=== PATIENT | female | born 1950 | race Caucasian/White ===

== ENCOUNTER → 2016-10-13 | Outpatient (CLI) | payer MEDICARE ==
--- NOTE | 2016-10-14 10:05 | PE ---
EXAMINATION TYPE: PET CT fusion skull to thigh DATE OF EXAM: 10/13/2016 11:39 AM COMPARISON: Previous study dated 05/26/2016. HISTORY: Left-sided breast cancer. TECHNIQUE: Following the intravenous administration of 13.62 mCi of F-18 FDG, whole body images are performed from the skull base to the midthigh. Images are reviewed on the computer in the coronal, a xial, and sagittal planes. Reconstructed rotating images are created on independent workstation and reviewed on the computer. A localization and attenuation correction CT is performed in conjunction with the PET scan. Blood glucose: 196 mg/dL Average liver SUV: 2.99 Average mediastinal SUV: 2.88 Total DLP: 580.02 mGy-cm SCAN: Lobulated mass in the axillary tail of the left breast previously measured 4.6 x 1.6 cm. Again measures 4.4 x 2 cm. Maximal SUV value is 3.13. Previously this had an SUV value of 3.03 No other hypermetabolic activity is seen. FINDINGS: SKULL BASE AND NECK: Major salivary glands are normal. The parapharyngeal, oropharyngeal and laryngeal soft tissues are normal. There is no significant cerv ical adenopathy. CHEST, MEDIASTINUM, AND HILAR REGION: There is diffuse groundglass opacity throughout both lungs. There are several nodular opacities which are stable in comparison with previous examination and do not demonstrate hypermetabolic activity. There is no significant internal mammary, mediastinal or hilar adenopathy. The heart is enlarged. The re is no pleural or pericardial fluid. ABDOMEN AND PELVIS: Within the abdomen, there is a gallstone within the gallbladder. The liver and sp freda appear normal. Both adrenal glands appear normal. The remaining abdominal viscera appear unremarkable. The bladder is not distended. The uterus is unremarkable. The left ovary is visualized but the right is not. Visualized bowel loops appear normal. OSSEOUS STRUCTURES: Once again, innumerable sclerotic and lytic lesions are present throughout the sp ine. None of these are hypermetabolic. There are healed rib fractures in the left lower chest. There is also a healed fracture in the right fourth rib posteriorly. This hypertrophic spondylosis within t he spine. OTHER CT: None. IMPRESSION: 1. DIFFUSE OSSEOUS METASTASES WHICH ARE NOT HYPERMETABOLIC. 2. STABLE TREATED NEOPLASM IN THE LEFT AXILLA WITHOUT SIGNIFICANT SUV. 3. MULTIPLE PULMONARY NODULES, UNCHANGED FROM PREVIOUS WITHOUT HYPERMETABOLIC ACTIVITY. 4. CHOLELITHIASIS. 5. DIFFUSE GROUNDGLASS OPACITY WITHIN THE LUNGS MAY REPRESENT ONGOING ALVEOLITIS.
== END | disposition home or self-care (01) ==
LOC: RADPETMAIN 08:08
PROVIDERS: ATTEND Internal Medicine Hematology & Oncology
DX: C50.411 Malignant neoplasm of upper-outer quadrant of right female breast (principal); C79.51 Secondary malignant neoplasm of bone
CPT/HCPCS: 78815; A9552

== ENCOUNTER → 2017-06-01 | Outpatient (CLI) | payer MEDICARE ==
--- NOTE | 2017-06-03 13:30 | PE ---
Nuclear medicine PET/CT HISTORY: Metastatic breast carcinoma, subsequent, C 50.411 Patient received 14.4 mCi F-18 FDG intravenously in delayed scanning was performed from the skull bas e to the mid thighs. Localization and attenuation correction CT scan was also performed. SUV measurements may be affected by patient body habitus. Neck and chest: The left breast mass seen on previous exam is again noted and measures approximately 3.8 cm in greatest transverse dimension, SUV approximately 4.1 as compared to prior exam when it zulma ured approximately 3.3 cm with an SUV of approximately 3. At the medial aspect of the left breast the re is a soft tissue density which is increased in size now measuring approximately 17 mm in greatest anterior to posterior dimension whereas on previous measuring approximately 8 mm, now shows an SUV of 3.7, increased from previous exam when it did not show associated hypermetabolic uptake. Some small pleural-based nodularity is present in the right upper lobe posterior laterally which was not seen on previous exam, some mild associated hypermetabolic uptake is associated. Lung nodules are again seen without uptake. These are similar in appearance. No pleural or pericardial effusion. Port-A-Cath in place as on prior exam. Right lobe of thyroid again shows a focus of hypermetabolic uptake. Abdomen pelvis: Some small focal areas of hypermetabolic uptake are suspected within the liver are no t well seen on CT. No retroperitoneal adenopathy. Dependent high density within the gallbladder conrado tible with gallstone. Osseous structures: Diffuse osseous metastatic disease is again seen. Too numerous to count lesions a re present as on prior. IMPRESSION: Progression of abnormal soft tissue suspected within the left breast. There may be underl dario metastatic disease involving the liver, liver MRI may be of benefit. Metastatic disease to the l ungs and bones suspected. Findings are suspicious for new pleural metastatic disease. Additional find ings above.
== END | disposition home or self-care (01) ==
LOC: RADPETMAIN 10:19
PROVIDERS: ATTEND Internal Medicine Hematology & Oncology
DX: C50.411 Malignant neoplasm of upper-outer quadrant of right female breast (principal)
CPT/HCPCS: 78815; A9552

== ENCOUNTER → 2017-06-13 | Outpatient (CLI) | payer MEDICARE ==
--- NOTE | 2017-06-14 10:11 | ECHOF ---
Referral Reason:Breast Cancer C50.411, z01.818 Pre Hercetin MEASUREMENTS -------- HEIGHT: 152.4 cm WEIGHT: 133.4 kg BP: RVIDd: 2.2 cm (< 3.3) IVSd: 1.3 cm (0.6 - 1.1) LVIDd: 4.1 cm (3.9 - 5.3) LVPWd: 1.1 cm (0.6 - 1.1) EDV(Teich): 73 ml IVSs: 1.5 cm LVIDs: 3.3 cm LVPWs: 1.3 cm %IVS Thck: 20 % ESV(Teich): 44 ml EF(Teich): 40 % %FS: 19 % SV(Teich): 29 ml LA Diam: 3.5 cm (2.7 - 3.8) Ao Diam: 4.5 cm (2.0 - 3.7) AV Cusp: 2.3 cm (1.5 - 2.6) LA Diam: 4.4 cm (2.7 - 3.8) MV EXCURSION: 15.235 mm (> 18.000) MV EF SLOPE: 88 mm/s (70 - 150) EPSS: 0.3 cm MV E Sukhdev: 0.85 m/s MV DecT: 181 ms MV Dec Lem[place]: 4.7 m/s MV A Sukhdev: 0.76 m/s MV E/A Ratio: 1.11 MV PHT: 52 ms E/E': 9.14 E': 0.09 m/s AV Vmax: 2.02 m/s AV maxP.33 mmHg TR Vmax: 2.73 m/s TR maxP.73 mmHg RAP: 5.00 mmHg RVSP: 34.73 mmHg FINDINGS -------- Sinus rhythm. This was a technically adequate study. Morbid Obesity The left ventricular size is normal. There is mild concentric left ventricular hypertrophy. Overa ll left ventricular systolic function is low-normal with, an EF between 50 - 55 %. The right ventricle is normal in size. The left atrial size is normal. The right atrial size is normal. The aortic valve was not well visualized. Mild mitral regurgitation is present. Mild tricuspid regurgitation present. There is mild pulmonary hypertension. The right ventricular systolic pressure, as measured by Doppler, is 34.73mmHg. The pulmonic valve was not well visualized. The aortic root size is normal. There is no pericardial effusion. CONCLUSIONS -------- 1. Morbid Obesity 2. The left ventricular size is normal. 3. There is mild concentric left ventricular hypertrophy. 4. Overall left ventricular systolic function is low-normal with, an EF between 50 - 55 %. 5. The aortic valve was not well visualized. 6. Mild mitral regurgitation is present. 7. Mild tricuspid regurgitation present. 8. There is mild pulmonary hypertension. 9. The right ventricular systolic pressure, as measured by Doppler, is 34.73mmHg. 10. The pulmonic valve was not well visualized. 11. The aortic root size is normal. 12. There is no pericardial effusion. ULTRASONIC SOLDERER: Sammi Ireland RDCS
== END | disposition home or self-care (01) ==
LOC: RADECHMAIN 12:32
PROVIDERS: ATTEND Internal Medicine Hematology & Oncology
DX: I08.1 Rheumatic disorders of both mitral and tricuspid valves (principal); E66.01 Morbid (severe) obesity due to excess calories
CPT/HCPCS: 93306

== ENCOUNTER → 2017-09-28 | Outpatient (CLI) | payer MEDICARE ==
--- NOTE | 2017-10-01 11:57 | PE ---
Nuclear medicine PET/CT HISTORY: Breast carcinoma left, subsequent Patient received 12.9 mCi F-18 FDG intravenously in delayed scanning was performed from the skull bas e to the mid thighs. An attenuation correction and localization CT scan was performed. Correlation to prior exam 06/01/2017 nuclear medicine PET/CT FINDINGS: Neck and chest: No evident cervical or mediastinal adenopathy. Right pectoral Port-A-Cath present via IJ approach extends into the superior vena cava. Left breast shows soft tissue which is lobular in a ppearance and associated calcification similar to prior exam, lesion shows hypermetabolic uptake late rally, SUV is 4.1. Similar lobular soft tissue noted medially in the left breast and is also stable in size, SUV 3.9. Multiple lung nodules are stable, commissary representative nodule in the left upper lobe late rally shows an SUV of 2.4. No axillary adenopathy. There are coronary artery calcifications present. Thyroid gland shows some increased activity diffusely somewhat, greater on the right than on the left , SUV approximately 4. Abdomen pelvis: Gallstones present within the gallbladder. No evident adrenal or liver mass. No retro peritoneal adenopathy or ascites. Bowel uptake is thought likely to be physiologic. Osseous structures: Diffuse to numerous to count scattered foci of increased density are present thro ughout the skeleton as on prior exam. Sternal metastatic focus measures approximately SUV 3. Proximal right humerus lesion shows an SUV 2.7, right rib lesion 3.0 at the second rib laterally. IMPRESSION: Findings appear stable compared to prior exam.
== END | disposition home or self-care (01) ==
LOC: RADPETMAIN 11:19
PROVIDERS: ATTEND Internal Medicine Hematology & Oncology
DX: C50.411 Malignant neoplasm of upper-outer quadrant of right female breast (principal)
CPT/HCPCS: 78815; A9552

== ENCOUNTER → 2017-10-22 | Outpatient (CLI) | payer MEDICARE ==
--- NOTE | 2017-10-22 10:35 | ECHOF ---
Referral Reason:C50.411 breast ca MEASUREMENTS -------- HEIGHT: 154.9 cm WEIGHT: 124.3 kg BP: 154/65 RVIDd: 3.3 cm (< 3.3) IVSd: 1.1 cm (0.6 - 1.1) LVIDd: 5.4 cm (3.9 - 5.3) LVPWd: 1.0 cm (0.6 - 1.1) IVSs: 1.3 cm LVIDs: 3.5 cm LVPWs: 1.7 cm LA Diam: 3.6 cm (2.7 - 3.8) LAESV Index (A-L): 33.76 ml/m Ao Diam: 3.0 cm (2.0 - 3.7) AV Cusp: 1.8 cm (1.5 - 2.6) MV EXCURSION: 13.275 mm (> 18.000) MV EF SLOPE: 78 mm/s (70 - 150) EPSS: 0.2 cm MV E Sukhdev: 1.01 m/s MV DecT: 216 ms MV A Sukhdev: 0.70 m/s MV E/A Ratio: 1.44 RAP: 5.00 mmHg RVSP: 30.88 mmHg FINDINGS -------- Sinus rhythm. This was a technically adequate study. This was a technically difficult study with suboptimal views . The left ventricle is mildly dilated. There is borderline concentric left ventricular hypertrophy. Overall left ventricular systolic function is low-normal with, an EF between 50 - 55 %. The right ventricle is mildly enlarged. Normal LA size by volume 22+/-6 ml/m2. The right atrium is normal in size. The aortic valve was not well visualized. Mild mitral annular calcification present. Mild tricuspid regurgitation present. Right ventricular systolic pressure is normal at < 35 mmHg. The pulmonic valve was not well visualized. The aortic root size is normal. Normal inferior vena cava with normal inspiratory collapse consistent with estimated right atrial pre ssure of 5 mmHg. There is no pericardial effusion. CONCLUSIONS -------- 1. Sinus rhythm. 2. This was a technically adequate study. 3. This was a technically difficult study with suboptimal views. 4. The left ventricle is mildly dilated. 5. There is borderline concentric left ventricular hypertrophy. 6. Overall left ventricular systolic function is low-normal with, an EF between 50 - 55 %. 7. The right ventricle is mildly enlarged. 8. Normal LA size by volume 22+/-6 ml/m2. 9. The right atrium is normal in size. 10. The aortic valve was not well visualized. 11. Mild mitral annular calcification present. 12. Mild tricuspid regurgitation present. 13. Right ventricular systolic pressure is normal at < 35 mmHg. 14. The pulmonic valve was not well visualized. 15. The aortic root size is normal. 16. Normal inferior vena cava with normal inspiratory collapse consistent with estimated right atrial pressure of 5 mmHg. 17. There is no pericardial effusion. SUBSORTER: Cara Roberts RDCS
== END | disposition home or self-care (01) ==
LOC: RADECHMAIN 08:11
PROVIDERS: ATTEND Internal Medicine Hematology & Oncology
DX: Z01.818 Encounter for other preprocedural examination (principal); C50.411 Malignant neoplasm of upper-outer quadrant of right female breast; I07.1 Rheumatic tricuspid insufficiency; I70.8 Atherosclerosis of other arteries
CPT/HCPCS: 93306

== ENCOUNTER → 2018-02-24 | Outpatient (CLI) | payer MEDICARE ==
--- NOTE | 2018-02-24 09:57 | ECHOF ---
Referral Reason:z01.818 / cHEMO / bREAST cANCER MEASUREMENTS -------- HEIGHT: 154.9 cm WEIGHT: 116.1 kg BP: 178/100 RVIDd: 3.0 cm (< 3.3) IVSd: 1.3 cm (0.6 - 1.1) LVIDd: 3.9 cm (3.9 - 5.3) LVPWd: 1.3 cm (0.6 - 1.1) IVSs: 1.5 cm LVIDs: 3.1 cm LVPWs: 1.7 cm LA Diam: 3.6 cm (2.7 - 3.8) LAESV Index (A-L): 23.90 ml/m Ao Diam: 3.0 cm (2.0 - 3.7) AV Cusp: 1.8 cm (1.5 - 2.6) MV EXCURSION: 11.453 mm (> 18.000) MV EF SLOPE: 64 mm/s (70 - 150) EPSS: 0.9 cm MV E Sukhdev: 0.90 m/s MV DecT: 216 ms MV A Sukhdev: 0.81 m/s MV E/A Ratio: 1.11 AV maxP.72 mmHg AV meanP.05 mmHg AR PHT: 548 ms RAP: 5.00 mmHg RVSP: 25.16 mmHg FINDINGS -------- Sinus rhythm. This was a technically adequate study. The left ventricular size is normal. There is mild concentric left ventricular hypertrophy. Overa ll left ventricular systolic function is normal with, an EF between 55 - 60 %. The right ventricle is normal in size. The left atrial size is normal. The right atrium is normal in size. There is mild aortic valve sclerosis. There is mild aortic regurgitation. There is mild aortic st enosis present. The mitral valve leaflets are mildly thickened. Mild mitral annular calcification present. Mild tricuspid regurgitation present. Right ventricular systolic pressure is normal at < 35 mmHg. Trace/mild (physiologic) pulmonic regurgitation. The aortic root size is normal. Normal inferior vena cava with normal inspiratory collapse consistent with estimated right atrial pre ssure of 5 mmHg. There is no pericardial effusion. CONCLUSIONS -------- 1. Sinus rhythm. 2. This was a technically adequate study. 3. The left ventricular size is normal. 4. There is mild concentric left ventricular hypertrophy. 5. Overall left ventricular systolic function is normal with, an EF between 55 - 60 %. 6. The right ventricle is normal in size. 7. The left atrial size is normal. 8. The right atrium is normal in size. 9. There is mild aortic valve sclerosis. 10. There is mild aortic regurgitation. 11. There is mild aortic stenosis present. 12. The mitral valve leaflets are mildly thickened. 13. Mild mitral annular calcification present. 14. Mild tricuspid regurgitation present. 15. Right ventricular systolic pressure is normal at < 35 mmHg. 16. Trace/mild (physiologic) pulmonic regurgitation. 17. The aortic root size is normal. 18. Normal inferior vena cava with normal inspiratory collapse consistent with estimated right atrial pressure of 5 mmHg. 19. There is no pericardial effusion. KICK PRESS SETTER: Cara Roberts RDCS
== END | disposition home or self-care (01) ==
LOC: RADECHMAIN 08:02
PROVIDERS: ATTEND Internal Medicine Hematology & Oncology
DX: Z01.818 Encounter for other preprocedural examination (principal); C50.411 Malignant neoplasm of upper-outer quadrant of right female breast; I08.2 Rheumatic disorders of both aortic and tricuspid valves
CPT/HCPCS: 93306

== ENCOUNTER → 2018-06-02 | Outpatient (CLI) | payer MEDICARE ==
--- NOTE | 2018-06-03 18:22 | ECHOF ---
Referral Reason:Z01.818 Chemo / C50.411 Breast cancer MEASUREMENTS -------- HEIGHT: 0.0 cm WEIGHT: 0.0 kg BP: RVIDd: 2.6 cm (< 3.3) IVSd: 1.3 cm (0.6 - 1.1) LVIDd: 3.7 cm (3.9 - 5.3) LVPWd: 1.3 cm (0.6 - 1.1) IVSs: 1.5 cm LVIDs: 2.6 cm LVPWs: 1.7 cm LA Diam: 4.0 cm (2.7 - 3.8) LAESV Index (A-L): 23.37 ml/m Ao Diam: 2.7 cm (2.0 - 3.7) LA Diam: 4.1 cm (2.7 - 3.8) MV EXCURSION: 17.354 mm (> 18.000) MV EF SLOPE: 78 mm/s (70 - 150) EPSS: 0.4 cm MV E Sukhdev: 0.61 m/s MV DecT: 305 ms MV A Sukhdev: 0.74 m/s MV E/A Ratio: 0.82 AV maxP.84 mmHg AV meanP.91 mmHg RAP: 5.00 mmHg RVSP: 12.32 mmHg FINDINGS -------- Sinus rhythm. This was a technically adequate study. The left ventricular size is normal. There is mild concentric left ventricular hypertrophy. Overa ll left ventricular systolic function is low-normal with, an EF between 50 - 55 %. The right ventricle is normal in size. The left atrial size is normal. Normal LA size by volume 22+/-6 ml/m2. The right atrial size is normal. There is mild aortic valve sclerosis. There is mild aortic stenosis present. Peak/mean gradient a cross the Aortic Valve is 17.84mmHg / 9.91mmHg. Mild mitral annular calcification present. Mild mitral regurgitation is present. Mild tricuspid regurgitation present. There is no evidence of pulmonary hypertension. The right v entricular systolic pressure, as measured by Doppler, is 12.32mmHg. The pulmonic valve was not well visualized. The aortic root size is normal. There is no pericardial effusion. CONCLUSIONS -------- 1. The left ventricular size is normal. 2. There is mild concentric left ventricular hypertrophy. 3. Overall left ventricular systolic function is low-normal with, an EF between 50 - 55 %. 4. The right ventricle is normal in size. 5. The left atrial size is normal. 6. Normal LA size by volume 22+/-6 ml/m2. 7. The right atrial size is normal. 8. There is mild aortic valve sclerosis. 9. There is mild aortic stenosis present. 10. Peak/mean gradient across the Aortic Valve is 17.84mmHg / 9.91mmHg. 11. Mild mitral annular calcification present. 12. Mild mitral regurgitation is present. 13. Mild tricuspid regurgitation present. 14. There is no evidence of pulmonary hypertension. 15. The right ventricular systolic pressure, as measured by Doppler, is 12.32mmHg. 16. The pulmonic valve was not well visualized. 17. The aortic root size is normal. 18. There is no pericardial effusion. CHILDREN'S ENTERTAINER: Sammi Ireland RDCS
== END | disposition home or self-care (01) ==
LOC: RADECHMAIN 14:25
PROVIDERS: ATTEND Internal Medicine Hematology & Oncology
DX: Z01.818 Encounter for other preprocedural examination (principal); I08.3 Combined rheumatic disorders of mitral, aortic and tricuspid valves; C50.411 Malignant neoplasm of upper-outer quadrant of right female breast
CPT/HCPCS: 93306

== ENCOUNTER → 2018-06-07 | Outpatient (CLI) | payer MEDICARE ==
--- NOTE | 2018-06-07 15:50 | PE ---
EXAMINATION TYPE: PET CT fusion skull to thigh DATE OF EXAM: 06/07/2018 COMPARISON: Most recent PET CT September 28, 2017 and older PET CTs. HISTORY: History of left sided breast cancer diagnosed 2015 completed chemotherapy June 04, 2018. TECHNIQUE: Following the intravenous administration of 14.25 mCi of F-18 FDG, whole body images are performed from the skull base to the midthigh. Images are reviewed on the computer in the coronal, a xial, and sagittal planes. Reconstructed rotating images are created on independent workstation and reviewed on the computer. A noncontrast CT is performed in conjunction with the PET scan. SCAN: Subsequent Scan FINDINGS: SKULL BASE AND NECK: No new areas of suspicious hypermetabolic uptake are present in the neck. There is hypermetabolic right thyroid nodule with max SUV 3.08 axial image 59 redemonstrated. CHEST, MEDIASTINUM, AND HILAR REGION: There are 2 adjacent medial soft tissue nodules in the left maya ast redemonstrated appear slightly more prominent in size versus most recent PET/CT, lateral one zulma ures 1.4 x 1.9 cm transversely axial image 80. More medial one measures 1.8 x 1.6 cm transversely axi al image 78 and shows persistent increased hypermetabolic uptake with max SUV of 4.1 on current study . Upper-outer quadrant laterally abutting the skin surface with calcification there is hypermetabolic n odule posteriorly axial image 69 with max SUV 3.45. This lesion or 2 adjacent lesions measures 3.8 x 2.0 cm axial image 67 with similar measurements to most recent prior PET/CT. Mild skin thickening and hypermetabolic uptake anteriorly in the left breast remains present without significant interval change. Scattered ametabolic pulmonary nodules remain present, 2 adjacent nodules anterior left upper to midl juani axial image 80 are not significantly changed in size or appearance from most recent CT for refere nce. Larger nodule laterally left lung base on axial image 94 is not significantly changed and remain s ametabolic. ABDOMEN AND PELVIS: Diffuse uptake throughout the liver and bowel is redemonstrated, no suspicious ne w hypermetabolic focal uptake is clearly seen. OSSEOUS STRUCTURES: No new suspicious hypermetabolic uptake is clearly identified. OTHER CT: There is stable right internal jugular Mediport catheter terminating in SVC. There is redemonstration of coronary artery cavitation which is noted marker for coronary artery dise ase. There are enlarged right and main pulmonary arteries, CT findings consistent with underlying pul monary artery hypertension. Dependent gallstone in gallbladder is redemonstrated. Some cortical thinning in both kidneys is again seen. There is moderate to severe calcified plaque of aorta extending into branch vessels. Diffuse osseous sclerotic metastatic disease throughout the spine and pelvis including bilateral ribs and sternum in visualized portion of shoulders and hips is redemonstrated. IMPRESSION: No significant interval change as detailed above. Treated osseous metastatic disease. No new hypermetabolic lesions identified. EORTC response criteria: Stable Metabolic Disease. Change in MaxSUV < 25% Primary tumor response WHO category: NC - No change
== END ==
LOC: RADPETMAIN 09:24
PROVIDERS: ATTEND Internal Medicine Hematology & Oncology
DX: C50.411 Malignant neoplasm of upper-outer quadrant of right female breast (principal); C79.51 Secondary malignant neoplasm of bone; E88.9 Metabolic disorder, unspecified
CPT/HCPCS: 78815; A9552

== ENCOUNTER → 2018-08-22 | Outpatient (CLI) | payer MEDICARE ==
--- NOTE | 2018-08-22 11:39 | CT ---
EXAMINATION TYPE: CT lumbar spine wo con DATE OF EXAM: 08/22/2018 8:29 AM COMPARISON: PET/CT June 07, 2018 HISTORY: Breast CA with mets to bone. prior radiation to spine. Low back pain CT DLP: 2367.2 mGycm Automated exposure control for dose reduction was used. 5 lumbar-type vertebra are redemonstrated. There is redemonstration of dextroconvex scoliotic curvatu re centered in the lower lumbar spine. There are innumerable sclerotic metastatic lesions throughout the visualized thoracolumbar spine and pelvis. There is grade 1 anterolisthesis of L5 on S1 with adva nced disc space narrowing. No acute fracture or dislocation is seen. There is advanced disc space ernie rowing with vacuum disc phenomenon L2-L3 and L3-L4 levels. There is moderate disc space narrowing wit h vacuum disc phenomenon L4-L5 level. Multilevel moderate to severe anterior lateral spurring is pres ent. There is calcification effacing anterior thecal sac presumed calcified spur disc complex T12-L1 level on sagittal image 35 which correlates with axial image 26. Review of axial images shows additional moderate broad disc bulge and mild facet degenerative changes L3-L4 level with some effacement of anterior thecal sac axial image 54. There is moderate to severe broad disc bulge with moderate facet degenerative changes bilaterally cau sing effacement anterior posterior lateral thecal sac at L4-L5 level axial image 64. Bilateral pars defect L5 level are present. Sagittal images do not extend through bilateral neural foramina making evaluation suboptimal. There i s suspected multilevel bilateral neural foraminal narrowing most prominent in the mid to lower lumbar spine. There is partial visualization of suspicious nodules left lower lobe axial image 9 which correlates w ith PET/CT. There is moderate calcified plaque of the infrarenal abdominal aorta extending into iliac branch vessels with focal ectasia redemonstrated. IMPRESSION: Diffuse osseous metastatic disease redemonstrated. Multilevel fairly advanced degenerati ve changes noted as detailed above..
== END | disposition home or self-care (01) ==
LOC: RADCTMAIN 08:04
PROVIDERS: ATTEND Internal Medicine Hematology & Oncology
DX: C79.51 Secondary malignant neoplasm of bone (principal); M54.5 Low back pain; C50.419 Malignant neoplasm of upper-outer quadrant of unspecified female breast
CPT/HCPCS: 72131

== ENCOUNTER → 2018-09-23 | Outpatient (CLI) | payer MEDICARE ==
--- NOTE | 2018-09-23 11:48 | ECHOF ---
Referral Reason:C50.411 Breast Ca Z01.818 Chemo MEASUREMENTS -------- HEIGHT: 152.4 cm WEIGHT: 113.4 kg BP: RVIDd: 3.2 cm (< 3.3) IVSd: 1.3 cm (0.6 - 1.1) LVIDd: 4.2 cm (3.9 - 5.3) LVPWd: 1.5 cm (0.6 - 1.1) IVSs: 1.7 cm LVIDs: 3.4 cm LVPWs: 1.3 cm LA Diam: 3.7 cm (2.7 - 3.8) LAESV Index (A-L): 27.44 ml/m MV EXCURSION: 17.180 mm (> 18.000) MV EF SLOPE: 86 mm/s (70 - 150) EPSS: 0.5 cm MV E Sukhdev: 0.59 m/s MV DecT: 263 ms MV A Sukhdev: 0.72 m/s MV E/A Ratio: 0.83 AV maxP.82 mmHg AV meanP.60 mmHg AR PHT: 282 ms RAP: 5.00 mmHg RVSP: 40.48 mmHg FINDINGS -------- Sinus rhythm. This was a technically adequate study. The left ventricular size is normal. There is mild concentric left ventricular hypertrophy. Overa ll left ventricular systolic function is normal with, an EF between 55 - 60 %. The right ventricle is normal in size. Normal LA size by volume 22+/-6 ml/m2. The right atrial size is normal. There is mild aortic valve sclerosis. There is mild aortic regurgitation. There is mild aortic st enosis present. Peak/mean gradient across the Aortic Valve is 18.82mmHg / 7.60mmHg. Mild mitral annular calcification present. Mild mitral regurgitation is present. Mild tricuspid regurgitation present. There is mild pulmonary hypertension. The right ventricular systolic pressure, as measured by Doppler, is 40.48mmHg. Trace/mild (physiologic) pulmonic regurgitation. The aortic root size is normal. There is no pericardial effusion. CONCLUSIONS -------- 1. Sinus rhythm. 2. This was a technically adequate study. 3. The left ventricular size is normal. 4. There is mild concentric left ventricular hypertrophy. 5. Overall left ventricular systolic function is normal with, an EF between 55 - 60 %. 6. Normal LA size by volume 22+/-6 ml/m2. 7. There is mild aortic valve sclerosis. 8. There is mild aortic regurgitation. 9. There is mild aortic stenosis present. 10. Peak/mean gradient across the Aortic Valve is 18.82mmHg / 7.60mmHg. 11. Mild mitral annular calcification present. 12. Mild mitral regurgitation is present. 13. Mild tricuspid regurgitation present. 14. There is mild pulmonary hypertension. 15. Trace/mild (physiologic) pulmonic regurgitation. 16. The aortic root size is normal. 17. There is no pericardial effusion. PRECINCT COMMANDING OFFICER: Sammi Ireland RDCS
== END | disposition home or self-care (01) ==
LOC: RADECHMAIN 08:27
PROVIDERS: ATTEND Internal Medicine Hematology & Oncology
DX: Z01.818 Encounter for other preprocedural examination (principal); I08.3 Combined rheumatic disorders of mitral, aortic and tricuspid valves; I27.20 Pulmonary hypertension, unspecified; C50.411 Malignant neoplasm of upper-outer quadrant of right female breast
CPT/HCPCS: 93306

== ENCOUNTER → 2018-09-27 | Outpatient (CLI) | payer MEDICARE ==
--- NOTE | 2018-09-30 09:56 | PE ---
Nuclear medicine PET/CT HISTORY: Breast cancer, subsequent Patient received 12.5 mCi F-18 FDG intravenously in delayed scanning was performed from the skull bas e to the mid thighs. Localization and attenuation correction CT scan was performed. Correlation to prior nuclear medicine PET/CT 06/07/2018 Neck and chest: There is no supraclavicular or cervical adenopathy. Right-sided Port-A-Cath is presen t in the soft tissues, right jugular approach, catheter courses to the level of the cavoatrial juncti on. There is a left-sided breast mass measuring approximately 3.8 x 2.5 cm medially with SUV 4.5, sim ilar configuration to prior exam. In the lateral aspect of the left breast the soft tissue mass previ ously identified is not as well included in the [id number] as on prior but shows a similar appeara nce, SUV 4.4. The thyroid gland shows some increased hypermetabolic uptake in the right lobe measurin g 3.4 SUV. Pulmonary artery is mildly prominent. There are prevascular nodes present. Pleural nodularity again noted. Left lower lobe lung nodules show similar appearance as do the right upper lobe nodules. ABDOMEN: Bowel uptake is likely physiologic. No evident retroperitoneal adenopathy. No ascites. There is heterogeneity of uptake within the liver. Osseous structures show diffuse sclerotic metastasis similar to prior exam. The right second rib show s hypermetabolic uptake, SUV is 3, humeral head uptake 3.5 on the left, 2.7 on the right, manubrial u ptake SUV 3.1, T11 vertebral body SUV 3.9, anterior left ilium SUV 4.0 as examples. IMPRESSION: Metastatic disease as described is similar to prior exam.
== END | disposition home or self-care (01) ==
LOC: RADPETMAIN 08:25
PROVIDERS: ATTEND Internal Medicine Hematology & Oncology
DX: C79.51 Secondary malignant neoplasm of bone (principal); N63.20 Unspecified lump in the left breast, unspecified quadrant; R91.8 Other nonspecific abnormal finding of lung field; C50.411 Malignant neoplasm of upper-outer quadrant of right female breast
CPT/HCPCS: 78815; A9552

== ENCOUNTER → 2019-02-23 | Outpatient (CLI) | payer MEDICARE ==
--- NOTE | 2019-02-23 18:47 | ECHOF ---
Referral Reason:C50.411 Breast ca Z01.818 Chemo Exposure MEASUREMENTS -------- HEIGHT: 154.9 cm WEIGHT: 108.9 kg BP: LAESV Index (A-L): 24.08 ml/m Ao Diam: 2.8 cm (2.0 - 3.7) LA Diam: 2.6 cm (2.7 - 3.8) AV Cusp: 1.4 cm (1.5 - 2.6) EPSS: 0.6 cm MV E Sukhdev: 0.91 m/s MV DecT: 195 ms MV A Sukhdev: 0.80 m/s MV E/A Ratio: 1.13 AV maxP.84 mmHg AV meanP.85 mmHg RAP: 5.00 mmHg RVSP: 16.42 mmHg %FS: 41.91 % EDV(Teich): 103.39 ml EF(Teich): 72.86 % ESV(Teich): 28.06 ml IVSd: 1.01 cm (0.6 - 1.1) IVSs: 1.35 cm LVIDd: 4.72 cm (3.9 - 5.3) LVIDs: 2.74 cm LVPWd: 1.01 cm (0.6 - 1.1) LVPWs: 1.60 cm MV EF SLOPE: 42.63 mm/s (70 - 150) MV EXCURSION: 14.58 mm (> 18.000) SV(Teich): 75.33 ml FINDINGS -------- Sinus rhythm. This was a technically adequate study. The left ventricular size is normal. Left ventricular wall thickness is normal. Overall left vent ricular systolic function is normal with, an EF between 55 - 60 %. The right ventricle is normal in size. The left atrial size is normal. The right atrial size is normal. Aortic valve is trileaflet and is mildly thickened. There is mild aortic stenosis present. Peak/m anthony gradient across the Aortic Valve is 21.84mmHg / 13.85mmHg. The mitral valve is normal. There is trace mitral regurgitation. Mild tricuspid regurgitation present. Right ventricular systolic pressure is normal at < 35 mmHg. There is no pulmonic regurgitation present. The aortic root size is normal. Normal inferior vena cava with normal inspiratory collapse consistent with estimated right atrial pre ssure of 5 mmHg. The pulmonary veins were not recorded. There is no pericardial effusion. CONCLUSIONS -------- 1. Sinus rhythm. 2. This was a technically adequate study. 3. The left ventricular size is normal. 4. Left ventricular wall thickness is normal. 5. Overall left ventricular systolic function is normal with, an EF between 55 - 60 %. 6. The right ventricle is normal in size. 7. The left atrial size is normal. 8. The right atrial size is normal. 9. Aortic valve is trileaflet and is mildly thickened. 10. There is mild aortic stenosis present. 11. Peak/mean gradient across the Aortic Valve is 21.84mmHg / 13.85mmHg. 12. The mitral valve is normal. 13. There is trace mitral regurgitation. 14. Mild tricuspid regurgitation present. 15. Right ventricular systolic pressure is normal at < 35 mmHg. 16. There is no pulmonic regurgitation present. 17. The aortic root size is normal. 18. Normal inferior vena cava with normal inspiratory collapse consistent with estimated right atrial pressure of 5 mmHg. 19. The pulmonary veins were not recorded. 20. There is no pericardial effusion. HOSE TURNER: Rosemarie Hutchinson, RYNECS
== END | disposition home or self-care (01) ==
LOC: RADECHMAIN 11:02
PROVIDERS: ATTEND Internal Medicine Hematology & Oncology
DX: Z01.818 Encounter for other preprocedural examination (principal); I35.0 Nonrheumatic aortic (valve) stenosis; I07.1 Rheumatic tricuspid insufficiency; I35.8 Other nonrheumatic aortic valve disorders; C50.411 Malignant neoplasm of upper-outer quadrant of right female breast
CPT/HCPCS: 93306

== ENCOUNTER 2019-08-27 10:35 | Inpatient (IN) | payer MEDICARE ==
--- NOTE | 2019-08-27 10:56 | ED ---
General Adult HPI - General Chief complaint: Shortness of Breath Stated complaint: VANDANA Time Seen by Provider: 08/27/19 10:45 Source: patient, RN notes reviewed Mode of arrival: wheelchair Limitations: no limitations - History of Present Illness Initial comments: Patient 69-year-old female significant past medical history for breast cancer, metastasis to the bone, presented to the emergency room today with chief complaint of increased shortness breath over the last 2 weeks. She does not that she went to her oncologist office today for injections. She states that her pulse ox was low and she was advised come here to the emergency room. She has noticed that she's had increased shortness of breath last 2 weeks. Patient does not that she's had some increased swelling to the lower legs. Patient does not that the symptoms increase with exertion. Patient denies any other points her symptoms. Patient denies any recent fever, chills, chest pain, back pain, abdominal pain, nausea or vomiting, numbness or tingling, headaches or visual changes, or any other complaints. - Related Data Home Medications Medication Instructions Recorded Confirmed Atenolol [Tenormin] 25 mg PO DAILY 09/16/14 08/27/19 Enalapril Maleate 10 mg PO DAILY 09/16/14 08/27/19 Insulin Lispro [humaLOG Kwikpen] See Protocol SQ AC-TID 09/16/14 08/27/19 Levothyroxine Sodium [Synthroid] 125 mcg PO DAILY 09/16/14 08/27/19 metFORMIN HCL 1,000 mg PO AC-BID 09/16/14 08/27/19 Omeprazole [PriLOSEC] 20 mg PO DAILY PRN 06/19/17 08/27/19 traMADol HCL [Ultram] 100 mg PO Q6H PRN 06/19/17 08/27/19 Gabapentin [Neurontin] 400 mg PO QID 08/27/19 08/27/19 Mometasone Furoate [Elocon 1 applic TOPICAL DAILY 08/27/19 08/27/19 Ointment] Mupirocin Calcium 2% Cream 1 applic TOPICAL TID 08/27/19 08/27/19 [Bactroban 2% Cream] Nystatin 100,000Unit/gm Cream 1 applic TOPICAL DAILY 08/27/19 08/27/19 [Mycostatin Cream] glipiZIDE [Glucotrol] 10 mg PO AC-BID 08/27/19 08/27/19 Allergies Allergy/AdvReac Type Severity Reaction Status Date / Time anastrozole Allergy Unknown Verified 08/27/19 11:25 ciprofloxacin [From Cipro] Allergy Unknown Verified 08/27/19 11:25 ibuprofen Allergy Swelling Verified 08/27/19 11:25 Iodinated Contrast Media Allergy Rash/Hives Verified 08/27/19 11:25 [Iodinated Contrast Media - IV Dye] Review of Systems ROS Statement: Those systems with pertinent positive or pertinent negative responses have been documented in the HPI. ROS Other: All systems not noted in ROS Statement are negative. Past Medical History Past Medical History: Cancer, Diabetes Mellitus, GERD/Reflux, Hypertension, Thyroid Disorder Additional Past Medical History / Comment(s): recent breast cancer diagnosis. Bone metastasis mar 2019 states dx shingles, and has vision left eye issues History of Any Multi-Drug Resistant Organisms: None Reported Past Surgical History: No Surgical Hx Reported Additional Past Surgical History / Comment(s): PORT INSERTION. Past Anesthesia/Blood Transfusion Reactions: No Reported Reaction Additional Past Anesthesia/Blood Transfusion Reaction / Comment(s): no previous anesthesia Past Psychological History: No Psychological Hx Reported Smoking Status: Former smoker Past Alcohol Use History: None Reported Past Drug Use History: None Reported - Past Family History Mother Family Medical History: Blood Disorder Additional Family Medical History / Comment(s): blood clots Sister(s) Family Medical History: Blood Disorder Additional Family Medical History / Comment(s): blood clots Daughter(s) Family Medical History: Blood Disorder Additional Family Medical History / Comment(s): blood clots General Exam - General Exam Comments Initial Comments: General: The patient is awake and alert, in no distress, and does not appear acutely ill. Eye: Pupils are equal, round and reactive to light, extra-ocular movements are intact. No nystagmus. There is normal conjunctiva bilaterally. No signs of icterus. Ears, nose, mouth and throat: There are moist mucous membranes and no oral lesions. Neck: The neck is supple Cardiovascular: There is a regular rate and rhythm. Respiratory: Lungs are clear to auscultation, respirations are non-labored, breath sounds are equal. No wheezes, stridor, rales, or rhonchi. decreased lung sounds. Gastrointestinal: Nontender. Musculoskeletal: Normal ROM, no tenderness. Strength 5/5. Sensation intact. Pulses equal bilaterally 2+. Neurological: A&O x 3. CN II-XII intact, There are no obvious motor or sensory deficits. Coordination appears grossly intact. Speech is normal. Skin: Skin is warm and dry and no rashes or lesions are noted. Psychiatric: Cooperative, appropriate mood & affect, normal judgment. Limitations: no limitations Course Vital Signs 08/27/19 08/27/19 08/27/19 10:39 12:04 12:30 Temperature 98.1 F Pulse Rate 92 87 Respiratory 18 22 18 Rate Blood Pressure 168/84 177/79 O2 Sat by Pulse 90 L 95 Oximetry Medical Decision Making - Medical Decision Making Patient reexamined at this time she is resting comfortably. She doesn't feeling short of breath. Her chest x-ray does show fluid overload. Will be started on IV Lasix here in emergency room and admitted to the hospital. Case was discussed with physician Dr. Duong. - Lab Data Result diagrams: 08/27/19 11:45 08/27/19 11:45 Lab Results 08/27/19 08/27/19 08/27/19 Range/Units 11:45 11:45 11:45 WBC 7.6 (3.8-10.6) k/uL RBC 4.32 (3.80-5.40) m/uL Hgb 11.3 L (11.4-16.0) gm/dL Hct 36.7 (34.0-46.0) % MCV 84.8 (80.0-100.0) fL MCH 26.2 (25.0-35.0) pg MCHC 30.9 L (31.0-37.0) g/dL RDW 18.3 H (11.5-15.5) % Plt Count 417 (150-450) k/uL Neutrophils % 78 % Lymphocytes % 11 % Monocytes % 5 % Eosinophils % 4 % Basophils % 1 % Neutrophils # 5.9 (1.3-7.7) k/uL Lymphocytes # 0.8 L (1.0-4.8) k/uL Monocytes # 0.4 (0-1.0) k/uL Eosinophils # 0.3 (0-0.7) k/uL Basophils # 0.1 (0-0.2) k/uL Hypochromasia Marked Anisocytosis Slight PT (9.0-12.0) sec INR (<1.2) APTT (22.0-30.0) sec Sodium 139 (137-145) mmol/L Potassium 4.4 (3.5-5.1) mmol/L Chloride 101 (98-107) mmol/L Carbon Dioxide 28 (22-30) mmol/L Anion Gap 10 mmol/L BUN 18 H (7-17) mg/dL Creatinine 0.89 (0.52-1.04) mg/dL Est GFR (CKD-EPI)AfAm 77 (>60 ml/min/1.73 sqM) Est GFR (CKD-EPI)NonAf 66 (>60 ml/min/1.73 sqM) Glucose 246 H (74-99) mg/dL Plasma Lactic Acid Jaswant 1.5 (0.7-2.0) mmol/L Calcium 9.5 (8.4-10.2) mg/dL Total Bilirubin 0.5 (0.2-1.3) mg/dL AST 31 (14-36) U/L ALT 11 (4-34) U/L Alkaline Phosphatase 137 H (38-126) U/L Troponin I (0.000-0.034) ng/mL Total Protein 7.4 (6.3-8.2) g/dL Albumin 3.8 (3.5-5.0) g/dL 08/27/19 08/27/19 Range/Units 11:45 11:45 WBC (3.8-10.6) k/uL RBC (3.80-5.40) m/uL Hgb (11.4-16.0) gm/dL Hct (34.0-46.0) % MCV (80.0-100.0) fL MCH (25.0-35.0) pg MCHC (31.0-37.0) g/dL RDW (11.5-15.5) % Plt Count (150-450) k/uL Neutrophils % % Lymphocytes % % Monocytes % % Eosinophils % % Basophils % % Neutrophils # (1.3-7.7) k/uL Lymphocytes # (1.0-4.8) k/uL Monocytes # (0-1.0) k/uL Eosinophils # (0-0.7) k/uL Basophils # (0-0.2) k/uL Hypochromasia Anisocytosis PT 10.3 (9.0-12.0) sec INR 1.0 (<1.2) APTT 24.1 (22.0-30.0) sec Sodium (137-145) mmol/L Potassium (3.5-5.1) mmol/L Chloride (98-107) mmol/L Carbon Dioxide (22-30) mmol/L Anion Gap mmol/L BUN (7-17) mg/dL Creatinine (0.52-1.04) mg/dL Est GFR (CKD-EPI)AfAm (>60 ml/min/1.73 sqM) Est GFR (CKD-EPI)NonAf (>60 ml/min/1.73 sqM) Glucose (74-99) mg/dL Plasma Lactic Acid Jaswant (0.7-2.0) mmol/L Calcium (8.4-10.2) mg/dL Total Bilirubin (0.2-1.3) mg/dL AST (14-36) U/L ALT (4-34) U/L Alkaline Phosphatase (38-126) U/L Troponin I <0.012 (0.000-0.034) ng/mL Total Protein (6.3-8.2) g/dL Albumin (3.5-5.0) g/dL Disposition Clinical Impression: CHF exacerbation, Hypoxia Disposition: ADMITTED IP TO THIS HOSP Condition: Stable Referrals: Keagan Alfaro DO [Primary Care Provider] - 1-2 days Time of Disposition: 13:00
[2019-08-27 12:13] LABS: Partial Thromboplastin Time 24.1 sec (22.0-30.0); Prothrombin Time 10.3 sec (9.0-12.0)
[2019-08-27 12:14] LABS: Albumin 3.8 g/dL (3.5-5.0); Calcium 9.5 mg/dL (8.4-10.2); Potassium 4.4 mmol/L (3.5-5.1); Total Bilirubin 0.5 mg/dL (0.2-1.3); Total Protein 7.4 g/dL (6.3-8.2)
[2019-08-27 12:25] LABS: Anisocytosis Slight; Basophils # (A) 0.1 k/uL (0-0.2); Basophils % (A) 1 %; Eosinophils # (A) 0.3 k/uL (0-0.7); Eosinophils % (A) 4 %; HCT 36.7 % (34.0-46.0); HGB 11.3 gm/dL (11.4-16.0); Hypochromasia Marked; Lymphocytes # (A) 0.8 k/uL (1.0-4.8); Lymphocytes % (A) 11 %; MCH 26.2 pg (25.0-35.0); MCHC 30.9 g/dL (31.0-37.0); MCV 84.8 fL (80.0-100.0); Monocytes # (A) 0.4 k/uL (0-1.0); Monocytes % (A) 5 %; Neutrophils # (A) 5.9 k/uL (1.3-7.7); Neutrophils % (A) 78 %; Platelet Count 417 k/uL (150-450); RBC 4.32 m/uL (3.80-5.40); RDW 18.3 % (11.5-15.5); WBC 7.6 k/uL (3.8-10.6)
--- NOTE | 2019-08-27 12:40 | XR ---
EXAMINATION TYPE: XR chest 2V DATE OF EXAM: 08/27/2019 COMPARISON: 10/01/2014 HISTORY: Shortness of breath TECHNIQUE: Frontal and lateral views of the chest are obtained. FINDINGS: Diffuse osseous metastatic disease is seen. Right-sided Mediport is noted. New fluid overl oad cardiomediastinal silhouette enlargement, moderate interstitial pulmonary edema and trace bilater al pleural effusions. Bibasilar associated airspace disease. IMPRESSION: New fluid overload with moderate interstitial pulmonary edema and trace bilateral pleura l effusions. Bibasilar airspace disease likely represents atelectasis. Diffuse osteoblastic metastasi s.
[2019-08-27] MEDS ORDERED: FUROSEMIDE 10 MG/ML 4 ML VIAL IV STA (12:59)
[2019-08-27 13:09] LABS: Appearance,Urine Clear (Clear); Bilirubin,Urine Negative (Negative); Blood,Urine Negative (Negative); Color,Urine Light Yellow; Glucose,Urine (UA) 2+ (Negative); Ketones,Urine Negative (Negative); Leukocyte Esterase,Urine Negative (Negative); Nitrite,Urine Negative (Negative); PH, Urine 6.5 (5.0-8.0); Protein,Urine Trace (Negative); Specific Gravity,Urine 1.012 (1.001-1.035); Urobilinogen,Urine <2.0 mg/dL (<2.0)
--- NOTE | 2019-08-27 13:09 | ED ---
Medical Decision Making - Medical Decision Making EKG performed at 1058: EKG shows normal sinus rhythm at 93 bpm. MA interval 172. QRS 86 QT/QTC 358/445. No acute ST change. - Lab Data Result diagrams: 08/27/19 11:45 08/27/19 11:45 Lab Results 08/27/19 08/27/19 08/27/19 Range/Units 11:45 11:45 11:45 WBC 7.6 (3.8-10.6) k/uL RBC 4.32 (3.80-5.40) m/uL Hgb 11.3 L (11.4-16.0) gm/dL Hct 36.7 (34.0-46.0) % MCV 84.8 (80.0-100.0) fL MCH 26.2 (25.0-35.0) pg MCHC 30.9 L (31.0-37.0) g/dL RDW 18.3 H (11.5-15.5) % Plt Count 417 (150-450) k/uL Neutrophils % 78 % Lymphocytes % 11 % Monocytes % 5 % Eosinophils % 4 % Basophils % 1 % Neutrophils # 5.9 (1.3-7.7) k/uL Lymphocytes # 0.8 L (1.0-4.8) k/uL Monocytes # 0.4 (0-1.0) k/uL Eosinophils # 0.3 (0-0.7) k/uL Basophils # 0.1 (0-0.2) k/uL Hypochromasia Marked Anisocytosis Slight PT (9.0-12.0) sec INR (<1.2) APTT (22.0-30.0) sec Sodium 139 (137-145) mmol/L Potassium 4.4 (3.5-5.1) mmol/L Chloride 101 (98-107) mmol/L Carbon Dioxide 28 (22-30) mmol/L Anion Gap 10 mmol/L BUN 18 H (7-17) mg/dL Creatinine 0.89 (0.52-1.04) mg/dL Est GFR (CKD-EPI)AfAm 77 (>60 ml/min/1.73 sqM) Est GFR (CKD-EPI)NonAf 66 (>60 ml/min/1.73 sqM) Glucose 246 H (74-99) mg/dL Plasma Lactic Acid Jaswant 1.5 (0.7-2.0) mmol/L Calcium 9.5 (8.4-10.2) mg/dL Total Bilirubin 0.5 (0.2-1.3) mg/dL AST 31 (14-36) U/L ALT 11 (4-34) U/L Alkaline Phosphatase 137 H (38-126) U/L Troponin I (0.000-0.034) ng/mL NT-Pro-B Natriuret Pep pg/mL Total Protein 7.4 (6.3-8.2) g/dL Albumin 3.8 (3.5-5.0) g/dL 08/27/19 08/27/19 08/27/19 Range/Units 11:45 11:45 11:45 WBC (3.8-10.6) k/uL RBC (3.80-5.40) m/uL Hgb (11.4-16.0) gm/dL Hct (34.0-46.0) % MCV (80.0-100.0) fL MCH (25.0-35.0) pg MCHC (31.0-37.0) g/dL RDW (11.5-15.5) % Plt Count (150-450) k/uL Neutrophils % % Lymphocytes % % Monocytes % % Eosinophils % % Basophils % % Neutrophils # (1.3-7.7) k/uL Lymphocytes # (1.0-4.8) k/uL Monocytes # (0-1.0) k/uL Eosinophils # (0-0.7) k/uL Basophils # (0-0.2) k/uL Hypochromasia Anisocytosis PT 10.3 (9.0-12.0) sec INR 1.0 (<1.2) APTT 24.1 (22.0-30.0) sec Sodium (137-145) mmol/L Potassium (3.5-5.1) mmol/L Chloride (98-107) mmol/L Carbon Dioxide (22-30) mmol/L Anion Gap mmol/L BUN (7-17) mg/dL Creatinine (0.52-1.04) mg/dL Est GFR (CKD-EPI)AfAm (>60 ml/min/1.73 sqM) Est GFR (CKD-EPI)NonAf (>60 ml/min/1.73 sqM) Glucose (74-99) mg/dL Plasma Lactic Acid Jaswant (0.7-2.0) mmol/L Calcium (8.4-10.2) mg/dL Total Bilirubin (0.2-1.3) mg/dL AST (14-36) U/L ALT (4-34) U/L Alkaline Phosphatase (38-126) U/L Troponin I <0.012 (0.000-0.034) ng/mL NT-Pro-B Natriuret Pep 1090 pg/mL Total Protein (6.3-8.2) g/dL Albumin (3.5-5.0) g/dL Disposition Clinical Impression: CHF exacerbation, Hypoxia Disposition: ADMITTED IP TO THIS HOSP Condition: Stable Is patient prescribed a controlled substance at d/c from ED?: No Referrals: Keagan Alfaro DO [Primary Care Provider] - 1-2 days
[2019-08-27 16:52] LABS: Glucose,Whole Blood 167 mg/dL (75-99)
[2019-08-27] MEDS: INSULIN ASPART (NovoLOG) 100 UNIT/ML VIAL SQ SCH ×2 (17:36→20:20)
[2019-08-27] MEDS ORDERED: PANTOPRAZOLE 40 MG TABLET PO PRN (17:50)
[2019-08-27] MEDS ORDERED: metFORMIN 500 MG TAB PO SCH (18:00)
[2019-08-27] MEDS: traMADol 50 MG TAB PO PRN ×2 (18:33→23:50)
[2019-08-27] MEDS: GABAPENTIN 400 MG CAP PO SCH ×2 (18:33→21:12)
[2019-08-27 20:21] LABS: Glucose,Whole Blood 166 mg/dL (75-99)
[2019-08-27] MEDS ORDERED: FUROSEMIDE 10 MG/ML 4 ML VIAL IV SCH (21:00)
[2019-08-27] MEDS: MUPIROCIN 2% OINT 22 GM TUBE TOPICAL SCH (21:12)
--- NOTE | 2019-08-27 22:29 | P.HPIM ---
History of Present Illness H&P Date: 08/27/19 Chief Complaint: Shortness of breath Patient is a 69-year-old female with a known history of recently diagnosed breast cancer with bone metastasis currently on hormonal therapy presents to ER with the complaints of leg swelling and increased short of breath for the past 2 weeks. Patient was seen at her oncologist office today for injections and was found to have low oxygenation. Patient was advised to go to ER. Denied any history of prior coronary artery disease or congestive heart failure. Patient does have worsening exertional short of breath. Denied any chest pain. No fever no chills. No cough or sputum production. No nausea vomiting abdominal pain or diarrhea. No headache or dizziness or lightheadedness. EKG performed at 1058: EKG shows normal sinus rhythm at 93 bpm. [place] interval 172. QRS 86 QT/QTC 358/445. No acute ST change. BNP 1090 Chest x-ray showed new fluid overload with to moderate interstitial pulmonary edema and trace bilateral pleural effusions. Bibasilar airspace disease likely represent atelectasis WBC 7.6, hemoglobin 13.2 Troponin 2 negative Blood sugar 246 Review of Systems Constitutional: Patient denies any fever or chills . No generalized weakness or weight loss. Abdomen: Patient denied nausea vomiting and diarrhea and abdominal pain. Cardiovascular: Patient denies any chest pain or short of breath no palpitations. Respiratory: patient denied any cough is from production. No shortness of breath Neurologic: Patient denied any numbness or tingling headache. Musculoskeletal: Patient denies any complaints of joint swelling or deformity. Skin: Negative Psychiatric: Negative Endocrine: No heat or cold intolerance. No recent weight gain. Genitourinary: No dysuria or hematuria. All other 14 point ROS negative except the above Past Medical History Past Medical History: Cancer, Diabetes Mellitus, GERD/Reflux, Hypertension, Thyroid Disorder Additional Past Medical History / Comment(s): recent breast cancer diagnosis. Bone metastasis mar 2019 states dx shingles, and has vision left eye issues History of Any Multi-Drug Resistant Organisms: None Reported Past Surgical History: No Surgical Hx Reported Additional Past Surgical History / Comment(s): PORT INSERTION. Past Anesthesia/Blood Transfusion Reactions: No Reported Reaction Additional Past Anesthesia/Blood Transfusion Reaction / Comment(s): no previous anesthesia Past Psychological History: No Psychological Hx Reported Smoking Status: Former smoker Past Alcohol Use History: None Reported Past Drug Use History: None Reported - Past Family History Mother Family Medical History: Blood Disorder Additional Family Medical History / Comment(s): blood clots Sister(s) Family Medical History: Blood Disorder Additional Family Medical History / Comment(s): blood clots Daughter(s) Family Medical History: Blood Disorder Additional Family Medical History / Comment(s): blood clots Medications and Allergies Home Medications Medication Instructions Recorded Confirmed Type Atenolol [Tenormin] 25 mg PO DAILY 09/16/14 08/27/19 History Enalapril Maleate 10 mg PO DAILY 09/16/14 08/27/19 History Insulin Lispro [humaLOG Kwikpen] See Protocol SQ AC-TID 09/16/14 08/27/19 History Levothyroxine Sodium [Synthroid] 125 mcg PO DAILY 09/16/14 08/27/19 History metFORMIN HCL 1,000 mg PO AC-BID 09/16/14 08/27/19 History Omeprazole [PriLOSEC] 20 mg PO DAILY PRN 06/19/17 08/27/19 History traMADol HCL [Ultram] 100 mg PO Q6H PRN 06/19/17 08/27/19 History Gabapentin [Neurontin] 400 mg PO QID 08/27/19 08/27/19 History Mometasone Furoate [Elocon 1 applic TOPICAL DAILY 08/27/19 08/27/19 History Ointment] Mupirocin Calcium 2% Cream 1 applic TOPICAL TID 08/27/19 08/27/19 History [Bactroban 2% Cream] Nystatin 100,000Unit/gm Cream 1 applic TOPICAL DAILY 08/27/19 08/27/19 History [Mycostatin Cream] glipiZIDE [Glucotrol] 10 mg PO AC-BID 08/27/19 08/27/19 History Allergies Allergy/AdvReac Type Severity Reaction Status Date / Time anastrozole Allergy Unknown Verified 08/27/19 11:25 ciprofloxacin [From Cipro] Allergy Unknown Verified 08/27/19 11:25 ibuprofen Allergy Swelling Verified 08/27/19 11:25 Iodinated Contrast Media Allergy Rash/Hives Verified 08/27/19 11:25 [Iodinated Contrast Media - IV Dye] Physical Exam Vitals: Vital Signs Temp Pulse Resp BP Pulse Ox 08/27/19 15:13 97.8 F 81 18 156/78 97 08/27/19 14:00 87 18 157/67 97 08/27/19 12:30 87 18 177/79 95 08/27/19 12:04 22 08/27/19 10:39 98.1 F 92 18 168/84 90 L Intake and Output 08/27/19 08/27/19 08/27/19 06:59 14:59 22:59 Other: # Voids 2 # Bowel Movements 0 Weight 111.13 kg PHYSICAL EXAMINATION: Patient is lying in the bed comfortably, no acute distress, awake alert and oriented. Morbid obese. HEENT: Normocephalic. Neck is supple. Pupils reactive. Nostrils clear. Oral cavity is moist. Ears reveal no drainage. Neck reveals no JVD, carotid bruits, or thyromegaly. CHEST EXAMINATION: Trachea is central. Symmetrical expansion. Bibasilar diminished air entry. Lung mojica clear to auscultation and percussion. CARDIAC: Normal S1, S2 with no gallops. No murmurs ABDOMEN: Soft. Bowel sounds normal. No organomegaly. No abdominal bruits. Extremities: Bilateral 2+ pedal edema. No clubbing or cyanosis Neurologically awake, alert, oriented x3 with well-coordinated movements. No focal deficits noted Skin: No rash or skin lesions. Psychiatric: Coperative. Nonsuicidal Musculoskeletal: No joint swelling or deformity. Normal range of motion. Results CBC & Chem 7: 08/27/19 11:45 08/27/19 11:45 Labs: Abnormal Lab Results - Last 24 Hours (Table) 08/27/19 08/27/19 08/27/19 Range/Units 11:45 11:45 12:45 Hgb 11.3 L (11.4-16.0) gm/dL MCHC 30.9 L (31.0-37.0) g/dL RDW 18.3 H (11.5-15.5) % Lymphocytes # 0.8 L (1.0-4.8) k/uL BUN 18 H (7-17) mg/dL Glucose 246 H (74-99) mg/dL POC Glucose (mg/dL) (75-99) mg/dL Alkaline Phosphatase 137 H (38-126) U/L Urine Protein Trace H (Negative) Urine Glucose (UA) 2+ H (Negative) 08/27/19 Range/Units 16:38 Hgb (11.4-16.0) gm/dL MCHC (31.0-37.0) g/dL RDW (11.5-15.5) % Lymphocytes # (1.0-4.8) k/uL BUN (7-17) mg/dL Glucose (74-99) mg/dL POC Glucose (mg/dL) 167 H (75-99) mg/dL Alkaline Phosphatase (38-126) U/L Urine Protein (Negative) Urine Glucose (UA) (Negative) Thrombosis Risk Factor Assmnt - DVT/VTE Prophylaxis DVT/VTE Prophylaxis: Pharmacologic Prophylaxis ordered Assessment and Plan Assessment: Shortness of breath secondary to acute CHF. Ejection fraction unknown. Acute hypoxic respiratory failure secondary to above Recently diagnosed breast cancer with bony metastasis. Currently on follow with oncology. Previous history of smoking Hypertension Diabetes type 2 Hypothyroidism GERD DVT prophylaxis with heparin subcu Morbid obesity with BMI 46.3 Plan: Patient will be continued on IV Lasix twice daily 40 mg, continue with aspirin. Continue with insulin sliding scale and blood sugar control. Continue with the home medications and cardiology was consulted. Further recommendations based on the clinical course. Monitor renal function. Prognosis is guarded with multiple medical problems and metastatic cancer. Time with Patient: Greater than 30
[2019-08-27] MEDS: FUROSEMIDE 10 MG/ML 4 ML VIAL IV SCH (22:47)
[2019-08-27] MEDS: HEPARIN SODIUM,PORCINE 5,000 UNIT/ML 1 ML VIAL SQ SCH (23:49)
[2019-08-28 06:24] LABS: Glucose,Whole Blood 153 mg/dL (75-99)
[2019-08-28] MEDS: LEVOTHYROXINE 125 MCG TAB PO SCH (06:38)
[2019-08-28] MEDS: glipiZIDE 10 MG TAB PO SCH ×2 (06:38→17:23)
[2019-08-28] MEDS: INSULIN ASPART (NovoLOG) 100 UNIT/ML VIAL SQ SCH ×4 (06:38→21:01)
[2019-08-28] MEDS: traMADol 50 MG TAB PO PRN ×4 (06:41→21:00)
[2019-08-28 06:47] LABS: Anisocytosis Slight; Basophils # (A) 0.1 k/uL (0-0.2); Basophils % (A) 1 %; Eosinophils # (A) 0.4 k/uL (0-0.7); Eosinophils % (A) 5 %; HCT 33.3 % (34.0-46.0); HGB 10.2 gm/dL (11.4-16.0); Hypochromasia Marked; Lymphocytes # (A) 1.1 k/uL (1.0-4.8); Lymphocytes % (A) 15 %; MCH 25.9 pg (25.0-35.0); MCHC 30.8 g/dL (31.0-37.0); MCV 84.3 fL (80.0-100.0); Monocytes # (A) 0.5 k/uL (0-1.0); Monocytes % (A) 7 %; Neutrophils # (A) 4.8 k/uL (1.3-7.7); Neutrophils % (A) 69 %; Platelet Count 385 k/uL (150-450); RBC 3.95 m/uL (3.80-5.40); RDW 18.4 % (11.5-15.5)
[2019-08-28 07:00] LABS: Potassium 4.2 mmol/L (3.5-5.1)
[2019-08-28 07:01] LABS: Calcium 9.4 mg/dL (8.4-10.2)
[2019-08-28] MEDS: ATENOLOL 25 MG TAB PO SCH (08:18)
[2019-08-28] MEDS: NYSTATIN 100,000UNIT/GM CREAM 30 GM TUBE TOPICAL SCH (08:18)
[2019-08-28] MEDS: ASPIRIN 81 MG PO SCH (08:18)
[2019-08-28] MEDS: GABAPENTIN 400 MG CAP PO SCH ×4 (08:18→20:59)
[2019-08-28] MEDS: HEPARIN SODIUM,PORCINE 5,000 UNIT/ML 1 ML VIAL SQ SCH ×3 (08:18→21:00)
[2019-08-28] MEDS: FUROSEMIDE 10 MG/ML 4 ML VIAL IV SCH ×3 (08:18→20:59)
[2019-08-28] MEDS: LISINOPRIL 20 MG TAB PO SCH (08:18)
[2019-08-28] MEDS: MUPIROCIN 2% OINT 22 GM TUBE TOPICAL SCH ×3 (08:19→20:59)
[2019-08-28] MEDS: TRIAMCINOLONE ACET 0.1% OINTMENT 15 GM TUBE TOPICAL SCH (08:19)
[2019-08-28] MEDS ORDERED: PNEUMOCOCCAL VACC-PNEUMOVAX 23 25 MCG/0.5 ML VIAL IM ONE (09:00)
--- NOTE | 2019-08-28 10:22 | P.CRDCN ---
History of Present Illness Consult date: 08/28/19 History of present illness: This is a 69-year-old female with history of hypertension, insulin-dependent diabetes mellitus and metastatic breast cancer who was seen in the outpatient clinic and was noted to be hypoxic and having some difficulty with breathing. Patient was admitted to the hospital through the emergency room for about complaints. Patient has been having shortness of breath for the last 2 weeks. She was having some orthopnea and also noticed increased swelling of the feet. Patient was recently started on a new medication for her metastatic cancer by oncologist. Apparently it was a 300 mg dose and after that patient did not feel well and the dose apparently was cut back to 150 mg. Patient doesn't have any significant past cardiac medical history. She did smoke for many years but quit several years ago. Used to smoke up to 2 packs a day. No history of any previous myocardial infarctions. Her EKGs did not reveal any acute changes and her troponin values within normal limits. Pro BNP is mildly elevated. Chest x- ray didn't show evidence of some CHF and she had some pedal edema. Patient was treated with IV Lasix with improvement of her symptoms. Her echocardiogram showed normal LV function with mild aortic stenosis. It appears that patient might have had diastolic congestive heart failure. The etiology is not entirely clear. Rule out the new medication also to be considered. At this point we'll continue our current medical therapy. Increase activity as tolerated. Given her risk factors, patient may need further evaluation to rule out underlying ischemic heart disease. Review of Systems As per the chart Past Medical History Past Medical History: Cancer, Diabetes Mellitus, GERD/Reflux, Hypertension, Thyroid Disorder Additional Past Medical History / Comment(s): recent breast cancer diagnosis. Bone metastasis mar 2019 states dx shingles, and has vision left eye issues History of Any Multi-Drug Resistant Organisms: None Reported Past Surgical History: No Surgical Hx Reported Additional Past Surgical History / Comment(s): PORT INSERTION. Past Anesthesia/Blood Transfusion Reactions: No Reported Reaction Additional Past Anesthesia/Blood Transfusion Reaction / Comment(s): no previous anesthesia Past Psychological History: No Psychological Hx Reported Smoking Status: Former smoker Past Alcohol Use History: None Reported Past Drug Use History: None Reported - Past Family History Mother Family Medical History: Blood Disorder Additional Family Medical History / Comment(s): blood clots Sister(s) Family Medical History: Blood Disorder Additional Family Medical History / Comment(s): blood clots Daughter(s) Family Medical History: Blood Disorder Additional Family Medical History / Comment(s): blood clots Medications and Allergies Home Medications Medication Instructions Recorded Confirmed Type Atenolol [Tenormin] 25 mg PO DAILY 09/16/14 08/27/19 History Enalapril Maleate 10 mg PO DAILY 09/16/14 08/27/19 History Insulin Lispro [humaLOG Kwikpen] See Protocol SQ AC-TID 09/16/14 08/27/19 History Levothyroxine Sodium [Synthroid] 125 mcg PO DAILY 09/16/14 08/27/19 History metFORMIN HCL 1,000 mg PO AC-BID 09/16/14 08/27/19 History Omeprazole [PriLOSEC] 20 mg PO DAILY PRN 06/19/17 08/27/19 History traMADol HCL [Ultram] 100 mg PO Q6H PRN 06/19/17 08/27/19 History Gabapentin [Neurontin] 400 mg PO QID 08/27/19 08/27/19 History Mometasone Furoate [Elocon 1 applic TOPICAL DAILY 08/27/19 08/27/19 History Ointment] Mupirocin Calcium 2% Cream 1 applic TOPICAL TID 08/27/19 08/27/19 History [Bactroban 2% Cream] Nystatin 100,000Unit/gm Cream 1 applic TOPICAL DAILY 08/27/19 08/27/19 History [Mycostatin Cream] glipiZIDE [Glucotrol] 10 mg PO AC-BID 08/27/19 08/27/19 History Allergies Allergy/AdvReac Type Severity Reaction Status Date / Time anastrozole Allergy Unknown Verified 08/27/19 11:25 ciprofloxacin [From Cipro] Allergy Unknown Verified 08/27/19 11:25 ibuprofen Allergy Swelling Verified 08/27/19 11:25 Iodinated Contrast Media Allergy Rash/Hives Verified 08/27/19 11:25 [Iodinated Contrast Media - IV Dye] Physical Exam Vitals: Vital Signs Temp Pulse Pulse Resp BP BP Pulse Ox 08/28/19 08:00 97.8 F 81 16 107/63 96 08/28/19 04:00 97.6 F 83 18 135/62 100 08/28/19 00:00 79 18 08/27/19 23:46 97.5 F L 79 18 139/62 98 08/27/19 19:58 86 18 08/27/19 19:54 98 F 86 18 185/79 95 08/27/19 15:30 97.4 F L 82 133/59 94 L 08/27/19 15:13 97.8 F 81 18 156/78 97 08/27/19 14:00 87 18 157/67 97 08/27/19 12:30 87 18 177/79 95 08/27/19 12:04 22 08/27/19 10:39 98.1 F 92 18 168/84 90 L Intake and Output 08/27/19 08/28/19 08/28/19 22:59 06:59 14:59 Intake Total 240 230 Output Total 300 550 Balance -60 -550 230 Intake: Oral 240 230 Output: Urine 300 550 Other: # Voids 2 1 # Bowel Movements 0 Weight 111.13 kg 107.9 kg GENERAL EXAM: Patient is alert and oriented and doesn't appear to be in any acu te distress HEENT: Normocephalic. Normal reaction of pupils, equal size, normal range of extraocular motion. No erythema or exudates in the throat. NECK: No masses, no nuchal rigidity. CHEST: No chest wall deformity. LUNGS: Equal air entry with no crackles or wheeze. HEART: S1 and S2 normal with no audible mumurs or gallops. Regular rhythm, femorals equal on both sides.. ABDOMEN: No hepatosplenomegaly, normal bowel sounds, no guarding or rigidity. SKIN: No rashes CENTRAL NERVOUS SYSTEM: No focal deficits. EXTREMITIES: Resolving edema Results 08/28/19 05:45 08/28/19 05:45 Cardiac Enzymes 08/27/19 08/27/19 Range/Units 11:45 11:45 AST 31 (14-36) U/L Troponin I <0.012 (0.000-0.034) ng/mL Coagulation 08/27/19 Range/Units 11:45 PT 10.3 (9.0-12.0) sec APTT 24.1 (22.0-30.0) sec CBC 08/27/19 08/28/19 Range/Units 11:45 05:45 WBC 7.6 7.0 (3.8-10.6) k/uL RBC 4.32 3.95 (3.80-5.40) m/uL Hgb 11.3 L 10.2 L (11.4-16.0) gm/dL Hct 36.7 33.3 L (34.0-46.0) % Plt Count 417 385 (150-450) k/uL Comprehensive Metabolic Panel 08/27/19 08/28/19 Range/Units 11:45 05:45 Sodium 139 137 (137-145) mmol/L Potassium 4.4 4.2 (3.5-5.1) mmol/L Chloride 101 98 (98-107) mmol/L Carbon Dioxide 28 28 (22-30) mmol/L BUN 18 H 20 H (7-17) mg/dL Creatinine 0.89 0.93 (0.52-1.04) mg/dL Glucose 246 H 149 H (74-99) mg/dL Calcium 9.5 9.4 (8.4-10.2) mg/dL AST 31 (14-36) U/L ALT 11 (4-34) U/L Alkaline Phosphatase 137 H (38-126) U/L Total Protein 7.4 (6.3-8.2) g/dL Albumin 3.8 (3.5-5.0) g/dL Current Medications Generic Name Dose Route Start Last Admin Trade Name Freq PRN Reason Stop Dose Admin Aspirin 81 mg 08/28/19 09:00 08/28/19 08:18 Aspirin PO 81 mg DAILY BENNY Administration Atenolol 25 mg 08/28/19 09:00 08/28/19 08:18 Tenormin PO 25 mg DAILY BENNY Administration Furosemide 40 mg 08/28/19 00:00 08/28/19 08:18 Lasix IV 40 mg Q8HR BENNY Administration Gabapentin 400 mg 08/27/19 18:00 08/28/19 08:18 Neurontin PO 400 mg QID BENNY Administration Glipizide 10 mg 08/28/19 07:30 08/28/19 06:38 Glucotrol PO 10 mg AC-BID BENNY Administration Heparin Sodium (Porcine) 5,000 unit 08/28/19 00:00 08/28/19 08:18 Heparin SQ 5,000 unit Q8HR BENNY Administration Insulin Aspart 0 unit 08/27/19 17:30 08/28/19 06:38 Novolog SQ 2 unit ACHS BENNY Administration Protocol Levothyroxine Sodium 125 mcg 08/28/19 06:30 08/28/19 06:38 Synthroid PO 125 mcg 0630 BENNY Administration Lisinopril 20 mg 08/28/19 09:00 08/28/19 08:18 Zestril PO 20 mg DAILY BENNY Administration Mupirocin 1 applic 08/27/19 22:00 08/28/19 08:19 Bactroban Oint TOPICAL 1 applic TID BENNY Administration Nystatin 1 applic 08/28/19 09:00 08/28/19 08:18 Mycostatin Cream TOPICAL 1 applic DAILY BENNY Administration Pantoprazole Sodium 40 mg 08/27/19 17:50 Protonix PO DAILY PRN acid reflux Tramadol HCl 100 mg 08/27/19 17:50 08/28/19 06:41 Ultram PO 100 mg Q6H PRN Administration Pain Triamcinolone Acetonide 1 applic 08/28/19 09:00 08/28/19 08:19 Kenalog TOPICAL 1 applic DAILY BENNY Administration Intake and Output 08/27/19 08/28/19 08/28/19 22:59 06:59 14:59 Intake Total 240 230 Output Total 300 550 Balance -60 -550 230 Intake: Oral 240 230 Output: Urine 300 550 Other: # Voids 2 1 # Bowel Movements 0 Weight 111.13 kg 107.9 kg 08/28/19 05:45 08/28/19 05:45 EKG Interpretations (text) Not available Assessment and Plan (1) Acute diastolic CHF (congestive heart failure) Current Visit: Yes Status: Acute Code(s): I50.31 - ACUTE DIASTOLIC (SHASTA ESTIVE) HEART FAILURE SNOMED Code(s): 399713989 (2) Mild aortic stenosis Current Visit: Yes Status: Acute Code(s): I35.0 - NONRHEUMATIC AORTIC (VALVE) STENOSIS SNOMED Code(s): 77698286 (3) Hypertension, essential Current Visit: Yes Status: Acute Code(s): I10 - ESSENTIAL (PRIMARY) HYPERTENSION SNOMED Code(s): 11581573 (4) Insulin dependent diabetes mellitus Current Visit: Yes Status: Acute Code(s): ASC3641 - SNOMED Code(s): 59617745 (5) History of smoking Current Visit: Yes Status: Acute Code(s): Z87.891 - PERSONAL HISTORY OF NICOTINE DEPENDENCE SNOMED Code(s): 974663612 Plan: Continue with IV diuretics. May switch to by mouth diuretics by his this evening. Continue rest of the medications. Mistake with oncologist regarding the new medication. May need further evaluation to rule out underlying ischemic heart disease which could be done as an outpatient.
--- NOTE | 2019-08-28 10:53 | XR ---
EXAMINATION TYPE: XR chest 1V portable DATE OF EXAM: 08/28/2019 COMPARISON: Prior chest x-ray 08/27/2019 HISTORY: Congestive heart failure, abnormal chest x-ray TECHNIQUE: Single frontal view of the chest is obtained. FINDINGS: Diffuse lung and osseous metastatic disease is again noted. Heart size is stable. Port-A-C ath unchanged. No evident pneumothorax. Difficult to exclude small effusions, basilar atelectasis. Weaver spect improvement in the interstitium. IMPRESSION: Metastatic disease. Suspect improvement in patient's volume status.
[2019-08-28 11:51] LABS: Glucose,Whole Blood 133 mg/dL (75-99)
--- NOTE | 2019-08-28 12:43 | P.CONS ---
History of Present Illness - Reason for Consult Consult date: 08/28/19 Ovarian Requesting physician: Hugh Renner - Chief Complaint VANDANA, activity intolerance - History of Present Illness Mrs. Cervantes is a very pleasant 69-year-old female Dr. Felipe with a history of grade II infiltrating ductal carcinoma, ER/ER positive and Srn6ovt +, with bone and lung mets diagnosed in 2014. Patient was treated for the same, has been on multiple conbinations of hormone and Her2 therapies over the years, she has had XRT. 06/02 she unfortunately had disease progression in he lungs. She was started on piqray in Jun 2019, with continuation of xgeva and faslodex. She did require adjustment of diabetic meds (hyperglycemia is known side effect of piqray), ultimately she required dose adjustment of piqray due to grade 4 hyperglycemia, grade 3 fatigue. She did better on the decreased dose. Patient had noted increasing shortness of breath and activity intolerance of the last couple of weeks. This became so severe that she came to the hospital for evaluation. Patient stopped her piqray on 08/21, her symptoms did not improve after discontinuation. Patient does have a mild rash, suspect piqray is also responsible. Since admission patient has been given diuretics, her breathing is improved, her legs are still swollen but less, she is process of Cardiology workup for CHF. Pt has no history fo the same. Patient has no other complaints on a 14 point review of systems Review of Systems 14 point review of systems is negative except as stated in HPI Past Medical History Past Medical History: Cancer, Diabetes Mellitus, GERD/Reflux, Hypertension, Thyroid Disorder Additional Past Medical History / Comment(s): recent breast cancer diagnosis. Bone metastasis mar 2019 states dx shingles, and has vision left eye issues History of Any Multi-Drug Resistant Organisms: None Reported Past Surgical History: No Surgical Hx Reported Additional Past Surgical History / Comment(s): PORT INSERTION. cardiac catheterization Past Anesthesia/Blood Transfusion Reactions: No Reported Reaction Additional Past Anesthesia/Blood Transfusion Reaction / Comm: no previous anesthesia Past Psychological History: No Psychological Hx Reported Smoking Status: Former smoker Past Alcohol Use History: None Reported Past Drug Use History: None Reported - Past Family History Mother Family Medical History: Blood Disorder Additional Family Medical History / Comment(s): blood clots Sister(s) Family Medical History: Blood Disorder Additional Family Medical History / Comment(s): blood clots Daughter(s) Family Medical History: Blood Disorder Additional Family Medical History / Comment(s): blood clots Medications and Allergies Home Medications Medication Instructions Recorded Confirmed Type Atenolol [Tenormin] 25 mg PO DAILY 09/16/14 08/27/19 History Enalapril Maleate 10 mg PO DAILY 09/16/14 08/27/19 History Insulin Lispro [humaLOG Kwikpen] See Protocol SQ AC-TID 09/16/14 08/27/19 History Levothyroxine Sodium [Synthroid] 125 mcg PO DAILY 09/16/14 08/27/19 History metFORMIN HCL 1,000 mg PO AC-BID 09/16/14 08/27/19 History Omeprazole [PriLOSEC] 20 mg PO DAILY PRN 06/19/17 08/27/19 History traMADol HCL [Ultram] 100 mg PO Q6H PRN 06/19/17 08/27/19 History Gabapentin [Neurontin] 400 mg PO QID 08/27/19 08/27/19 History Mometasone Furoate [Elocon 1 applic TOPICAL DAILY 08/27/19 08/27/19 History Ointment] Mupirocin Calcium 2% Cream 1 applic TOPICAL TID 08/27/19 08/27/19 History [Bactroban 2% Cream] Nystatin 100,000Unit/gm Cream 1 applic TOPICAL DAILY 08/27/19 08/27/19 History [Mycostatin Cream] glipiZIDE [Glucotrol] 10 mg PO AC-BID 08/27/19 08/27/19 History Allergies Allergy/AdvReac Type Severity Reaction Status Date / Time anastrozole Allergy Unknown Verified 08/27/19 11:25 ciprofloxacin [From Cipro] Allergy Unknown Verified 08/27/19 11:25 ibuprofen Allergy Swelling Verified 08/27/19 11:25 Iodinated Contrast Media Allergy Rash/Hives Verified 08/27/19 11:25 [Iodinated Contrast Media - IV Dye] Physical Exam Vitals: Vital Signs Temp Pulse Pulse Resp BP BP Pulse Ox 08/28/19 11:14 97.7 F 64 16 115/69 94 L 08/28/19 08:00 97.8 F 81 16 107/63 96 08/28/19 04:00 97.6 F 83 18 135/62 100 08/28/19 00:00 79 18 08/27/19 23:46 97.5 F L 79 18 139/62 98 08/27/19 19:58 86 18 08/27/19 19:54 98 F 86 18 185/79 95 08/27/19 15:30 97.4 F L 82 133/59 94 L 08/27/19 15:13 97.8 F 81 18 156/78 97 08/27/19 14:00 87 18 157/67 97 08/27/19 12:30 87 18 177/79 95 Intake and Output 08/27/19 08/28/19 08/28/19 22:59 06:59 14:59 Intake Total 240 230 Output Total 300 550 Balance -60 -550 230 Intake: Oral 240 230 Output: Urine 300 550 Other: # Voids 2 1 # Bowel Movements 0 Weight 111.13 kg 107.9 kg 107.9 kg - Constitutional General appearance: cooperative, morbidly obese, no acute distress - EENT Eyes: anicteric sclerae, EOMI ENT: hearing grossly normal, normal oropharynx - Neck Neck: no lymphadenopathy - Respiratory Respiratory: bilateral: CTA - Cardiovascular Heart sounds: normal: S1, S2 Abnormal Heart Sounds: systolic murmur (greatest at left sternal border, third intercostal space, grade 1) leg Peripheral Edema: bilateral: 2+ - Gastrointestinal General gastrointestinal: no absent bowel sounds, no decreased bowel sounds, no distended, no hepatomegaly, no hyperactive bowel sounds, normal bowel sounds, no organomegaly, no rigid, no scaphoid, soft, no splenomegaly, no tenderness, no umbilical hernia, no ventral hernia - Integumentary Integumentary: pale - Neurologic Neurologic: CNII-XII intact - Musculoskeletal Musculoskeletal: generalized weakness, strength equal bilaterally - Psychiatric Psychiatric: A&O x's 3, appropriate affect, intact judgment & insight Results CBC & Chem 7: 08/28/19 05:45 08/28/19 05:45 Labs: Abnormal Lab Results - Last 24 Hours (Table) 08/27/19 08/27/19 08/27/19 Range/Units 11:45 12:45 16:38 Hgb 11.3 L (11.4-16.0) gm/dL Hct (34.0-46.0) % MCHC 30.9 L (31.0-37.0) g/dL RDW 18.3 H (11.5-15.5) % Lymphocytes # 0.8 L (1.0-4.8) k/uL D-Dimer (<0.60) mg/L FEU BUN (7-17) mg/dL Glucose (74-99) mg/dL POC Glucose (mg/dL) 167 H (75-99) mg/dL Urine Protein Trace H (Negative) Urine Glucose (UA) 2+ H (Negative) 08/27/19 08/28/19 08/28/19 Range/Units 20:16 05:45 05:45 Hgb 10.2 L (11.4-16.0) gm/dL Hct 33.3 L (34.0-46.0) % MCHC 30.8 L (31.0-37.0) g/dL RDW 18.4 H (11.5-15.5) % Lymphocytes # (1.0-4.8) k/uL D-Dimer (<0.60) mg/L FEU BUN 20 H (7-17) mg/dL Glucose 149 H (74-99) mg/dL POC Glucose (mg/dL) 166 H (75-99) mg/dL Urine Protein (Negative) Urine Glucose (UA) (Negative) 08/28/19 08/28/19 08/28/19 Range/Units 06:16 11:10 11:40 Hgb (11.4-16.0) gm/dL Hct (34.0-46.0) % MCHC (31.0-37.0) g/dL RDW (11.5-15.5) % Lymphocytes # (1.0-4.8) k/uL D-Dimer 2.41 H (<0.60) mg/L FEU BUN (7-17) mg/dL Glucose (74-99) mg/dL POC Glucose (mg/dL) 153 H 133 H (75-99) mg/dL Urine Protein (Negative) Urine Glucose (UA) (Negative) Chest x-ray: report reviewed Assessment and Plan (1) CHF exacerbation Narrative/Plan: Patient being worked up and treated for the same. Patient has no history of but, her presentation and symptoms are clinically consistent with the same. Defer to Cardiology Current Visit: Yes Status: Acute Priority: High Code(s): I50.9 - HEART FAILURE, UNSPECIFIED SNOMED Code(s): 614059367 (2) Metastatic breast cancer Narrative/Plan: Patient has been on the drug for just a little over a month with dose adjustments to tolerance. Patient will resume once cardiac status has been optimized with treatment. Piqray literature reviewed, no reports of cardiotoxicity. She had no improvement in her symptoms after holding piqray last week. Less likely drug reaction. Her symptoms are improving with treatment. Patient will hold until she has completed her cardiology workup and been treated for congestive heart failure. follow-up with Dr. Felipe already scheduled Current Visit: No Status: Chronic Priority: Medium Code(s): C50.919 - MALIGNANT NEOPLASM OF UNSP SITE OF UNSPECIFIED FEMALE BREAST SNOMED Code(s): 149678535
[2019-08-28 15:39] LABS: Hemoglobin A1C 10.6 % (4.0-6.0)
[2019-08-28 17:03] LABS: Glucose,Whole Blood 147 mg/dL (75-99)
[2019-08-28 20:21] LABS: Glucose,Whole Blood 135 mg/dL (75-99)
--- NOTE | 2019-08-28 21:50 | P.PN ---
Subjective Progress Note Date: 08/28/19 Principal diagnosis: Acute CHF with diastolic dysfunction Patient is a 69-year-old female with a known history of recently diagnosed breast cancer with bone metastasis currently on hormonal therapy presents to ER with the complaints of leg swelling and increased short of breath for the past 2 weeks. Patient was seen at her oncologist office today for injections and was found to have low oxygenation. Patient was advised to go to ER. Denied any history of prior coronary artery disease or congestive heart failure. Patient does have worsening exertional short of breath. Denied any chest pain. No fever no chills. No cough or sputum production. No nausea vomiting abdominal pain or diarrhea. No headache or dizziness or lightheadedness. EKG performed at 1058: EKG shows normal sinus rhythm at 93 bpm. PA interval 172. QRS 86 QT/QTC 358/445. No acute ST change. BNP 1090 Chest x-ray showed new fluid overload with to moderate interstitial pulmonary edema and trace bilateral pleural effusions. Bibasilar airspace disease likely represent atelectasis WBC 7.6, hemoglobin 13.2 Troponin 2 negative Blood sugar 246 08/28/2019 Patient is currently sitting in the chair comfortably. Saturating well on room air. Currently being continued on IV Lasix every 8 hourly 40 mg. Chest x-ray showed improvement in volume status. Bilateral Leg swelling is improving as well. 2-D echocardiogram showed myelitis stenosis. Normal EF. Cardiology has seen the patient. Patient was also seen by oncology. Patient is found to have elevated d-dimer level which could be due to acute CHF. Patient is currently not hypoxic or tachycardic. No headache or dizziness or lightheadedness. No asymmetric leg swelling. No complains of chest pain or pleuritic chest pain. No shortness of breath. No fever no chills. No dysuria or hematuria. Current medications reviewed. Objective - Vital Signs Vital signs: Vital Signs Temp 97.6 F 08/28/19 20:00 Pulse 71 08/28/19 20:00 Resp 18 08/28/19 20:00 BP 113/61 08/28/19 20:00 Pulse Ox 98 08/28/19 20:00 Intake & Output 08/28/19 08/28/19 08/29/19 06:59 18:59 06:59 Intake Total 710 Output Total 850 2000 300 Balance -850 -1820 -300 Weight 107.9 kg 107.9 kg Intake: IV 10 0.9% NS 10 mL flush 10 Oral 700 Output: Urine 850 2000 300 Other: # Voids 1 2 - Exam PHYSICAL EXAMINATION: Patient is lying in the bed comfortably, no acute distress, awake alert and oriented. Morbid obese. HEENT: Normocephalic. Neck is supple. Pupils reactive. Nostrils clear. Oral cavity is moist. Ears reveal no drainage. Neck reveals no JVD, carotid bruits, or thyromegaly. CHEST EXAMINATION: Trachea is central. Symmetrical expansion. Bibasilar diminished air entry. Lung mojica clear to auscultation and percussion. CARDIAC: Normal S1, S2 with no gallops. No murmurs ABDOMEN: Soft. Bowel sounds normal. No organomegaly. No abdominal bruits. Extremities: Bilateral 2+ pedal edema. No clubbing or cyanosis Neurologically awake, alert, oriented x3 with well-coordinated movements. No focal deficits noted Skin: No rash or skin lesions. Psychiatric: Coperative. Nonsuicidal Musculoskeletal: No joint swelling or deformity. Normal range of motion. - Labs CBC & Chem 7: 08/28/19 05:45 08/28/19 05:45 Labs: Abnormal Lab Results - Last 24 Hours (Table) 08/28/19 08/28/19 08/28/19 Range/Units 05:45 05:45 05:45 Hgb 10.2 L (11.4-16.0) gm/dL Hct 33.3 L (34.0-46.0) % MCHC 30.8 L (31.0-37.0) g/dL RDW 18.4 H (11.5-15.5) % D-Dimer (<0.60) mg/L FEU BUN 20 H (7-17) mg/dL Glucose 149 H (74-99) mg/dL POC Glucose (mg/dL) (75-99) mg/dL Hemoglobin A1c 10.6 H (4.0-6.0) % 08/28/19 08/28/19 08/28/19 Range/Units 06:16 11:10 11:40 Hgb (11.4-16.0) gm/dL Hct (34.0-46.0) % MCHC (31.0-37.0) g/dL RDW (11.5-15.5) % D-Dimer 2.41 H (<0.60) mg/L FEU BUN (7-17) mg/dL Glucose (74-99) mg/dL POC Glucose (mg/dL) 153 H 133 H (75-99) mg/dL Hemoglobin A1c (4.0-6.0) % 08/28/19 08/28/19 Range/Units 16:49 20:16 Hgb (11.4-16.0) gm/dL Hct (34.0-46.0) % MCHC (31.0-37.0) g/dL RDW (11.5-15.5) % D-Dimer (<0.60) mg/L FEU BUN (7-17) mg/dL Glucose (74-99) mg/dL POC Glucose (mg/dL) 147 H 135 H (75-99) mg/dL Hemoglobin A1c (4.0-6.0) % Assessment and Plan Assessment: Shortness of breath secondary to acute CHF with diastolic dysfunction.. Ejection fraction normal.. Acute hypoxic respiratory failure secondary to above. Improved Recently diagnosed breast cancer with bony metastasis. Currently on followup with oncology. Previous history of smoking Hypertension Hyperglycemia with uncontrolled Diabetes type 2. A1c 10.5 Hypothyroidism GERD DVT prophylaxis with heparin subcu Morbid obesity with BMI 46.3 Plan: Patient will be continued on IV Lasix twice daily 40 mg, changed to by mouth. continue with aspirin. Continue with insulin sliding scale and blood sugar cont rol. Continue with the home medications and cardiology was consulted. Further recommendations based on the clinical course. Monitor renal function. Prognosis is guarded with multiple medical problems and metastatic cancer. Time with Patient: Greater than 30
[2019-08-29] MEDS: traMADol 50 MG TAB PO PRN ×2 (03:30→19:55)
[2019-08-29 06:13] LABS: Glucose,Whole Blood 104 mg/dL (75-99)
[2019-08-29] MEDS: INSULIN ASPART (NovoLOG) 100 UNIT/ML VIAL SQ SCH ×4 (06:41→22:26)
[2019-08-29] MEDS: LEVOTHYROXINE 125 MCG TAB PO SCH (06:44)
--- NOTE | 2019-08-29 08:11 | ECHOF ---
Referral Reason:CHF MEASUREMENTS -------- HEIGHT: 154.9 cm WEIGHT: 107.5 kg BP: 135/62 RVIDd: 2.7 cm (< 3.3) IVSd: 1.3 cm (0.6 - 1.1) LVIDd: 4.4 cm (3.9 - 5.3) LVPWd: 1.3 cm (0.6 - 1.1) IVSs: 1.8 cm LVIDs: 2.5 cm LVPWs: 2.3 cm Ao Diam: 3.0 cm (2.0 - 3.7) AV Cusp: 2.2 cm (1.5 - 2.6) LA Diam: 3.9 cm (2.7 - 3.8) MV EXCURSION: 19.089 mm (> 18.000) MV EF SLOPE: 99 mm/s (70 - 150) EPSS: 0.7 cm MV E Sukhdev: 0.79 m/s MV DecT: 220 ms MV A Sukhdev: 0.69 m/s MV E/A Ratio: 1.15 AV maxP.22 mmHg AV meanP.32 mmHg RAP: 5.00 mmHg RVSP: 14.10 mmHg FINDINGS -------- Sinus rhythm. This was a technically difficult study with suboptimal views. The left ventricular size is normal. There is mild concentric left ventricular hypertrophy. Overa ll left ventricular systolic function is normal with, an EF between 55 - 60 %. The right ventricle is normal in size. The left atrial size is normal. The right atrial size is normal. Lumason used Aortic valve is trileaflet and is mildly thickened. There is mild aortic valve sclerosis. Peak/me an gradient across the Aortic Valve is 14.22mmHg / 9.32mmHg. The mitral valve is normal. There is trace mitral regurgitation. The tricuspid valve appears structurally normal. Trace tricuspid regurgitation present. Right harini tricular systolic pressure is normal at < 35 mmHg. There is no pulmonic regurgitation present. The aortic root size is normal. IVC Not well visulized. There is no pericardial effusion. CONCLUSIONS -------- 1. Sinus rhythm. 2. This was a technically difficult study with suboptimal views. 3. The left ventricular size is normal. 4. There is mild concentric left ventricular hypertrophy. 5. Overall left ventricular systolic function is normal with, an EF between 55 - 60 %. 6. The right ventricle is normal in size. 7. The left atrial size is normal. 8. The right atrial size is normal. 9. Lumason used 10. Aortic valve is trileaflet and is mildly thickened. 11. There is mild aortic valve sclerosis. 12. Peak/mean gradient across the Aortic Valve is 14.22mmHg / 9.32mmHg. 13. The mitral valve is normal. 14. There is trace mitral regurgitation. 15. The tricuspid valve appears structurally normal. 16. Trace tricuspid regurgitation present. 17. Right ventricular systolic pressure is normal at < 35 mmHg. 18. There is no pulmonic regurgitation present. 19. The aortic root size is normal. 20. IVC Not well visulized. 21. There is no pericardial effusion. CARPORT ERECTOR: Rosemarie Hutchinson RDCS
[2019-08-29] MEDS: GABAPENTIN 400 MG CAP PO SCH ×4 (08:27→22:28)
[2019-08-29] MEDS: ASPIRIN 81 MG PO SCH (08:28)
[2019-08-29] MEDS: glipiZIDE 10 MG TAB PO SCH ×2 (08:29→17:15)
[2019-08-29] MEDS: HEPARIN SODIUM,PORCINE 5,000 UNIT/ML 1 ML VIAL SQ SCH ×3 (08:29→22:28)
[2019-08-29] MEDS ORDERED: FUROSEMIDE 40 MG TAB PO SCH (09:00)
[2019-08-29 11:52] LABS: Glucose,Whole Blood 154 mg/dL (75-99)
[2019-08-29] MEDS: MUPIROCIN 2% OINT 22 GM TUBE TOPICAL SCH ×3 (11:53→22:27)
[2019-08-29] MEDS: NYSTATIN 100,000UNIT/GM CREAM 30 GM TUBE TOPICAL SCH (11:53)
[2019-08-29] MEDS: TRIAMCINOLONE ACET 0.1% OINTMENT 15 GM TUBE TOPICAL SCH (11:53)
[2019-08-29 12:02] LABS: Potassium 4.4 mmol/L (3.5-5.1)
[2019-08-29 12:03] LABS: Calcium 8.6 mg/dL (8.4-10.2)
[2019-08-29 12:17] LABS: Anisocytosis Slight; HCT 32.9 % (34.0-46.0); HGB 9.9 gm/dL (11.4-16.0); Hypochromasia Marked; MCH 25.4 pg (25.0-35.0); MCHC 30.1 g/dL (31.0-37.0); MCV 84.3 fL (80.0-100.0); Mean Platelet Volume 7.4; Platelet Count 379 k/uL (150-450); RDW 18.1 % (11.5-15.5); WBC 5.5 k/uL (3.8-10.6)
[2019-08-29 12:36] LABS: Basophils # (M) 0.06 k/uL (0-0.2); Eosinophils # (M) 0.44 k/uL (0-0.7); Monocytes # (M) 0.72 k/uL (0-1.0); Neutrophils # (M) 3.19 k/uL (1.3-7.7); Neutrophils % (M) 58 %; Nucleated Red Blood Cells 0 /100 WBC (0-0); Polychromasia Present; Total Cells Counted 100
[2019-08-29] MEDS: SODIUM CHLORIDE 0.9% 1,000 ML IV SCH (13:00)
--- NOTE | 2019-08-29 14:03 | P.PN ---
Subjective Progress Note Date: 08/29/19 Principal diagnosis: Diastolic CHF/lower extremity edema PROGRESS NOTE 08/29/19 69-year-old female with history of smoking 2 PPD, hypertension, DM 2 and metastatic breast cancer with mets to bone/lung who presented to ER with hypoxia and increasing shortness of breath over the last 2 weeks. Patient was recently started on oral chemotherapy by oncology and began to develop increasing shortness of breath with lower extremity edema. Patient currently sitting in the chair with no acute distress. Patient has no current complaints of chest pain, chest pressure or palpitations. Pt does continue with shortness of breath and lower extremity edema. Patient does continue on 2 L of supplemental oxygen via NC. Patient continues sinus rhythm, controlled rate at 66. Pt does have D- Dimer elevation and low BP. BP meds were held this day. Negative troponins. Most recent EF 55-60%. PHYSICAL EXAMINATION: HEENT: Head is atraumatic, normocephalic. Pupils are equal, round. Sclerae anicteric. Conjunctivae are clear. Mucous membranes of the mouth are moist. Neck is supple. There is no jugular venous distention. No carotid bruit is heard. No thyromegaly. LUNGS: Diminished to auscultation no wheezes, rales or rhonchi. No chest wall tenderness is noted on palpation or with deep breathing. HEART: Regular rate and rhythm without murmurs, rubs or gallops. S1 and S2 heard. ABDOMEN: Abdominal exam revealed normal bowel sounds. The abdomen was soft, non- tender, and without masses, organomegaly, or appreciable enlargement of the abdominal aorta. EXTREMITIES: Examination of the extremities revealed easily palpable radial, f emoral and pedal pulses. Severe 3-4+ edema bilaterally. No calf tenderness noted. VASCULAR: Radial and dorsalis pedis pulses palpated, no evidence of clubbing. NEUROLOGIC: Patient is awake, alert and oriented x3. There were no obvious focal neurologic abnormalities. LAB DATA: BUN 37, CR 2.07 FINAL IMPRESSION: 1. acute diastolic heart failure 2. mild 3. hypertension 4. metastatic breast cancer with oral chemotherapy treatment 5. volume overload PLAN: Discontinue Lasix. Start 0.9 normal saline at 75 ML's per hour. Continue same all other medical/medication regime Heart healthy low-salt diet. Repeat CBC/BMP in a.m. Will order V/Q scan for D-dimer elevation. Objective - Vital Signs Vital signs: Vital Signs Temp 97.9 F 08/29/19 12:00 Pulse 69 08/29/19 12:00 Resp 20 08/29/19 12:00 BP 90/63 08/29/19 12:00 Pulse Ox 94 L 08/29/19 12:00 Intake & Output 08/28/19 08/29/19 08/29/19 18:59 06:59 18:59 Intake Total 710 250 Output Total 2000 550 Balance -1290 -550 250 Weight 107.9 kg 107.4 kg 107.4 kg Intake: IV 10 10 0.9% NS 10 mL flush 10 10 Oral 700 240 Output: Urine 1999 550 Other: Voiding Method Toilet # Voids 2 - Labs CBC & Chem 7: 08/29/19 11:32 08/29/19 11:32 Labs: Abnormal Lab Results - Last 24 Hours (Table) 08/28/19 08/28/19 08/28/19 Range/Units 05:45 16:49 20:16 Hgb (11.4-16.0) gm/dL Hct (34.0-46.0) % MCHC (31.0-37.0) g/dL RDW (11.5-15.5) % Sodium (137-145) mmol/L Chloride (98-107) mmol/L Carbon Dioxide (22-30) mmol/L BUN (7-17) mg/dL Creatinine (0.52-1.04) mg/dL Glucose (74-99) mg/dL POC Glucose (mg/dL) 147 H 135 H (75-99) mg/dL Hemoglobin A1c 10.6 H (4.0-6.0) % 08/29/19 08/29/19 08/29/19 Range/Units 06:11 11:32 11:32 Hgb 9.9 L (11.4-16.0) gm/dL Hct 32.9 L (34.0-46.0) % MCHC 30.1 L (31.0-37.0) g/dL RDW 18.1 H (11.5-15.5) % Sodium 136 L (137-145) mmol/L Chloride 95 L (98-107) mmol/L Carbon Dioxide 31 H (22-30) mmol/L BUN 37 H (7-17) mg/dL Creatinine 2.07 H (0.52-1.04) mg/dL Glucose 162 H (74-99) mg/dL POC Glucose (mg/dL) 104 H (75-99) mg/dL Hemoglobin A1c (4.0-6.0) % 08/29/19 Range/Units 11:50 Hgb (11.4-16.0) gm/dL Hct (34.0-46.0) % MCHC (31.0-37.0) g/dL RDW (11.5-15.5) % Sodium (137-145) mmol/L Chloride (98-107) mmol/L Carbon Dioxide (22-30) mmol/L BUN (7-17) mg/dL Creatinine (0.52-1.04) mg/dL Glucose (74-99) mg/dL POC Glucose (mg/dL) 154 H (75-99) mg/dL Hemoglobin A1c (4.0-6.0) %
--- NOTE | 2019-08-29 15:33 | NM ---
EXAMINATION TYPE: NM pul perfusion DATE OF EXAM: 08/29/2019 COMPARISON: NONE HISTORY: Elevated d-dimer Following administration of 5.21 mCi Tc 99m MAA. Images obtained post injection. FINDINGS: There is bilateral defects at the lung bases related to pleural effusions evident on the chest x-ray yesterday. There is no segmental type defect. IMPRESSION: Pleural fluid related defects at the lung bases. There is a low probability of pulmonary embolism.
[2019-08-29 16:35] LABS: Glucose,Whole Blood 106 mg/dL (75-99)
[2019-08-29] MEDS ORDERED: SODIUM CHLORIDE 0.9% 500 ML 250 ML IV ONE (16:59)
[2019-08-29] MEDS: LISINOPRIL 20 MG TAB PO SCH (17:14)
[2019-08-29] MEDS: ATENOLOL 25 MG TAB PO SCH (17:14)
[2019-08-29 20:37] LABS: Glucose,Whole Blood 155 mg/dL (75-99)
--- NOTE | 2019-08-29 23:04 | P.PN ---
Subjective Progress Note Date: 08/29/19 Principal diagnosis: Acute CHF with diastolic dysfunction Patient is a 69-year-old female with a known history of recently diagnosed breast cancer with bone metastasis currently on hormonal therapy presents to ER with the complaints of leg swelling and increased short of breath for the past 2 weeks. Patient was seen at her oncologist office today for injections and was found to have low oxygenation. Patient was advised to go to ER. Denied any history of prior coronary artery disease or congestive heart failure. Patient does have worsening exertional short of breath. Denied any chest pain. No fever no chills. No cough or sputum production. No nausea vomiting abdominal pain or diarrhea. No headache or dizziness or lightheadedness. EKG performed at 1058: EKG shows normal sinus rhythm at 93 bpm. ME interval 172. QRS 86 QT/QTC 358/445. No acute ST change. BNP 1090 Chest x-ray showed new fluid overload with to moderate interstitial pulmonary edema and trace bilateral pleural effusions. Bibasilar airspace disease likely represent atelectasis WBC 7.6, hemoglobin 13.2 Troponin 2 negative Blood sugar 246 08/28/2019 Patient is currently sitting in the chair comfortably. Saturating well on room air. Currently being continued on IV Lasix every 8 hourly 40 mg. Chest x-ray showed improvement in volume status. Bilateral Leg swelling is improving as well. 2-D echocardiogram showed myelitis stenosis. Normal EF. Cardiology has seen the patient. Patient was also seen by oncology. Patient is found to have elevated d-dimer level which could be due to acute CHF. Patient is currently not hypoxic or tachycardic. No headache or dizziness or lightheadedness. No asymmetric leg swelling. No complains of chest pain or pleuritic chest pain. No shortness of breath. No fever no chills. No dysuria or hematuria. 08/28/2019 Patient is currently awake and stable to sit in the chair comfortably. Currently requiring oxygen via nasal cannula. Patient was found to have elevated d-dimer. Creatinine level increased to 2 today likely due to hypotension and diaphoresis. Blood pressure is in the 90s this morning. Due to elevated creatinine level, VQ scan was ordered to rule out pulmonary embolism. Showed low probability for PE. Lasix has been discontinued and patient was started on gentle hydration. Monitor renal function closely. Cardiology and oncology is on board. Patient denied any complaints of chest pain or shortness of breath. Leg swelling is still present. Current medications reviewed. Objective - Vital Signs Vital signs: Vital Signs Temp 98.0 F 08/29/19 19:49 Pulse 79 08/29/19 19:49 Resp 20 08/29/19 19:49 BP 103/54 08/29/19 19:49 Pulse Ox 97 08/29/19 19:49 Intake & Output 08/29/19 08/29/19 08/30/19 06:59 18:59 06:59 Intake Total 250 Output Total 550 Balance -550 250 Weight 107.4 kg 107.4 kg Intake: IV 10 0.9% NS 10 mL flush 10 Oral 240 Output: Urine 550 Other: Voiding Method Toilet Toilet # Voids 2 1 - Exam PHYSICAL EXAMINATION: Patient is lying in the bed comfortably, no acute distress, awake alert and oriented. Morbid obese. HEENT: Normocephalic. Neck is supple. Pupils reactive. Nostrils clear. Oral cavity is moist. Ears reveal no drainage. Neck reveals no JVD, carotid bruits, or thyromegaly. CHEST EXAMINATION: Trachea is central. Symmetrical expansion. Bibasilar diminished air entry. Lung mojica clear to auscultation and percussion. CARDIAC: Normal S1, S2 with no gallops. No murmurs ABDOMEN: Soft. Bowel sounds normal. No organomegaly. No abdominal bruits. Extremities: Bilateral 2+ pedal edema. No clubbing or cyanosis Neurologically awake, alert, oriented x3 with well-coordinated movements. No focal deficits noted Skin: No rash or skin lesions. Psychiatric: Coperative. Nonsuicidal Musculoskeletal: No joint swelling or deformity. Normal range of motion. - Labs CBC & Chem 7: 08/29/19 11:32 08/29/19 11:32 Labs: Abnormal Lab Results - Last 24 Hours (Table) 08/29/19 08/29/19 08/29/19 Range/Units 06:11 11:32 11:32 Hgb 9.9 L (11.4-16.0) gm/dL Hct 32.9 L (34.0-46.0) % MCHC 30.1 L (31.0-37.0) g/dL RDW 18.1 H (11.5-15.5) % Sodium 136 L (137-145) mmol/L Chloride 95 L (98-107) mmol/L Carbon Dioxide 31 H (22-30) mmol/L BUN 37 H (7-17) mg/dL Creatinine 2.07 H (0.52-1.04) mg/dL Glucose 162 H (74-99) mg/dL POC Glucose (mg/dL) 104 H (75-99) mg/dL 08/29/19 08/29/19 08/29/19 Range/Units 11:50 16:33 20:36 Hgb (11.4-16.0) gm/dL Hct (34.0-46.0) % MCHC (31.0-37.0) g/dL RDW (11.5-15.5) % Sodium (137-145) mmol/L Chloride (98-107) mmol/L Carbon Dioxide (22-30) mmol/L BUN (7-17) mg/dL Creatinine (0.52-1.04) mg/dL Glucose (74-99) mg/dL POC Glucose (mg/dL) 154 H 106 H 155 H (75-99) mg/dL Assessment and Plan Assessment: Shortness of breath secondary to acute CHF with diastolic dysfunction.. Ejection fraction normal.. Acute hypoxic respiratory failure secondary to above. Improved Acute kidney injury due to hypotension and decreased renal perfusion. Possible ATN. Recently diagnosed breast cancer with bony metastasis. Currently on followup with oncology. Previous history of smoking Hypertension Hyperglycemia with uncontrolled Diabetes type 2. A1c 10.5 Hypothyroidism GERD DVT prophylaxis with heparin subcu Morbid obesity with BMI 46.3 Plan: Lasix has been discontinued. Patient was started on gentle hydration due to elevated BUN and creatinine level... continue with aspirin. Continue with insulin sliding scale and blood sugar control. Continue with the home medications and cardiology was consulted. Further recommendations based on the clinical course. Monitor renal function. Prognosis is guarded with multiple medical problems and metastatic cancer. Time with Patient: Greater than 30
[2019-08-30] MEDS: traMADol 50 MG TAB PO PRN ×2 (05:05→21:15)
[2019-08-30] MEDS: SODIUM CHLORIDE 0.9% 1,000 ML IV SCH ×2 (05:06→17:04)
[2019-08-30] MEDS: LEVOTHYROXINE 125 MCG TAB PO SCH (05:06)
[2019-08-30 06:07] LABS: Glucose,Whole Blood 152 mg/dL (75-99)
[2019-08-30] MEDS: INSULIN ASPART (NovoLOG) 100 UNIT/ML VIAL SQ SCH ×4 (06:41→21:16)
[2019-08-30] MEDS: glipiZIDE 10 MG TAB PO SCH ×2 (06:41→17:05)
[2019-08-30 06:51] LABS: Anisocytosis Slight; Basophils # (A) 0.1 k/uL (0-0.2); Basophils % (A) 1 %; Eosinophils # (A) 0.4 k/uL (0-0.7); Eosinophils % (A) 6 %; HCT 32.4 % (34.0-46.0); HGB 9.7 gm/dL (11.4-16.0); Hypochromasia Moderate; Lymphocytes # (A) 0.8 k/uL (1.0-4.8); Lymphocytes % (A) 14 %; MCH 25.3 pg (25.0-35.0); MCHC 30.1 g/dL (31.0-37.0); MCV 84.2 fL (80.0-100.0); Mean Platelet Volume 7.4; Monocytes # (A) 0.4 k/uL (0-1.0); Monocytes % (A) 7 %; Neutrophils % (A) 67 %; Platelet Count 344 k/uL (150-450); RBC 3.85 m/uL (3.80-5.40); RDW 18.6 % (11.5-15.5)
[2019-08-30 07:02] LABS: Calcium 8.2 mg/dL (8.4-10.2); Potassium 4.5 mmol/L (3.5-5.1)
[2019-08-30] MEDS: ASPIRIN 81 MG PO SCH (08:28)
[2019-08-30] MEDS: HEPARIN SODIUM,PORCINE 5,000 UNIT/ML 1 ML VIAL SQ SCH ×3 (08:28→22:38)
[2019-08-30] MEDS: GABAPENTIN 400 MG CAP PO SCH ×5 (08:28→21:15)
[2019-08-30] MEDS: TRIAMCINOLONE ACET 0.1% OINTMENT 15 GM TUBE TOPICAL SCH (08:30)
[2019-08-30] MEDS: NYSTATIN 100,000UNIT/GM CREAM 30 GM TUBE TOPICAL SCH (08:30)
[2019-08-30] MEDS: MUPIROCIN 2% OINT 22 GM TUBE TOPICAL SCH ×3 (08:30→21:17)
[2019-08-30] MEDS: LISINOPRIL 2.5 MG TAB PO SCH (08:55)
[2019-08-30] MEDS: ATENOLOL 25 MG TAB PO SCH (08:55)
[2019-08-30] MEDS ORDERED: FUROSEMIDE 20 MG TAB PO SCH (09:30)
--- NOTE | 2019-08-30 10:23 | XR ---
EXAMINATION TYPE: XR chest 2V DATE OF EXAM: 08/30/2019 HISTORY: Pleural effusions bilaterally. REFERENCE: Previous study dated 08/28/2019. FINDINGS: A MediPort is in place on the right. Heart size is mildly prominent. There are both pulmonary and bony metastases. There are small, bilate ral effusions. There is vascular congestion and mild edema. There is some confluent airspace disease at the right lung base IMPRESSION: 1. DIFFUSE METASTATIC DISEASE. 2. SUBTLE CHANGES OF CONGESTIVE HEART FAILURE. 3. RIGHT BASILAR AIRSPACE DISEASE MAY REPRESENT CONFLUENT EDEMA OR PNEUMONIA. 4. SMALL, BILATERAL EFFUSIONS.
--- NOTE | 2019-08-30 11:13 | P.PN ---
Subjective Progress Note Date: 08/30/19 Principal diagnosis: Diastolic CHF/lower extremity edema PROGRESS NOTE 08/29/19 69-year-old female with history of smoking 2 PPD, hypertension, DM 2 and metastatic breast cancer with mets to bone/lung who presented to ER with hypoxia and increasing shortness of breath over the last 2 weeks. Patient was recently started on oral chemotherapy by oncology and began to develop increasing shortness of breath with lower extremity edema. Patient currently sitting in the chair with no acute distress. Patient has no current complaints of chest pain, chest pressure or palpitations. Pt does continue with shortness of breath and lower extremity edema. Patient does continue on 2 L of supplemental oxygen via NC. Patient continues sinus rhythm, controlled rate at 66. Pt does have D- Dimer elevation and low BP. BP meds were held this day. Negative troponins. Most recent EF 55-60%. PROGRESS NOTE 08/30/19 Patient seen this day sitting up in chair in no acute distress. Patient has no current complaints of chest pain, chest pressure or palpitations. Patient lower extremity edema has mildly improved. Patient continue sinus rhythm, heart rate 77. BP remains low at 100/59. Patient saturation is 98% but patient continues with 2 L of supplemental O2. Patient also continues with cough and fine crackl es to lower bilateral lung bases. Patient is able to get up and ambulate to the bathroom. Patient did have episode of confusion last evening and this a.m. Nursing staff is concerned about possible metastases to head. remains at bedside. Patient states she feels mildly improved but hacking cough remains. V/Q scan negative for PE. PHYSICAL EXAMINATION: HEENT: Head is atraumatic, normocephalic. Pupils are equal, round. Sclerae anicteric. Conjunctivae are clear. Mucous membranes of the mouth are moist. Neck is supple. There is no jugular venous distention. No carotid bruit is heard. No thyromegaly. LUNGS: Improved, CTI to upper lung mojica, fine crackles to lung bases on auscultation. No wheezes, rales or rhonchi. No chest wall tenderness is noted on palpation or with deep breathing. HEART: Regular rate and rhythm without murmurs, rubs or gallops. S1 and S2 heard. ABDOMEN: Abdominal exam revealed normal bowel sounds. The abdomen was soft, non-tender, and without masses, organomegaly, or appreciable enlargement of the abdominal aorta. EXTREMITIES: Examination of the extremities revealed easily palpable radial, femoral and pedal pulses. Severe 2-3+ edema bilaterally. No calf tenderness noted. VASCULAR: Radial and dorsalis pedis pulses palpated, no evidence of clubbing. NEUROLOGIC: Patient is awake, alert and oriented x3. There were no obvious focal neurologic abnormalities. LAB DATA: BUN 45, CR 1.86 FINAL IMPRESSION: 1. acute diastolic heart failure, improved 2. mild 3. hypertension 4. metastatic breast cancer with oral chemotherapy treatment 5. volume overload, improving PLAN: RESTART Lasix 40 mg once daily by oral route. Continue same all other medical/medication regime Heart healthy low-salt diet. Repeat CBC/BMP/Mag/BNP level in a.m. Cautious fluid and BP monitoring advised. Objective - Vital Signs Vital signs: Vital Signs Temp 98.3 F 08/30/19 07:47 Pulse 82 08/30/19 08:00 Resp 20 08/30/19 08:00 BP 100/56 08/30/19 07:47 Pulse Ox 94 L 08/30/19 07:47 Intake & Output 08/29/19 08/30/19 08/30/19 18:59 06:59 18:59 Intake Total 250 Output Total 620 Balance 250 -620 Weight 107.4 kg 106.5 kg Intake: IV 10 0.9% NS 10 mL flush 10 Oral 240 Output: Urine 620 Other: Voiding Method Toilet Toilet Toilet # Voids 2 - Labs CBC & Chem 7: 08/30/19 06:21 08/30/19 06:21 Labs: Abnormal Lab Results - Last 24 Hours (Table) 08/29/19 08/29/19 08/29/19 Range/Units 11:32 11:32 11:50 Hgb 9.9 L (11.4-16.0) gm/dL Hct 32.9 L (34.0-46.0) % MCHC 30.1 L (31.0-37.0) g/dL RDW 18.1 H (11.5-15.5) % Lymphocytes # (1.0-4.8) k/uL Sodium 136 L (137-145) mmol/L Chloride 95 L (98-107) mmol/L Carbon Dioxide 31 H (22-30) mmol/L BUN 37 H (7-17) mg/dL Creatinine 2.07 H (0.52-1.04) mg/dL Glucose 162 H (74-99) mg/dL POC Glucose (mg/dL) 154 H (75-99) mg/dL Calcium (8.4-10.2) mg/dL 08/29/19 08/29/19 08/30/19 Range/Units 16:33 20:36 06:05 Hgb (11.4-16.0) gm/dL Hct (34.0-46.0) % MCHC (31.0-37.0) g/dL RDW (11.5-15.5) % Lymphocytes # (1.0-4.8) k/uL Sodium (137-145) mmol/L Chloride (98-107) mmol/L Carbon Dioxide (22-30) mmol/L BUN (7-17) mg/dL Creatinine (0.52-1.04) mg/dL Glucose (74-99) mg/dL POC Glucose (mg/dL) 106 H 155 H 152 H (75-99) mg/dL Calcium (8.4-10.2) mg/dL 08/30/19 08/30/19 Range/Units 06:21 06:21 Hgb 9.7 L (11.4-16.0) gm/dL Hct 32.4 L (34.0-46.0) % MCHC 30.1 L (31.0-37.0) g/dL RDW 18.6 H (11.5-15.5) % Lymphocytes # 0.8 L (1.0-4.8) k/uL Sodium (137-145) mmol/L Chloride (98-107) mmol/L Carbon Dioxide (22-30) mmol/L BUN 45 H (7-17) mg/dL Creatinine 1.86 H (0.52-1.04) mg/dL Glucose 151 H (74-99) mg/dL POC Glucose (mg/dL) (75-99) mg/dL Calcium 8.2 L (8.4-10.2) mg/dL
[2019-08-30] MEDS ORDERED: FUROSEMIDE 20 MG TAB PO ONE (15:00)
[2019-08-30 16:42] LABS: Glucose,Whole Blood 102 mg/dL (75-99)
[2019-08-30 19:56] LABS: Glucose,Whole Blood 190 mg/dL (75-99)
--- NOTE | 2019-08-31 01:09 | P.PN ---
Subjective Progress Note Date: 08/30/19 Principal diagnosis: Acute CHF with diastolic dysfunction Patient is a 69-year-old female with a known history of recently diagnosed breast cancer with bone metastasis currently on hormonal therapy presents to ER with the complaints of leg swelling and increased short of breath for the past 2 weeks. Patient was seen at her oncologist office today for injections and was found to have low oxygenation. Patient was advised to go to ER. Denied any history of prior coronary artery disease or congestive heart failure. Patient does have worsening exertional short of breath. Denied any chest pain. No fever no chills. No cough or sputum production. No nausea vomiting abdominal pain or diarrhea. No headache or dizziness or lightheadedness. EKG performed at 1058: EKG shows normal sinus rhythm at 93 bpm. IN interval 172. QRS 86 QT/QTC 358/445. No acute ST change. BNP 1090 Chest x-ray showed new fluid overload with to moderate interstitial pulmonary edema and trace bilateral pleural effusions. Bibasilar airspace disease likely represent atelectasis WBC 7.6, hemoglobin 13.2 Troponin 2 negative Blood sugar 246 08/28/2019 Patient is currently sitting in the chair comfortably. Saturating well on room air. Currently being continued on IV Lasix every 8 hourly 40 mg. Chest x-ray showed improvement in volume status. Bilateral Leg swelling is improving as well. 2-D echocardiogram showed myelitis stenosis. Normal EF. Cardiology has seen the patient. Patient was also seen by oncology. Patient is found to have elevated d-dimer level which could be due to acute CHF. Patient is currently not hypoxic or tachycardic. No headache or dizziness or lightheadedness. No asymmetric leg swelling. No complains of chest pain or pleuritic chest pain. No shortness of breath. No fever no chills. No dysuria or hematuria. 08/29/2019 Patient is currently awake and stable to sit in the chair comfortably. Currently requiring oxygen via nasal cannula. Patient was found to have elevated d-dimer. Creatinine level increased to 2 today likely due to hypotension and diaphoresis. Blood pressure is in the 90s this morning. Due to elevated creatinine level, VQ scan was ordered to rule out pulmonary embolism. Showed low probability for PE. Lasix has been discontinued and patient was started on gentle hydration. Monitor renal function closely. Cardiology and oncology is on board. Patient denied any complaints of chest pain or shortness of breath. Leg swelling is still present. 08/30/2019 Patient is currently less confused and is able to sit on the side of the bed comfortably. Denied any worsening shortness of breath. Able to ambulate to the bathroom. Currently saturating well on 2 L oxygen with another cannula. Blood pressure on the lower side. VQ scan showed low probability for PE. Creatinine level improved to 1.86 today. Lasix was changed to 40 mg daily. IV fluids have been discontinued. Hemoglobin 9.7. Patient has been afebrile. Bibasilar diminished air entry and minimal crackles present. Mild improvement in leg swelling as well. Patient may need home oxygen evaluation. Follow-up renal function tomorrow. Current medications reviewed. Objective - Vital Signs Vital signs: Vital Signs Temp 97.9 F 08/30/19 12:10 Pulse 113 H 08/30/19 12:10 Resp 14 08/30/19 12:10 BP 131/84 08/30/19 12:10 Pulse Ox 97 08/30/19 12:10 Intake & Output 08/29/19 08/30/19 08/30/19 18:59 06:59 18:59 Intake Total 250 740 Output Total 620 250 Balance 250 -620 490 Weight 107.4 kg 106.5 kg Intake: IV 10 0.9% NS 10 mL flush 10 Intake, IV Titration 160 Amount Sodium Chloride 0.9% 1, 160 000 ml @ 75 mls/hr IV . [id number] [facility] Rx#:[id number] Oral 240 580 Output: Urine 620 250 Other: Voiding Method Toilet Toilet Toilet # Voids 2 1 # Bowel Movements 0 - Exam PHYSICAL EXAMINATION: Patient is lying in the bed comfortably, no acute distress, awake alert and oriented. Morbid obese. HEENT: Normocephalic. Neck is supple. Pupils reactive. Nostrils clear. Oral cavity is moist. Ears reveal no drainage. Neck reveals no JVD, carotid bruits, or thyromegaly. CHEST EXAMINATION: Trachea is central. Symmetrical expansion. Bibasilar diminished air entry. Lung mojica clear to auscultation and percussion. CARDIAC: Normal S1, S2 with no gallops. No murmurs ABDOMEN: Soft. Bowel sounds normal. No organomegaly. No abdominal bruits. Extremities: Bilateral 2+ pedal edema. No clubbing or cyanosis Neurologically awake, alert, oriented x3 with well-coordinated movements. No focal deficits noted Skin: No rash or skin lesions. Psychiatric: Coperative. Nonsuicidal Musculoskeletal: No joint swelling or deformity. Normal range of motion. - Labs CBC & Chem 7: 08/30/19 06:21 08/30/19 06:21 Labs: Abnormal Lab Results - Last 24 Hours (Table) 08/29/19 08/30/19 08/30/19 Range/Units 20:36 06:05 06:21 Hgb 9.7 L (11.4-16.0) gm/dL Hct 32.4 L (34.0-46.0) % MCHC 30.1 L (31.0-37.0) g/dL RDW 18.6 H (11.5-15.5) % Lymphocytes # 0.8 L (1.0-4.8) k/uL BUN (7-17) mg/dL Creatinine (0.52-1.04) mg/dL Glucose (74-99) mg/dL POC Glucose (mg/dL) 155 H 152 H (75-99) mg/dL Calcium (8.4-10.2) mg/dL 08/30/19 08/30/19 Range/Units 06:21 16:40 Hgb (11.4-16.0) gm/dL Hct (34.0-46.0) % MCHC (31.0-37.0) g/dL RDW (11.5-15.5) % Lymphocytes # (1.0-4.8) k/uL BUN 45 H (7-17) mg/dL Creatinine 1.86 H (0.52-1.04) mg/dL Glucose 151 H (74-99) mg/dL POC Glucose (mg/dL) 102 H (75-99) mg/dL Calcium 8.2 L (8.4-10.2) mg/dL Assessment and Plan Assessment: Shortness of breath secondary to acute CHF with diastolic dysfunction.. Ejection fraction normal.. Acute hypoxic respiratory failure secondary to above. Improved. Currently on oxygen via nasal cannula. Acute kidney injury due to hypotension and decreased renal perfusion. Possible ATN. Recently diagnosed breast cancer with bony metastasis. Currently on followup with oncology. Previous history of smoking Hypertension Hyperglycemia with uncontrolled Diabetes type 2. A1c 10.5 Hypothyroidism GERD DVT prophylaxis with heparin subcu Morbid obesity with BMI 46.3 Plan: Lasix has been discontinued. Patient was started on gentle hydration due to elevated BUN and creatinine level. Creatinine level is improving. IV fluids have been discontinued. Lasix was changed to by mouth. continue with aspirin. Continue with insulin sliding scale and blood sugar control. Continue with the home medications and cardiology is following. [facility] er recommendations based on the clinical course. Monitor renal function. Prognosis is guarded with multiple medical problems and metastatic cancer. Time with Patient: Greater than 30
[2019-08-31] MEDS: SODIUM CHLORIDE 0.9% 1,000 ML IV SCH ×2 (05:45→18:37)
[2019-08-31 06:24] LABS: Glucose,Whole Blood 163 mg/dL (75-99)
[2019-08-31] MEDS: LEVOTHYROXINE 125 MCG TAB PO SCH (06:33)
[2019-08-31] MEDS: glipiZIDE 10 MG TAB PO SCH ×2 (06:33→17:18)
[2019-08-31] MEDS: traMADol 50 MG TAB PO PRN ×2 (06:33→20:22)
[2019-08-31 07:05] LABS: Anisocytosis Slight; Basophils # (A) 0.1 k/uL (0-0.2); Basophils % (A) 1 %; Eosinophils # (A) 0.4 k/uL (0-0.7); Eosinophils % (A) 7 %; HCT 31.5 % (34.0-46.0); HGB 9.5 gm/dL (11.4-16.0); Hypochromasia Marked; Lymphocytes # (A) 1.1 k/uL (1.0-4.8); Lymphocytes % (A) 17 %; MCH 25.5 pg (25.0-35.0); MCHC 30.3 g/dL (31.0-37.0); MCV 84.2 fL (80.0-100.0); Mean Platelet Volume 7.8; Monocytes # (A) 0.5 k/uL (0-1.0); Monocytes % (A) 7 %; Neutrophils # (A) 4.2 k/uL (1.3-7.7); Neutrophils % (A) 66 %; Platelet Count 403 k/uL (150-450); RBC 3.74 m/uL (3.80-5.40); RDW 18.1 % (11.5-15.5); WBC 6.3 k/uL (3.8-10.6)
[2019-08-31 07:26] LABS: Calcium 8.4 mg/dL (8.4-10.2); Magnesium 1.8 mg/dL (1.6-2.3); Potassium 4.8 mmol/L (3.5-5.1)
[2019-08-31] MEDS: INSULIN ASPART (NovoLOG) 100 UNIT/ML VIAL SQ SCH ×4 (07:44→20:23)
[2019-08-31] MEDS: MAGNESIUM SULFATE-D5W PMX 1 GM in DEXTROSE/WATER 1 100ML.BAG IVPB SCH ×2 (08:38→11:01)
[2019-08-31] MEDS: HEPARIN SODIUM,PORCINE 5,000 UNIT/ML 1 ML VIAL SQ SCH ×3 (08:43→23:12)
[2019-08-31] MEDS: FUROSEMIDE 40 MG TAB PO SCH (08:43)
[2019-08-31] MEDS: ASPIRIN 81 MG PO SCH (08:43)
[2019-08-31] MEDS: ATENOLOL 25 MG TAB PO SCH (08:43)
[2019-08-31] MEDS: MUPIROCIN 2% OINT 22 GM TUBE TOPICAL SCH ×3 (08:43→20:22)
[2019-08-31] MEDS: GABAPENTIN 400 MG CAP PO SCH ×4 (08:43→20:22)
[2019-08-31] MEDS: LISINOPRIL 2.5 MG TAB PO SCH (08:43)
[2019-08-31] MEDS: TRIAMCINOLONE ACET 0.1% OINTMENT 15 GM TUBE TOPICAL SCH (08:43)
[2019-08-31] MEDS: NYSTATIN 100,000UNIT/GM CREAM 30 GM TUBE TOPICAL SCH (08:43)
[2019-08-31] MEDS ORDERED: FUROSEMIDE 10 MG/ML 2 ML VIAL IV STA (09:04)
--- NOTE | 2019-08-31 09:09 | P.PN ---
Subjective Patient is a 69-year-old female with a known history of recently diagnosed breast cancer with bone metastasis currently on hormonal therapy presents to ER with the complaints of leg swelling and increased short of breath for the past 2 weeks. Patient was seen at her oncologist office today for injections and was found to have low oxygenation. Patient was advised to go to ER. Denied any history of prior coronary artery disease or congestive heart failure. Patient does have worsening exertional short of breath. Denied any chest pain. No f ever no chills. No cough or sputum production. No nausea vomiting abdominal pain or diarrhea. No headache or dizziness or lightheadedness. EKG performed at 1058: EKG shows normal sinus rhythm at 93 bpm. FL interval 172. QRS 86 QT/QTC 358/445. No acute ST change. BNP 1090 Chest x-ray showed new fluid overload with to moderate interstitial pulmonary edema and trace bilateral pleural effusions. Bibasilar airspace disease likely represent atelectasis WBC 7.6, hemoglobin 13.2 Troponin 2 negative Blood sugar 246 08/28/2019 Patient is currently sitting in the chair comfortably. Saturating well on room air. Currently being continued on IV Lasix every 8 hourly 40 mg. Chest x-ray showed improvement in volume status. Bilateral Leg swelling is improving as well. 2-D echocardiogram showed myelitis stenosis. Normal EF. Cardiology has seen the patient. Patient was also seen by oncology. Patient is found to have elevated d-dimer level which could be due to acute CHF. Patient is currently not hypoxic or tachycardic. No headache or dizziness or lightheadedness. No asymmetric leg swelling. No complains of chest pain or pleuritic chest pain. No shortness of breath. No fever no chills. No dysuria or hematuria. 08/29/2019 Patient is currently awake and stable to sit in the chair comfortably. Currently requiring oxygen via nasal cannula. Patient was found to have elevated d-dimer. Creatinine level increased to 2 today likely due to hypotension and diaphoresis. Blood pressure is in the 90s this morning. Due to elevated creatinine level, VQ scan was ordered to rule out pulmonary embolism. Showed low probability for PE. Lasix has been discontinued and patient was started on gentle hydration. Monitor renal function closely. Cardiology and oncology is on board. Patient denied any complaints of chest pain or shortness of breath. Leg swelling is still present. 08/30/2019 Patient is currently less confused and is able to sit on the side of the bed comfortably. Denied any worsening shortness of breath. Able to ambulate to the bathroom. Currently saturating well on 2 L oxygen with another cannula. Blood pressure on the lower side. VQ scan showed low probability for PE. Creatinine level improved to 1.86 today. Lasix was changed to 40 mg daily. IV fluids have been discontinued. Hemoglobin 9.7. Patient has been afebrile. Bibasilar diminished air entry and minimal crackles present. Mild improvement in leg swelling as well. 08/31/2019 Patient is fully awake and oriented, at bedside. No chest pain. Her dyspnea is significantly improved since admission however patient oxygen is still dropping easily, for example last night dropped to 80s however this morning she saturating 100% oxygen via nasal cannula. Her creatinine came back close to normal at 1.08 compared to 2 upon admission, her abdomen was stopped and currently she is on oral Lasix. Her d-dimer was elevated however she had low probability for pulmonary embolism by VQ scan. Patient also has some redness, tenderness in the back of her left lower leg, could be related to cellulitis. We'll do ultrasound to rule out DVT. Also we'll start the patient on ceftriaxone and monitor the area Also patient complains from left hip pain and she agrees for x-ray Review of systems CONSTITUTIONAL: No fever, no malaise, no fatigue. HEENT: No recent visual problems or hearing problems. Denied any sore throat. CARDIOVASCULAR: No orthopnea, PND, no palpitations, no syncope. GASTROINTESTINAL: No diarrhea, no nausea, no vomiting, no abdominal pain. Normoactive bowel sounds. NEUROLOGICAL: No headaches, no weakness, no numbness. HEMATOLOGICAL: Denies any bleeding or petechiae. GENITOURINARY: Denies any burning micturition, frequency, or urgency. ENDOCRINE: Denies any polyuria or polydipsia. Active Medications Generic Name Dose Route Start Last Admin Trade Name Freq PRN Reason Stop Dose Admin Aspirin 81 mg 08/28/19 09:00 08/31/19 08:43 Aspirin PO 81 mg DAILY [facility]NY Administration Atenolol 25 mg 08/28/19 09:00 08/31/19 08:43 Tenormin PO 25 mg DAILY BENNY Administration Furosemide 40 mg 08/31/19 09:00 08/31/19 08:43 Lasix PO 40 mg DAILY BENNY Administration Gabapentin 400 mg 08/27/19 18:00 08/31/19 08:43 Neurontin PO 400 mg QID BENNY Administration Glipizide 10 mg 08/28/19 07:30 08/31/19 06:33 Glucotrol PO 10 mg AC-BID BENNY Administration Heparin Sodium (Porcine) 5,000 unit 08/28/19 00:00 08/31/19 08:43 Heparin SQ 5,000 unit Q8HR BENNY Administration Sodium Chloride 1,000 mls @ 75 mls/hr 08/29/19 12:30 08/31/19 05:45 Saline 0.9% IV Not Given .[id number] [facility]NY Magnesium Sulfate/Dextrose 1 100 mls @ 100 mls/hr 08/31/19 08:00 08/31/19 08:38 gm/ IV Solution IVPB 08/31/19 09:59 100 mls/hr Q1H [facility] Administration Cefazolin Sodium 2 gm/ Sodium 50 mls @ 100 mls/hr 08/31/19 09:15 Chloride IVPB Q12HR [facility] Insulin Aspart 0 unit 08/27/19 17:30 08/31/19 07:44 Novolog SQ Not Given ACHS [facility] Protocol Levothyroxine Sodium 125 mcg 08/28/19 06:30 08/31/19 06:33 Synthroid PO 125 mcg 0630 BENNY Administration Lisinopril 2.5 mg 08/30/19 09:00 08/31/19 08:43 Zestril PO 2.5 mg DAILY BENNY Administration Mupirocin 1 applic 08/27/19 22:00 08/31/19 08:43 Bactroban Oint TOPICAL 1 applic TID BENNY Administration Nystatin 1 applic 08/28/19 09:00 08/31/19 08:43 Mycostatin Cream TOPICAL 1 applic DAILY [facility]EN[facility] Administration Pantoprazole Sodium 40 mg 08/27/19 17:50 Protonix PO DAILY PRN acid reflux Tramadol HCl 100 mg 08/27/19 17:50 08/31/19 06:33 Ultram PO 100 mg Q6H PRN Administration Pain Triamcinolone Acetonide 1 applic 08/28/19 09:00 08/31/19 08:43 Kenalog TOPICAL 1 applic DAILY BENNY Administration Objective - Vital Signs Vital signs: Vital Signs Temp 97.8 F 08/31/19 04:00 Pulse 77 08/31/19 04:00 Resp 18 08/31/19 04:00 BP 134/60 08/31/19 04:00 Pulse Ox 100 08/31/19 04:00 Intake & Output 08/30/19 08/31/19 08/31/19 18:59 06:59 18:59 Intake Total 960 240 Output Total 500 300 Balance 460 -300 240 Weight 105.6 kg Intake: Intake, IV Titration 160 Amount Sodium Chloride 0.9% 1, 160 000 ml @ 75 mls/hr IV . [id number] [facility] Rx#:[id number] Oral 800 240 Output: Urine 500 300 Other: Voiding Method Toilet Toilet # Voids 1 1 1 # Bowel Movements 0 - Exam Patient is lying in the bed comfortably, no acute distress, awake alert and oriented. Morbid obese. HEENT: Normocephalic. Neck is supple. Pupils reactive. Nostrils clear. Oral cavity is moist. Ears reveal no drainage. Neck reveals no JVD, carotid bruits, or thyromegaly. CHEST EXAMINATION: Trachea is central. Symmetrical expansion. Bibasilar diminished air entry. Lung mojica clear to auscultation and percussion. CARDIAC: Normal S1, S2 with no gallops. No murmurs ABDOMEN: Soft. Bowel sounds normal. No organomegaly. No abdominal bruits. Extremities: Bilateral 2+ pedal edema. No clubbing or cyanosis Neurologically awake, alert, oriented x3 with well-coordinated movements. No focal deficits noted Skin: No rash or skin lesions. Psychiatric: Coperative. Nonsuicidal Musculoskeletal: No joint swelling or deformity. Normal range of motion. - Labs CBC & Chem 7: 08/31/19 05:55 08/31/19 05:55 Labs: Abnormal Lab Results - Last 24 Hours (Table) 08/30/19 08/30/19 08/31/19 Range/Units 16:40 19:55 05:55 RBC 3.74 L (3.80-5.40) m/uL Hgb 9.5 L (11.4-16.0) gm/dL Hct 31.5 L (34.0-46.0) % MCHC 30.3 L (31.0-37.0) g/dL RDW 18.1 H (11.5-15.5) % BUN (7-17) mg/dL Creatinine (0.52-1.04) mg/dL Glucose (74-99) mg/dL POC Glucose (mg/dL) 102 H 190 H (75-99) mg/dL 08/31/19 08/31/19 Range/Units 05:55 06:22 RBC (3.80-5.40) m/uL Hgb (11.4-16.0) gm/dL Hct (34.0-46.0) % MCHC (31.0-37.0) g/dL RDW (11.5-15.5) % BUN 36 H (7-17) mg/dL Creatinine 1.08 H (0.52-1.04) mg/dL Glucose 157 H (74-99) mg/dL POC Glucose (mg/dL) 163 H (75-99) mg/dL Assessment and Plan Assessment: Possible Cellulitis of the left leg Shortness of breath secondary to acute CHF with diastolic dysfunction.. Ejection fraction normal.. Acute hypoxic respiratory failure secondary to above. Also secondary to metastatic lung disease Improved. Currently on oxygen via nasal cannula. Acute kidney injury due to hypotension and decreased renal perfusion. Possible ATN. Improved and back close to normal Recently diagnosed breast cancer with bony metastasis. Currently on followup with oncology. Previous history of smoking Hypertension Hyperglycemia with uncontrolled Diabetes type 2. A1c 10.5 Hypothyroidism GERD Morbid obesity with BMI 46.3 Plan: This is a pleasant 69 years old female who presents with diastolic CHF and metastatic breast cancer disease to the lung affecting her breathing and now she has cellulitis of the left leg. Patient has IV fluids stopped, currently she is on Lasix orally, continue with Lasix and aspirin. Monitor oxygen level. Monitor kidney function. The patient and has been on bedside confirmed to me that they're aware of follow-up appointment with Dr.'s Leanne Uribe and they have been formation of appointments including the timing and dates and contact information at home that she passed follow-up. Also start the patient on ceftriaxone and monitor her left leg cellulitis. Labs and medication were reviewed.. Continue same treatment. Continue with symptomatic treatment. Resume home medication. Monitor lytes and vitals. DVT and GI prophylaxis. Further recommendations of the clinical course of the patient DVT prophylaxis: Subcutaneous heparin GI Prophylaxis: Pepcid PT/OT: Pending Prognosis is guarded
--- NOTE | 2019-08-31 10:27 | US ---
EXAMINATION TYPE: US venous doppler duplex LE DATE OF EXAM: 08/31/2019 10:01 AM COMPARISON: NONE CLINICAL HISTORY: Rule out DVT. Skin redness left posterior calf; in hospital for CHF, HT5'1", WT 232 lbs SIDE PERFORMED: Bilateral TECHNIQUE: The lower extremity deep venous system is examined utilizing real time linear array sonog zacarias with graded compression, doppler sonography and color-flow sonography. VESSELS IMAGED: Common Femoral Vein Deep Femoral Vein Greater Saphenous Vein * Femoral Vein Popliteal Vein Small Saphenous Vein * Proximal Calf Veins (* superficial vessels) Right Leg: Negative for DVT Left Leg: Negative for DVT IMPRESSION 1. No diagnostic evidence of DVT as visualized.
[2019-08-31 11:38] LABS: Glucose,Whole Blood 164 mg/dL (75-99)
--- NOTE | 2019-08-31 11:53 | P.PN ---
Subjective Progress Note Date: 08/31/19 Principal diagnosis: Heart failure with preserved LV function This is a 69-year-old female patient with diabetes, hypertension, history of smoking, was admitted to the hospital with increasing shortness of breath without any symptoms of chest pain or chest discomfort. The patient was diagnosed with heart failure. The echo revealed normal left ventricular systolic function was evidence of mild aortic stenosis, mild mitral regurgitation, and mild tricuspid regurgitation The patient was seen this morning. She is feeling better in term of shortness of breath. On examination she is euvolemic. She denies any symptoms of chest pain or chest discomfort. Currently she is on Lasix by mouth. The creatinine continues to be stable. From a cardiovascular standpoint overview, the patient possibly can be discharged home in the next 24 hours. Objective - Vital Signs Vital signs: Vital Signs Temp 97.7 F 08/31/19 11:46 Pulse 77 08/31/19 11:46 Resp 16 08/31/19 11:46 BP 129/60 08/31/19 11:46 Pulse Ox 97 08/31/19 11:46 Intake & Output 08/30/19 08/31/19 08/31/19 18:59 06:59 18:59 Intake Total 960 240 Output Total 500 300 300 Balance 460 -300 -60 Weight 105.6 kg Intake: Intake, IV Titration 160 Amount Sodium Chloride 0.9% 1, 160 000 ml @ 75 mls/hr IV . [id number] [facility] Rx#:[id number] Oral 800 240 Output: Urine 500 300 300 Other: Voiding Method Toilet Toilet Toilet # Voids 1 1 1 # Bowel Movements 0 - Constitutional General appearance: Present: no acute distress - Respiratory Respiratory: bilateral: diminished - Cardiovascular Heart sounds: normal: S1, S2 Abnormal Heart Sounds: Present: systolic murmur - Labs CBC & Chem 7: 08/31/19 05:55 08/31/19 05:55 Labs: Abnormal Lab Results - Last 24 Hours (Table) 08/30/19 08/30/19 08/31/19 Range/Units 16:40 19:55 05:55 RBC 3.74 L (3.80-5.40) m/uL Hgb 9.5 L (11.4-16.0) gm/dL Hct 31.5 L (34.0-46.0) % MCHC 30.3 L (31.0-37.0) g/dL RDW 18.1 H (11.5-15.5) % BUN (7-17) mg/dL Creatinine (0.52-1.04) mg/dL Glucose (74-99) mg/dL POC Glucose (mg/dL) 102 H 190 H (75-99) mg/dL 08/31/19 08/31/19 08/31/19 Range/Units 05:55 06:22 11:36 RBC (3.80-5.40) m/uL Hgb (11.4-16.0) gm/dL Hct (34.0-46.0) % MCHC (31.0-37.0) g/dL RDW (11.5-15.5) % BUN 36 H (7-17) mg/dL Creatinine 1.08 H (0.52-1.04) mg/dL Glucose 157 H (74-99) mg/dL POC Glucose (mg/dL) 163 H 164 H (75-99) mg/dL Assessment and Plan Assessment: Assessment Heart failure with preserved LV function, acute on chronic Mild aortic stenosis Hypertension History of breast cancer Plan The patient seems to be euvolemic Continue the current medical regimen Possible discharge home in the next 24 hours
--- NOTE | 2019-08-31 14:06 | XR ---
EXAMINATION TYPE: XR Hip Complete LT DATE OF EXAM: 08/31/2019 COMPARISON: NONE HISTORY: Pain TECHNIQUE: 2 views submitted FINDINGS: There diffuse sclerosis of all visualized osseous structures with destructive change involving the le ft inferior pubic ramus suggestive of pathologic fracture. Is no evidence of erosive change or acute fracture. IMPRESSION: 1. Widespread bony metastasis with pathologic fracture or destructive change involving the left infer ior pubic ramus.
--- NOTE | 2019-08-31 14:27 | P.PN ---
Subjective Progress Note Date: 08/31/19 Principal diagnosis: CHF In follow-up today patient is sitting up in the chair, she has lost right around 6 kg since admission with diuresis, she unfortunately, is still short of breath, with low O2 sat even at rest. No fevers, nausea, productive cough or chest pain. She does have cellulitis on the posterior aspect of her left leg. Doppler was negative for DVT Objective - Vital Signs Vital signs: Vital Signs Temp 97.7 F 08/31/19 11:46 Pulse 77 08/31/19 11:46 Resp 16 08/31/19 11:46 BP 129/60 08/31/19 11:46 Pulse Ox 97 08/31/19 11:46 Intake & Output 08/30/19 08/31/19 08/31/19 18:59 06:59 18:59 Intake Total 960 240 Output Total 500 300 300 Balance 460 -300 -60 Weight 105.6 kg Intake: Intake, IV Titration 160 Amount Sodium Chloride 0.9% 1, 160 000 ml @ 75 mls/hr IV . [id number] [facility] Rx#:[id number] Oral 800 240 Output: Urine 500 300 300 Other: Voiding Method Toilet Toilet Toilet # Voids 1 1 1 # Bowel Movements 0 - Constitutional General appearance: Present: cooperative, morbidly obese, no acute distress - EENT Eyes: Present: anicteric sclerae, EOMI ENT: Present: hearing grossly normal - Respiratory Respiratory: bilateral: CTA, diminished - Cardiovascular Rhythm: regular Heart sounds: normal: S1, S2 Abnormal Heart Sounds: Absent: systolic murmur, diastolic murmur, rub, S3 Gallop, S4 Gallop, click, other - Peripheral edema leg Peripheral Edema: bilateral: 1+ (nonpitting) - Gastrointestinal General gastrointestinal: Present: normal bowel sounds, soft - Integumentary Integumentary: Present: pale - Neurologic Neurologic: Present: CNII-XII intact - Musculoskeletal Musculoskeletal: Present: generalized weakness, strength equal bilaterally - Psychiatric Psychiatric: Present: A&O x's 3, appropriate affect, intact judgment & insight - Labs CBC & Chem 7: 08/31/19 05:55 08/31/19 05:55 Labs: Abnormal Lab Results - Last 24 Hours (Table) 02/16/20 02/16/20 02/17/20 Range/Units 16:40 19:55 05:55 RBC 3.74 L (3.80-5.40) m/uL Hgb 9.5 L (11.4-16.0) gm/dL Hct 31.5 L (34.0-46.0) % MCHC 30.3 L (31.0-37.0) g/dL RDW 18.1 H (11.5-15.5) % BUN (7-17) mg/dL Creatinine (0.52-1.04) mg/dL Glucose (74-99) mg/dL POC Glucose (mg/dL) 102 H 190 H (75-99) mg/dL 08/31/19 08/31/19 08/31/19 Range/Units 05:55 06:22 11:36 RBC (3.80-5.40) m/uL Hgb (11.4-16.0) gm/dL Hct (34.0-46.0) % MCHC (31.0-37.0) g/dL RDW (11.5-15.5) % BUN 36 H (7-17) mg/dL Creatinine 1.08 H (0.52-1.04) mg/dL Glucose 157 H (74-99) mg/dL POC Glucose (mg/dL) 163 H 164 H (75-99) mg/dL - Imaging and Cardiology Venous US: report reviewed hip x-ray report reviewed Assessment and Plan (1) CHF exacerbation Narrative/Plan: Patient treated for the same. Diuresed, still short of breath, O2 dependent. Defer to Cardiology Current Visit: Yes Status: Acute Priority: High Code(s): I50.9 - HEART FAILURE, UNSPECIFIED SNOMED Code(s): 160689141 (2) Metastatic breast cancer Narrative/Plan: Patient has been on the drug for just a little over a month with dose adjust ments to tolerance, she held on the 7th. Cont to hold until seen in office, Patient will see Dr. Felipe who will determine when she she should resume. Piqray literature reviewed, no reports of cardiotoxicity. She had no improvement in her symptoms after holding piqray last week. Less likely drug reaction. Her symptoms are improving with treatment. Patient will hold until she has completed her cardiology workup and been treated for congestive heart failure. Bone mets-known, started new treatment in the last month, has not been on treatment long enough for changes to be noted Follow-up with Dr. 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
[2019-08-31 16:47] LABS: Glucose,Whole Blood 161 mg/dL (75-99)
[2019-08-31 20:14] LABS: Glucose,Whole Blood 165 mg/dL (75-99)
[2019-09-01 06:09] LABS: Glucose,Whole Blood 133 mg/dL (75-99)
[2019-09-01] MEDS: LEVOTHYROXINE 125 MCG TAB PO SCH (06:33)
[2019-09-01] MEDS: glipiZIDE 10 MG TAB PO SCH ×2 (06:33→17:41)
[2019-09-01] MEDS: INSULIN ASPART (NovoLOG) 100 UNIT/ML VIAL SQ SCH ×4 (06:33→20:46)
[2019-09-01 06:57] LABS: Calcium 8.8 mg/dL (8.4-10.2); Potassium 4.9 mmol/L (3.5-5.1)
--- NOTE | 2019-09-01 08:25 | P.PN ---
Subjective Patient is a 69-year-old female with a known history of recently diagnosed breast cancer with bone metastasis currently on hormonal therapy presents to ER with the complaints of leg swelling and increased short of breath for the past 2 weeks. Patient was seen at her oncologist office today for injections and was found to have low oxygenation. Patient was advised to go to ER. Denied any history of prior coronary artery disease or congestive heart failure. Patient does have worsening exertional short of breath. Denied any chest pain. No f ever no chills. No cough or sputum production. No nausea vomiting abdominal pain or diarrhea. No headache or dizziness or lightheadedness. EKG performed at 1058: EKG shows normal sinus rhythm at 93 bpm. MO interval 172. QRS 86 QT/QTC 358/445. No acute ST change. BNP 1090 Chest x-ray showed new fluid overload with to moderate interstitial pulmonary edema and trace bilateral pleural effusions. Bibasilar airspace disease likely represent atelectasis WBC 7.6, hemoglobin 13.2 Troponin 2 negative Blood sugar 246 08/28/2019 Patient is currently sitting in the chair comfortably. Saturating well on room air. Currently being continued on IV Lasix every 8 hourly 40 mg. Chest x-ray showed improvement in volume status. Bilateral Leg swelling is improving as well. 2-D echocardiogram showed myelitis stenosis. Normal EF. Cardiology has seen the patient. Patient was also seen by oncology. Patient is found to have elevated d-dimer level which could be due to acute CHF. Patient is currently not hypoxic or tachycardic. No headache or dizziness or lightheadedness. No asymmetric leg swelling. No complains of chest pain or pleuritic chest pain. No shortness of breath. No fever no chills. No dysuria or hematuria. 08/29/2019 Patient is currently awake and stable to sit in the chair comfortably. Currently requiring oxygen via nasal cannula. Patient was found to have elevated d-dimer. Creatinine level increased to 2 today likely due to hypotension and diaphoresis. Blood pressure is in the 90s this morning. Due to elevated creatinine level, VQ scan was ordered to rule out pulmonary embolism. Showed low probability for PE. Lasix has been discontinued and patient was started on gentle hydration. Monitor renal function closely. Cardiology and oncology is on board. Patient denied any complaints of chest pain or shortness of breath. Leg swelling is still present. 08/30/2019 Patient is currently less confused and is able to sit on the side of the bed comfortably. Denied any worsening shortness of breath. Able to ambulate to the bathroom. Currently saturating well on 2 L oxygen with another cannula. Blood pressure on the lower side. VQ scan showed low probability for PE. Creatinine level improved to 1.86 today. Lasix was changed to 40 mg daily. IV fluids have been discontinued. Hemoglobin 9.7. Patient has been afebrile. Bibasilar diminished air entry and minimal crackles present. Mild improvement in leg swelling as well. 08/31/2019 Patient is fully awake and oriented, at bedside. No chest pain. Her dyspnea is significantly improved since admission however patient oxygen is still dropping easily, for example last night dropped to 80s however this morning she saturating 100% oxygen via nasal cannula. Her creatinine came back close to normal at 1.08 compared to 2 upon admission, her abdomen was stopped and currently she is on oral Lasix. Her d-dimer was elevated however she had low probability for pulmonary embolism by VQ scan. Patient also has some redness, tenderness in the back of her left lower leg, could be related to cellulitis. We'll do ultrasound to rule out DVT. Also we'll start the patient on ceftriaxone and monitor the area Also patient complains from left hip pain and she agrees for x-ray 09/01/2019 Patient is awake and oriented, his breathing is quiet, no respiratory distress, no coughing, no chest pain,, cardiology evaluated the patient for diastolic CHF and already cleared her for discharge, patient is also follow up with oncology for metastatic breast cancer with chest x-ray showing metastatic lesion, patient was complaining of from left hip area pain, hip/pelvic x-ray showing bone metastasis to the pelvic and left inferior pubic ramus, patient has been at bedside informed about this new finding and they verbalized understanding and they going to follow up with the oncology team, patient is still complaining from cellulitis behind left lower leg, the area is red, tender and warm, the area looks similar to yesterday with no worsening or improvement, Doppler of the lower extremities negative for DVT, legs are swollen and we will add Lasix for a few doses, we will change antibiotics from subtraction to cefazolin, patient and updated with both and they verbalized understanding Discussed with staff for is planned, we'll add 2 more doses of Lasix and patient can be transferred to the general medical floor Objective - Vital Signs Vital signs: Vital Signs Temp 97.8 F 09/01/19 05:01 Pulse 71 09/01/19 05:01 Resp 16 09/01/19 05:01 BP 123/72 09/01/19 05:01 Pulse Ox 97 09/01/19 05:01 Intake & Output 08/31/19 09/01/19 09/01/19 18:59 06:59 18:59 Intake Total 1650 Output Total 1580 880 Balance 70 -880 Weight 107.7 kg Intake: Intake, IV Titration 450 Amount Magnesium Sulfate-D5w Pmx 200 1 gm In Dextrose/Water 1 100ml.bag @ 100 mls/hr IVPB Q1H [facility] Rx#: [id number] Sodium Chloride 0.9% 1, 200 000 ml @ 75 mls/hr IV . [id number] [facility] Rx#:[id number] cefTRIAXone 1 gm In 50 Sodium Chloride 0.9% 50 ml @ 100 mls/hr IVPB Q24HR [facility] Rx#:[id number] Oral 1200 Output: Urine 1580 880 Other: Voiding Method Toilet Toilet # Voids 1 1 - Exam Patient is lying in the bed comfortably, no acute distress, awake alert and oriented. Morbid obese. HEENT: Normocephalic. Neck is supple. Pupils reactive. Nostrils clear. Oral cavity is moist. Ears reveal no drainage. Neck reveals no JVD, carotid bruits, or thyromegaly. CHEST EXAMINATION: Trachea is central. Symmetrical expansion. Bibasilar diminished air entry. Lung mojica clear to auscultation and percussion. CARDIAC: Normal S1, S2 with no gallops. No murmurs ABDOMEN: Soft. Bowel sounds normal. No organomegaly. No abdominal bruits. Extremities: Bilateral 2+ pedal edema. No clubbing or cyanosis Neurologically awake, alert, oriented x3 with well-coordinated movements. No focal deficits noted Skin: No rash or skin lesions. Psychiatric: Coperative. Nonsuicidal Musculoskeletal: No joint swelling or deformity. Normal range of motion. - Labs CBC & Chem 7: 08/31/19 05:55 09/01/19 06:04 Labs: Abnormal Lab Results - Last 24 Hours (Table) 08/31/19 08/31/19 08/31/19 Range/Units 11:36 16:45 20:12 Sodium (137-145) mmol/L BUN (7-17) mg/dL Glucose (74-99) mg/dL POC Glucose (mg/dL) 164 H 161 H 165 H (75-99) mg/dL 09/01/19 09/01/19 Range/Units 06:04 06:08 Sodium 136 L (137-145) mmol/L BUN 32 H (7-17) mg/dL Glucose 133 H (74-99) mg/dL POC Glucose (mg/dL) 133 H (75-99) mg/dL Assessment and Plan Assessment: Cellulitis of the left leg Metastasis breast cancer, metastatic to the lung and bone, hip/pelvic x-ray showing left inferior pubic ramus metastases Shortness of breath secondary to acute CHF with diastolic dysfunction.. Ejection fraction normal improved Acute hypoxic respiratory failure secondary to above. Also secondary to metastatic lung disease Improved. Currently on oxygen via nasal cannula. Acute kidney injury due to hypotension and decreased renal perfusion. Possible ATN. Improved and back close to normal Recently diagnosed breast cancer with bony metastasis. Currently on followup with oncology. Previous history of smoking Hypertension Hyperglycemia with uncontrolled Diabetes type 2. A1c 10.5 Hypothyroidism GERD Morbid obesity with BMI 46.3 Plan: This is a pleasant 69 years old female who presents with diastolic CHF and metastatic breast cancer disease to the lung affecting her breathing and now she has cellulitis of the left leg. IV fluids stopped, currently she is on Lasix orally, continue with Lasix and aspirin. Monitor oxygen level. Monitor kidney function. The patient and has been on bedside confirmed to me that they're aware of follow-up appointment with Dr. zambrano they have been formation of appointments including the timing and dates and contact information at home that she passed follow-up. Also start the patient on cefazolin and monitor her left leg cellulitis. The leg is demarcated, discussed with staff. Labs and medication were reviewed.. Continue same treatment. Continue with symptomatic treatment. Resume home medication. Monitor lytes and vitals. DVT and GI prophylaxis. Further recommendations of the clinical course of the patient DVT prophylaxis: Subcutaneous heparin GI Prophylaxis: Pepcid PT/OT: Pending Prognosis is guarded
[2019-09-01] MEDS: GABAPENTIN 400 MG CAP PO SCH ×4 (09:17→20:53)
[2019-09-01] MEDS: traMADol 50 MG TAB PO PRN ×3 (09:17→22:37)
[2019-09-01] MEDS: ASPIRIN 81 MG PO SCH (09:18)
[2019-09-01] MEDS: FUROSEMIDE 10 MG/ML 4 ML VIAL IV SCH (09:18)
[2019-09-01] MEDS: FUROSEMIDE 40 MG TAB PO SCH (09:18)
[2019-09-01] MEDS: LISINOPRIL 2.5 MG TAB PO SCH (09:18)
[2019-09-01] MEDS: ATENOLOL 25 MG TAB PO SCH (09:18)
[2019-09-01] MEDS: HEPARIN SODIUM,PORCINE 5,000 UNIT/ML 1 ML VIAL SQ SCH ×3 (09:19→22:37)
[2019-09-01 11:52] LABS: Glucose,Whole Blood 233 mg/dL (75-99)
--- NOTE | 2019-09-01 12:43 | P.PN ---
Subjective Progress Note Date: 09/01/19 Principal diagnosis: Heart failure with preserved LV function This is a 69-year-old female patient with diabetes, hypertension, history of smoking, was admitted to the hospital with increasing shortness of breath without any symptoms of chest pain or chest discomfort. The patient was diagnosed with heart failure. The echo revealed normal left ventricular systolic function was evidence of mild aortic stenosis, mild mitral regurgitation, and mild tricuspid regurgitation The patient was seen today, September [id number]. She stated that she is feeling better in term of shortness of breath.No chest pain or chest discomfort. She continues to be on oral diuretics. From a cardiac vascular standpoint of view, she might be able to be discharged in the next 24 hours. Objective - Vital Signs Vital signs: Vital Signs Temp 98.2 F 09/01/19 08:00 Pulse 78 09/01/19 08:00 Resp 16 09/01/19 12:00 BP 140/65 09/01/19 08:00 Pulse Ox 98 09/01/19 08:00 Intake & Output 08/31/19 09/01/19 09/01/19 18:59 06:59 18:59 Intake Total 1650 Output Total 1580 880 Balance 70 -880 Weight 107.7 kg Intake: Intake, IV Titration 450 Amount Magnesium Sulfate-D5w Pmx 200 1 gm In Dextrose/Water 1 100ml.bag @ 100 mls/hr IVPB Q1H [facility] Rx#: [id number] Sodium Chloride 0.9% 1, 200 000 ml @ 75 mls/hr IV . [id number] [facility] Rx#:[id number] cefTRIAXone 1 gm In 50 Sodium Chloride 0.9% 50 ml @ 100 mls/hr IVPB Q24HR [facility] Rx#:[id number] Oral 1200 Output: Urine 1580 880 Other: Voiding Method Toilet Toilet Toilet # Voids 1 1 - Constitutional General appearance: Present: no acute distress - Respiratory Respiratory: bilateral: diminished - Cardiovascular Heart sounds: normal: S1, S2 - Labs CBC & Chem 7: 08/31/19 05:55 09/01/19 06:04 Labs: Abnormal Lab Results - Last 24 Hours (Table) 08/31/19 08/31/19 09/01/19 Range/Units 16:45 20:12 06:04 Sodium 136 L (137-145) mmol/L BUN 32 H (7-17) mg/dL Glucose 133 H (74-99) mg/dL POC Glucose (mg/dL) 161 H 165 H (75-99) mg/dL 09/01/19 09/01/19 Range/Units 06:08 11:50 Sodium (137-145) mmol/L BUN (7-17) mg/dL Glucose (74-99) mg/dL POC Glucose (mg/dL) 133 H 233 H (75-99) mg/dL Assessment and Plan Assessment: Assessment Heart failure with preserved LV function, acute on chronic Mild aortic stenosis Hypertension History of breast cancer Plan The patient seems to be euvolemic Continue the current medical regimen Possible discharge home in the next 24 hours
[2019-09-01] MEDS: TRIAMCINOLONE ACET 0.1% OINTMENT 15 GM TUBE TOPICAL SCH (16:39)
[2019-09-01] MEDS: MUPIROCIN 2% OINT 22 GM TUBE TOPICAL SCH ×3 (16:39→20:53)
[2019-09-01] MEDS: NYSTATIN 100,000UNIT/GM CREAM 30 GM TUBE TOPICAL SCH (16:39)
[2019-09-01 16:57] LABS: Glucose,Whole Blood 118 mg/dL (75-99)
[2019-09-01 20:22] LABS: Glucose,Whole Blood 129 mg/dL (75-99)
[2019-09-02] MEDS: traMADol 50 MG TAB PO PRN ×4 (05:15→23:36)
[2019-09-02 06:00] LABS: Glucose,Whole Blood 144 mg/dL (75-99)
[2019-09-02] MEDS: INSULIN ASPART (NovoLOG) 100 UNIT/ML VIAL SQ SCH ×4 (06:54→21:07)
[2019-09-02] MEDS: glipiZIDE 10 MG TAB PO SCH ×2 (06:56→17:21)
[2019-09-02] MEDS: LEVOTHYROXINE 125 MCG TAB PO SCH (06:56)
[2019-09-02 06:59] LABS: Calcium 8.7 mg/dL (8.4-10.2); Potassium 4.6 mmol/L (3.5-5.1)
[2019-09-02] MEDS: FUROSEMIDE 10 MG/ML 4 ML VIAL IV SCH (08:30)
[2019-09-02] MEDS: ASPIRIN 81 MG PO SCH (08:31)
[2019-09-02] MEDS: GABAPENTIN 400 MG CAP PO SCH ×4 (08:31→21:06)
[2019-09-02] MEDS: ATENOLOL 25 MG TAB PO SCH (08:31)
[2019-09-02] MEDS: LISINOPRIL 2.5 MG TAB PO SCH (08:31)
[2019-09-02] MEDS: HEPARIN SODIUM,PORCINE 5,000 UNIT/ML 1 ML VIAL SQ SCH ×3 (08:31→23:34)
[2019-09-02] MEDS: MUPIROCIN 2% OINT 22 GM TUBE TOPICAL SCH ×3 (08:32→21:09)
[2019-09-02] MEDS: NYSTATIN 100,000UNIT/GM CREAM 30 GM TUBE TOPICAL SCH (08:32)
[2019-09-02] MEDS: TRIAMCINOLONE ACET 0.1% OINTMENT 15 GM TUBE TOPICAL SCH (08:32)
[2019-09-02] MEDS: FUROSEMIDE 40 MG TAB PO SCH (08:34)
--- NOTE | 2019-09-02 09:00 | P.PN ---
Subjective Patient is a 69-year-old female with a known history of recently diagnosed breast cancer with bone metastasis currently on hormonal therapy presents to ER with the complaints of leg swelling and increased short of breath for the past 2 weeks. Patient was seen at her oncologist office today for injections and was found to have low oxygenation. Patient was advised to go to ER. Denied any history of prior coronary artery disease or congestive heart failure. Patient does have worsening exertional short of breath. Denied any chest pain. No f ever no chills. No cough or sputum production. No nausea vomiting abdominal pain or diarrhea. No headache or dizziness or lightheadedness. EKG performed at 1058: EKG shows normal sinus rhythm at 93 bpm. MT interval 172. QRS 86 QT/QTC 358/445. No acute ST change. BNP 1090 Chest x-ray showed new fluid overload with to moderate interstitial pulmonary edema and trace bilateral pleural effusions. Bibasilar airspace disease likely represent atelectasis WBC 7.6, hemoglobin 13.2 Troponin 2 negative Blood sugar 246 08/28/2019 Patient is currently sitting in the chair comfortably. Saturating well on room air. Currently being continued on IV Lasix every 8 hourly 40 mg. Chest x-ray showed improvement in volume status. Bilateral Leg swelling is improving as well. 2-D echocardiogram showed myelitis stenosis. Normal EF. Cardiology has seen the patient. Patient was also seen by oncology. Patient is found to have elevated d-dimer level which could be due to acute CHF. Patient is currently not hypoxic or tachycardic. No headache or dizziness or lightheadedness. No asymmetric leg swelling. No complains of chest pain or pleuritic chest pain. No shortness of breath. No fever no chills. No dysuria or hematuria. 08/29/2019 Patient is currently awake and stable to sit in the chair comfortably. Currently requiring oxygen via nasal cannula. Patient was found to have elevated d-dimer. Creatinine level increased to 2 today likely due to hypotension and diaphoresis. Blood pressure is in the 90s this morning. Due to elevated creatinine level, VQ scan was ordered to rule out pulmonary embolism. Showed low probability for PE. Lasix has been discontinued and patient was started on gentle hydration. Monitor renal function closely. Cardiology and oncology is on board. Patient denied any complaints of chest pain or shortness of breath. Leg swelling is still present. 08/30/2019 Patient is currently less confused and is able to sit on the side of the bed comfortably. Denied any worsening shortness of breath. Able to ambulate to the bathroom. Currently saturating well on 2 L oxygen with another cannula. Blood pressure on the lower side. VQ scan showed low probability for PE. Creatinine level improved to 1.86 today. Lasix was changed to 40 mg daily. IV fluids have been discontinued. Hemoglobin 9.7. Patient has been afebrile. Bibasilar diminished air entry and minimal crackles present. Mild improvement in leg swelling as well. 08/31/2019 Patient is fully awake and oriented, at bedside. No chest pain. Her dyspnea is significantly improved since admission however patient oxygen is still dropping easily, for example last night dropped to 80s however this morning she saturating 100% oxygen via nasal cannula. Her creatinine came back close to normal at 1.08 compared to 2 upon admission, her abdomen was stopped and currently she is on oral Lasix. Her d-dimer was elevated however she had low probability for pulmonary embolism by VQ scan. Patient also has some redness, tenderness in the back of her left lower leg, could be related to cellulitis. We'll do ultrasound to rule out DVT. Also we'll start the patient on ceftriaxone and monitor the area Also patient complains from left hip pain and she agrees for x-ray 09/01/2019 Patient is awake and oriented, his breathing is quiet, no respiratory distress, no coughing, no chest pain,, cardiology evaluated the patient for diastolic CHF and already cleared her for discharge, patient is also follow up with oncology for metastatic breast cancer with chest x-ray showing metastatic lesion, patient was complaining of from left hip area pain, hip/pelvic x-ray showing bone metastasis to the pelvic and left inferior pubic ramus, patient has been at bedside informed about this new finding and they verbalized understanding and they going to follow up with the oncology team, patient is still complaining from cellulitis behind left lower leg, the area is red, tender and warm, the area looks similar to yesterday with no worsening or improvement, Doppler of the lower extremities negative for DVT, legs are swollen and we will add Lasix for a few doses, we will change antibiotics from subtraction to cefazolin, patient and updated with both and they verbalized understanding Discussed with staff for is planned, we'll add 2 more doses of Lasix and patient can be transferred to the general medical floor 09/02/19 Patient cellulitis in her left leg are significantly improved, by 50% approximately with less redness, swelling, tenderness and redness, Elvis wrap is in place. However patient being diabetic we will keep patient monitoring and if she keeps improvement by tomorrow we can discharge her on oral antibiotics. Patient agrees to [facility] for now. vitals are stable. Afebrile. Creatinine is stable at 1.07. Sugar controlled. Possible discharge in 24-48 hours and if keep improvement Objective - Vital Signs Vital signs: Vital Signs Temp 98.0 F 09/02/19 08:25 Pulse 72 09/02/19 08:25 Resp 16 09/02/19 05:18 BP 114/57 09/02/19 08:25 Pulse Ox 91 L 09/02/19 08:25 Intake & Output 09/01/19 09/02/19 09/02/19 18:59 06:59 18:59 Intake Total 620 Output Total 2300 300 Balance -1680 -300 Weight 107 kg Intake: Intake, IV Titration 200 Amount ceFAZolin 2 gm In Sodium 200 Chloride 0.9% 50 ml @ 100 mls/hr IVPB Q8HR [facility] Rx# :[id number] Oral 420 Output: Urine 2300 300 Other: Voiding Method Toilet # Voids 1 - Exam Patient is lying in the bed comfortably, no acute distress, awake alert and oriented. Morbid obese. HEENT: Normocephalic. Neck is supple. Pupils reactive. Nostrils clear. Oral cavity is moist. Ears reveal no drainage. Neck reveals no JVD, carotid bruits, or thyromegaly. CHEST EXAMINATION: Trachea is central. Symmetrical expansion. Bibasilar diminished air entry. Lung mojica clear to auscultation and percussion. CARDIAC: Normal S1, S2 with no gallops. No murmurs ABDOMEN: Soft. Bowel sounds normal. No organomegaly. No abdominal bruits. Extremities: Bilateral 2+ pedal edema. No clubbing or cyanosis Neurologically awake, alert, oriented x3 with well-coordinated movements. No focal deficits noted Skin: No rash or skin lesions. Psychiatric: Coperative. Nonsuicidal Musculoskeletal: No joint swelling or deformity. Normal range of motion. - Labs CBC & Chem 7: 08/31/19 05:55 09/02/19 06:11 Labs: Abnormal Lab Results - Last 24 Hours (Table) 09/01/19 09/01/19 09/01/19 Range/Units 11:50 16:56 20:20 Carbon Dioxide (22-30) mmol/L BUN (7-17) mg/dL Creatinine (0.52-1.04) mg/dL Glucose (74-99) mg/dL POC Glucose (mg/dL) 233 H 118 H 129 H (75-99) mg/dL 09/02/19 09/02/19 Range/Units 05:58 06:11 Carbon Dioxide 31 H (22-30) mmol/L BUN 27 H (7-17) mg/dL Creatinine 1.07 H (0.52-1.04) mg/dL Glucose 141 H (74-99) mg/dL POC Glucose (mg/dL) 144 H (75-99) mg/dL Assessment and Plan Assessment: Cellulitis of the left leg Metastasis breast cancer, metastatic to the lung and bone, hip/pelvic x-ray showing left inferior pubic ramus metastases Shortness of breath secondary to acute CHF with diastolic dysfunction.. Ejection fraction normal improved Acute hypoxic respiratory failure secondary to above. Also secondary to metastatic lung disease Improved. Currently on oxygen via nasal cannula. Acute kidney injury due to hypotension and decreased renal perfusion. Possible ATN. Improved and back close to normal Recently diagnosed breast cancer with bony metastasis. Currently on followup with oncology. Previous history of smoking Hypertension Hyperglycemia with uncontrolled Diabetes type 2. A1c 10.5 Hypothyroidism GERD Morbid obesity with BMI 46.3 Plan: This is a pleasant 69 years old female who presents with diastolic CHF and metastatic breast cancer disease to the lung affecting her breathing and now she has cellulitis of the left leg. IV fluids stopped, currently she is on Lasix orally, continue with Lasix and aspirin. Monitor oxygen level. Monitor kidney function. The patient and has been on bedside confirmed to me that they're aware of follow-up appointment with Dr. zambrano they have been formation of appointments including the timing and dates and contact information at home that she passed follow-up. Also start the patient on cefazolin and monitor her left leg cellulitis. The leg is demarcated, discussed with staff. Labs and medication were reviewed.. Continue same treatment. Continue with symptomatic treatment. Resume home medication. Monitor lytes and vitals. DVT and GI prophylaxis. Further recommendations of the clinical course of the patient DVT prophylaxis: Subcutaneous heparin GI Prophylaxis: Pepcid PT/OT: Pending Prognosis is guarded
[2019-09-02 11:28] LABS: Glucose,Whole Blood 149 mg/dL (75-99)
--- NOTE | 2019-09-02 12:12 | P.PN ---
Subjective Progress Note Date: 09/02/19 This is a pleasant 69-year-old female with history of diabetes, hypertension, nicotine dependence, admitted to the hospital with symptoms of shortness of breath and diagnosed with congestive heart failure, diastolic acute on chronic. She was seen and examined this morning, overall is doing signi ficantly better. She is currently on oral diuretics. Blood pressure 114/60 with a heart rate in the 70s, 98% on room air. Sodium 137, potassium 4.6, BUN 27, creatinine 1.0. Objective - Vital Signs Vital signs: Vital Signs Temp 98.0 F 09/02/19 08:25 Pulse 67 09/02/19 11:12 Resp 16 09/02/19 11:12 BP 147/60 09/02/19 11:12 Pulse Ox 98 09/02/19 11:12 Intake & Output 09/01/19 09/02/19 09/02/19 18:59 06:59 18:59 Intake Total 620 280 Output Total 2300 300 700 Balance -1680 -300 -420 Weight 107 kg Intake: Intake, IV Titration 200 100 Amount ceFAZolin 2 gm In Sodium 200 100 Chloride 0.9% 50 ml @ 100 mls/hr IVPB Q8HR [facility] Rx# :[id number] Oral 420 180 Output: Urine 2300 300 700 Other: Voiding Method Toilet # Voids 1 - Exam PHYSICAL EXAMINATION: GENERAL: 69-year-old female in no acute distress at the time of my examination HEENT: Head is atraumatic, normocephalic. Pupils equal, round. Sclera anicteric. Conjunctiva are clear. Mucous membranes of the mouth are moist. Neck is supple. There is no elevated jugular venous pressure. No carotid bruit is heard. HEART EXAMINATION: Heart S1, S2 normal. No murmur or gallop heard. CHEST EXAMINATION: His reveal diminished air entry to bilateral bases. ABDOMEN: Soft, nontender. Bowel sounds are heard. No organomegaly noted. EXTREMITIES: 2+ peripheral pulses with no evidence of peripheral edema and no calf tenderness noted. NEUROLOGIC patient is awake, alert and oriented 3 . . - Labs CBC & Chem 7: 08/31/19 05:55 09/02/19 06:11 Labs: Abnormal Lab Results - Last 24 Hours (Table) 09/01/19 09/01/19 09/02/19 Range/Units 16:56 20:20 05:58 Carbon Dioxide (22-30) mmol/L BUN (7-17) mg/dL Creatinine (0.52-1.04) mg/dL Glucose (74-99) mg/dL POC Glucose (mg/dL) 118 H 129 H 144 H (75-99) mg/dL 09/02/19 09/02/19 Range/Units 06:11 11:26 Carbon Dioxide 31 H (22-30) mmol/L BUN 27 H (7-17) mg/dL Creatinine 1.07 H (0.52-1.04) mg/dL Glucose 141 H (74-99) mg/dL POC Glucose (mg/dL) 149 H (75-99) mg/dL Assessment and Plan Plan: Assessment and plan #1 diastolic congestive heart failure acute on chronic #2 hypertension #3 history of breast cancer #4 mild aortic stenosis Plan From cardiology's perspective, patient may be able to be discharged home once cleared by primary. We will make her a follow-up appointment in the office post discharge. DNP note has been reviewed, I agree with a documented findings and plan of care. Patient was seen and examined.
[2019-09-02 17:03] LABS: Glucose,Whole Blood 138 mg/dL (75-99)
[2019-09-02 20:34] LABS: Glucose,Whole Blood 186 mg/dL (75-99)
[2019-09-03 06:01] LABS: Glucose,Whole Blood 138 mg/dL (75-99)
[2019-09-03] MEDS: INSULIN ASPART (NovoLOG) 100 UNIT/ML VIAL SQ SCH ×4 (06:03→20:51)
[2019-09-03] MEDS: glipiZIDE 10 MG TAB PO SCH ×2 (06:03→18:15)
[2019-09-03] MEDS: LEVOTHYROXINE 125 MCG TAB PO SCH (06:03)
[2019-09-03] MEDS: GABAPENTIN 400 MG CAP PO SCH ×4 (08:19→20:52)
[2019-09-03] MEDS: traMADol 50 MG TAB PO PRN ×2 (08:19→20:50)
[2019-09-03] MEDS: FUROSEMIDE 40 MG TAB PO SCH (08:21)
[2019-09-03] MEDS: ASPIRIN 81 MG PO SCH (08:21)
[2019-09-03] MEDS: TRIAMCINOLONE ACET 0.1% OINTMENT 15 GM TUBE TOPICAL SCH ×2 (08:21→08:22)
[2019-09-03] MEDS: ATENOLOL 25 MG TAB PO SCH (08:21)
[2019-09-03] MEDS: LISINOPRIL 2.5 MG TAB PO SCH (08:21)
[2019-09-03] MEDS: HEPARIN SODIUM,PORCINE 5,000 UNIT/ML 1 ML VIAL SQ SCH ×3 (08:21→23:34)
[2019-09-03] MEDS: MUPIROCIN 2% OINT 22 GM TUBE TOPICAL SCH ×3 (08:22→20:52)
[2019-09-03] MEDS: NYSTATIN 100,000UNIT/GM CREAM 30 GM TUBE TOPICAL SCH (08:28)
[2019-09-03] MEDS ORDERED: diphenhydrAMINE 50 MG CAP PO PRN (08:31)
--- NOTE | 2019-09-03 08:55 | P.PN ---
Subjective Patient is a 69-year-old female with a known history of recently diagnosed breast cancer with bone metastasis currently on hormonal therapy presents to ER with the complaints of leg swelling and increased short of breath for the past 2 weeks. Patient was seen at her oncologist office today for injections and was found to have low oxygenation. Patient was advised to go to ER. Denied any history of prior coronary artery disease or congestive heart failure. Patient does have worsening exertional short of breath. Denied any chest pain. No f ever no chills. No cough or sputum production. No nausea vomiting abdominal pain or diarrhea. No headache or dizziness or lightheadedness. EKG performed at 1058: EKG shows normal sinus rhythm at 93 bpm. FL interval 172. QRS 86 QT/QTC 358/445. No acute ST change. BNP 1090 Chest x-ray showed new fluid overload with to moderate interstitial pulmonary edema and trace bilateral pleural effusions. Bibasilar airspace disease likely represent atelectasis WBC 7.6, hemoglobin 13.2 Troponin 2 negative Blood sugar 246 08/28/2019 Patient is currently sitting in the chair comfortably. Saturating well on room air. Currently being continued on IV Lasix every 8 hourly 40 mg. Chest x-ray showed improvement in volume status. Bilateral Leg swelling is improving as well. 2-D echocardiogram showed myelitis stenosis. Normal EF. Cardiology has seen the patient. Patient was also seen by oncology. Patient is found to have elevated d-dimer level which could be due to acute CHF. Patient is currently not hypoxic or tachycardic. No headache or dizziness or lightheadedness. No asymmetric leg swelling. No complains of chest pain or pleuritic chest pain. No shortness of breath. No fever no chills. No dysuria or hematuria. 08/29/2019 Patient is currently awake and stable to sit in the chair comfortably. Currently requiring oxygen via nasal cannula. Patient was found to have elevated d-dimer. Creatinine level increased to 2 today likely due to hypotension and diaphoresis. Blood pressure is in the 90s this morning. Due to elevated creatinine level, VQ scan was ordered to rule out pulmonary embolism. Showed low probability for PE. Lasix has been discontinued and patient was started on gentle hydration. Monitor renal function closely. Cardiology and oncology is on board. Patient denied any complaints of chest pain or shortness of breath. Leg swelling is still present. 08/30/2019 Patient is currently less confused and is able to sit on the side of the bed comfortably. Denied any worsening shortness of breath. Able to ambulate to the bathroom. Currently saturating well on 2 L oxygen with another cannula. Blood pressure on the lower side. VQ scan showed low probability for PE. Creatinine level improved to 1.86 today. Lasix was changed to 40 mg daily. IV fluids have been discontinued. Hemoglobin 9.7. Patient has been afebrile. Bibasilar diminished air entry and minimal crackles present. Mild improvement in leg swelling as well. 08/31/2019 Patient is fully awake and oriented, at bedside. No chest pain. Her dyspnea is significantly improved since admission however patient oxygen is still dropping easily, for example last night dropped to 80s however this morning she saturating 100% oxygen via nasal cannula. Her creatinine came back close to normal at 1.08 compared to 2 upon admission, her abdomen was stopped and currently she is on oral Lasix. Her d-dimer was elevated however she had low probability for pulmonary embolism by VQ scan. Patient also has some redness, tenderness in the back of her left lower leg, could be related to cellulitis. We'll do ultrasound to rule out DVT. Also we'll start the patient on ceftriaxone and monitor the area Also patient complains from left hip pain and she agrees for x-ray 09/01/2019 Patient is awake and oriented, his breathing is quiet, no respiratory distress, no coughing, no chest pain,, cardiology evaluated the patient for diastolic CHF and already cleared her for discharge, patient is also follow up with oncology for metastatic breast cancer with chest x-ray showing metastatic lesion, patient was complaining of from left hip area pain, hip/pelvic x-ray showing bone metastasis to the pelvic and left inferior pubic ramus, patient has been at bedside informed about this new finding and they verbalized understanding and they going to follow up with the oncology team, patient is still complaining from cellulitis behind left lower leg, the area is red, tender and warm, the area looks similar to yesterday with no worsening or improvement, Doppler of the lower extremities negative for DVT, legs are swollen and we will add Lasix for a few doses, we will change antibiotics from subtraction to cefazolin, patient and updated with both and they verbalized understanding Discussed with staff for is planned, we'll add 2 more doses of Lasix and patient can be transferred to the general medical floor 09/02/19 Patient cellulitis in her left leg are significantly improved, by 50% approximately with less redness, swelling, tenderness and redness, Elvis wrap is in place. However patient being diabetic we will keep patient monitoring and if she keeps improvement by tomorrow we can discharge her on oral antibiotics. Patient agrees to [facility] for now. vitals are stable. Afebrile. Creatinine is stable at 1.07. Sugar controlled. Possible discharge in 24-48 hours and if keep improvement 09/03/2019 Patient left leg cellulitis is improving on cefazolin, she has less redness, less swelling and less tenderness however she still not completely resolved, it is mildly warm. She remains on cefazolin. Consult infectious disease for further evaluation Other than that she is doing well, no chest pain or dyspnea, she has mild pain in her hip area from metastatic bone lesion. Patient looks euvolemic and no need for IV fluids. She was tolerating diet well. at bedside and I discussed the updates with the patient and and they agree with the plan so far Objective - Vital Signs Vital signs: Vital Signs Temp 96.9 F L 09/03/19 08:00 Pulse 73 09/03/19 08:00 Resp 16 09/03/19 08:00 BP 108/55 09/03/19 08:00 Pulse Ox 98 09/02/19 23:00 Intake & Output 09/02/19 09/03/19 09/03/19 18:59 06:59 18:59 Intake Total 982 240 Output Total 1100 Balance -118 240 Weight 105.9 kg Intake: Intake, IV Titration 100 Amount ceFAZolin 2 gm In Sodium 100 Chloride 0.9% 50 ml @ 100 mls/hr IVPB Q8HR [facility] Rx# :[id number] Oral 882 240 Output: Urine 1100 Other: # Voids 1 - Exam Patient is lying in the bed comfortably, no acute distress, awake alert and oriented. Morbid obese. HEENT: Normocephalic. Neck is supple. Pupils reactive. Nostrils clear. Oral cavity is moist. Ears reveal no drainage. Neck reveals no JVD, carotid bruits, or thyromegaly. CHEST EXAMINATION: Trachea is central. Symmetrical expansion. Bibasilar diminished air entry. Lung mojica clear to auscultation and percussion. CARDIAC: Normal S1, S2 with no gallops. No murmurs ABDOMEN: Soft. Bowel sounds normal. No organomegaly. No abdominal bruits. Extremities: Bilateral 2+ pedal edema. No clubbing or cyanosis Neurologically awake, alert, oriented x3 with well-coordinated movements. No focal deficits noted Skin: No rash or skin lesions. Psychiatric: Coperative. Nonsuicidal Musculoskeletal: No joint swelling or deformity. Normal range of motion. - Labs CBC & Chem 7: 08/31/19 05:55 09/02/19 06:11 Labs: Abnormal Lab Results - Last 24 Hours (Table) 09/02/19 09/02/19 09/02/19 Range/Units 11:26 16:57 20:32 POC Glucose (mg/dL) 149 H 138 H 186 H (75-99) mg/dL 09/03/19 Range/Units 05:59 POC Glucose (mg/dL) 138 H (75-99) mg/dL Assessment and Plan Assessment: Cellulitis of the left leg Metastasis breast cancer, metastatic to the lung and bone, hip/pelvic x-ray showing left inferior pubic ramus metastases Shortness of breath secondary to acute CHF with diastolic dysfunction.. Ejection fraction normal improved Acute hypoxic respiratory failure secondary to above. Also secondary to metastatic lung disease Improved. Currently on oxygen via nasal cannula. Acute kidney injury due to hypotension and decreased renal perfusion. Possible ATN. Improved and back close to normal Recently diagnosed breast cancer with bony metastasis. Currently on followup with oncology. Previous history of smoking Hypertension Hyperglycemia with uncontrolled Diabetes type 2. A1c 10.5 Hypothyroidism GERD Morbid obesity with BMI 46.3 Plan: This is a pleasant 69 years old female who presents with diastolic CHF and metastatic breast cancer disease to the lung affecting her breathing and now she has cellulitis of the left leg. Consult infectious disease on follow-up recommendation IV fluids stopped, currently she is on Lasix orally, continue with Lasix and aspirin. Monitor oxygen level. Monitor kidney function. The patient and has been on bedside confirmed to me that they're aware of follow-up appointment with Dr. zambrano they have been formation of appointments including the timing and dates and contact information at home that she passed follow-up. Also start the patient on cefazolin and monitor her left leg cellulitis. The leg is demarcated, discussed with staff. Labs and medication were reviewed.. Continue same treatment. Continue with symptomatic treatment. Resume home medication. Monitor lytes and vitals. DVT and GI prophylaxis. Further recommendations of the clinical course of the patient DVT prophylaxis: Subcutaneous heparin GI Prophylaxis: Pepcid PT/OT: Pending Prognosis is guarded
--- NOTE | 2019-09-03 09:59 | P.PN ---
Subjective Progress Note Date: 09/03/19 Principal diagnosis: Heart failure with preserved LV function This is a 69-year-old female patient with diabetes, hypertension, history of smoking, was admitted to the hospital with increasing shortness of breath without any symptoms of chest pain or chest discomfort. The patient was diagnosed with heart failure. The echo revealed normal left ventricular systolic function was evidence of mild aortic stenosis, mild mitral regurgitation, and mild tricuspid regurgitation The patient was seen today, 09/03/2019. She stated that the shortness of breath has improved. No symptoms of chest pain or chest discomfort. She is on oral diuretics. From a cardiovascular standpoint of view, the patient can be discharged home Objective - Vital Signs Vital signs: Vital Signs Temp 96.9 F L 09/03/19 08:00 Pulse 73 09/03/19 08:00 Resp 16 09/03/19 08:00 BP 108/55 09/03/19 08:00 Pulse Ox 98 09/02/19 23:00 Intake & Output 09/02/19 09/03/19 09/03/19 18:59 06:59 18:59 Intake Total 982 240 Output Total 1100 Balance -118 240 Weight 105.9 kg Intake: Intake, IV Titration 100 Amount ceFAZolin 2 gm In Sodium 100 Chloride 0.9% 50 ml @ 100 mls/hr IVPB Q8HR [facility] Rx# :[id number] Oral 882 240 Output: Urine 1100 Other: # Voids 1 - Constitutional General appearance: Present: no acute distress - Respiratory Respiratory: bilateral: diminished - Cardiovascular Heart sounds: normal: S1, S2 - Labs CBC & Chem 7: 08/31/19 05:55 09/02/19 06:11 Labs: Abnormal Lab Results - Last 24 Hours (Table) 09/02/19 09/02/19 09/02/19 Range/Units 11:26 16:57 20:32 POC Glucose (mg/dL) 149 H 138 H 186 H (75-99) mg/dL 09/03/19 Range/Units 05:59 POC Glucose (mg/dL) 138 H (75-99) mg/dL Assessment and Plan Assessment: Assessment Heart failure with preserved LV function, acute on chronic Mild aortic stenosis Hypertension History of breast cancer Plan The patient seems to be euvolemic Continue the current medical regimen Possible discharge home today
[2019-09-03 11:56] LABS: Glucose,Whole Blood 171 mg/dL (75-99)
[2019-09-03 14:02] VITALS: BMI 44.1
[2019-09-03 16:45] LABS: Glucose,Whole Blood 109 mg/dL (75-99)
[2019-09-03] MEDS: TRIAMCINOLONE 0.1% CREAM 80 GM TUBE TOPICAL SCH (18:07)
[2019-09-03 20:40] LABS: Glucose,Whole Blood 185 mg/dL (75-99)
--- NOTE | 2019-09-04 00:12 | P.CONS ---
History of Present Illness - Reason for Consult Consult date: 09/03/19 Left lower extremity cellulitis Requesting physician: Santo E Sheet - Chief Complaint Erythema and swelling to the left posterior leg x few days - History of Present Illness Patient is a 69 year female presenting to the ER on 08/27/2019 chief complaints of any severe shortness of breath that has been getting worse over few days before the patient was in hospital in addition to lower extremity swelling patient denies any chest pain or cough she did not have any fever or elevated white count patient has been diagnosed with congestive heart failure and has been treated with diuretics patient also noticed to have a erythematous rash to the left posterior leg over the last few days for the patient has been diagnosed with cellulitisand has been treated with cefazolin 2 g every 8 hours however the patient did not have significant improvement has infectious disease was consulted for further recommendation, patient denies any trauma to the left posterior leg area, patient may symptom remains to be discomfort and itching to the left posterior leg as well as to the right hand dorsum for the same duration patient currently with no skin breakdown or any drainage denies previously similar history and no rash or redness to the right leg, the patient denies having any fever or any chills and no diarrhea with antibiotic therapy Review of Systems Positive point has been mentioned in the HPI rest of the systems are negative Past Medical History Past Medical History: Cancer, Diabetes Mellitus, GERD/Reflux, Hypertension, Thyroid Disorder Additional Past Medical History / Comment(s): recent breast cancer diagnosis. Bone metastasis mar 2019 states dx shingles, and has vision left eye issues History of Any Multi-Drug Resistant Organisms: None Reported Past Surgical History: No Surgical Hx Reported Additional Past Surgical History / Comment(s): PORT INSERTION. cardiac cathet erization Past Anesthesia/Blood Transfusion Reactions: No Reported Reaction Additional Past Anesthesia/Blood Transfusion Reaction / Comm: no previous anesthesia Past Psychological History: No Psychological Hx Reported Smoking Status: Former smoker Past Alcohol Use History: None Reported Past Drug Use History: None Reported - Past Family History Mother Family Medical History: Blood Disorder Additional Family Medical History / Comment(s): blood clots Sister(s) Family Medical History: Blood Disorder Additional Family Medical History / Comment(s): blood clots Daughter(s) Family Medical History: Blood Disorder Additional Family Medical History / Comment(s): blood clots Medications and Allergies Home Medications Medication Instructions Recorded Confirmed Type Atenolol [Tenormin] 25 mg PO DAILY 09/16/14 08/27/19 History Enalapril Maleate 10 mg PO DAILY 09/16/14 08/27/19 History Insulin Lispro [humaLOG Kwikpen] See Protocol SQ AC-TID 09/16/14 08/27/19 History Levothyroxine Sodium [Synthroid] 125 mcg PO DAILY 09/16/14 08/27/19 History metFORMIN HCL 1,000 mg PO AC-BID 09/16/14 08/27/19 History Omeprazole [PriLOSEC] 20 mg PO DAILY PRN 06/19/17 08/27/19 History traMADol HCL [Ultram] 100 mg PO Q6H PRN 06/19/17 08/27/19 History Gabapentin [Neurontin] 400 mg PO QID 08/27/19 08/27/19 History Mometasone Furoate [Elocon 1 applic TOPICAL DAILY 08/27/19 08/27/19 History Ointment] Mupirocin Calcium 2% Cream 1 applic TOPICAL TID 08/27/19 08/27/19 History [Bactroban 2% Cream] Nystatin 100,000Unit/gm Cream 1 applic TOPICAL DAILY 08/27/19 08/27/19 History [Mycostatin Cream] glipiZIDE [Glucotrol] 10 mg PO AC-BID 08/27/19 08/27/19 History Allergies Allergy/AdvReac Type Severity Reaction Status Date / Time anastrozole Allergy Unknown Verified 08/27/19 11:25 ciprofloxacin [From Cipro] Allergy Unknown Verified 08/27/19 11:25 ibuprofen Allergy Swelling Verified 08/27/19 11:25 Iodinated Contrast Media Allergy Rash/Hives Verified 08/27/19 11:25 [Iodinated Contrast Media - IV Dye] Physical Exam Vitals: Vital Signs Temp Pulse Resp BP BP Pulse Ox 09/03/19 23:55 81 18 09/03/19 23:20 97.4 F L 81 18 124/66 95 09/03/19 21:03 98.0 F 71 16 138/62 97 09/03/19 16:00 16 09/03/19 08:00 96.9 F L 73 16 108/55 Intake and Output 09/03/19 09/03/19 09/04/19 14:59 22:59 06:59 Intake Total 531 120 Output Total 250 150 Balance 531 -130 -150 Intake: Intake, IV Titration 51 Amount ceFAZolin 2 gm In Sodium 51 Chloride 0.9% 50 ml @ 100 mls/hr IVPB Q8HR [facility] Rx# :[id number] Oral 480 120 Output: Urine 250 150 Other: Voiding Method Toilet Toilet Toilet # Voids 0 1 1 # Bowel Movements 0 0 Weight 105.9 kg GENERAL DESCRIPTION: Elderly female lying in bed, no distress. No tachypnea or accessory muscle of respiration use. HEENT: Shows Pallor , no scleral icterus. Oral mucous membrane is dry. No pharyngeal erythema or thrush NECK: Trachea central, no thyromegaly. LUNGS: Unlabored breathing. Decreased breath sound the bases. No wheeze or crackle. HEART: S1, S2, regular rate and rhythm. No loud murmur ABDOMEN: Soft, no tenderness , guarding or rigidity, no organomegaly EXTREMITIES: One plus edema of feet. SKIN: Erythematous rash to the left posterior leg and dorsum aspect of the right hand NEUROLOGICAL: The patient is awake, alert, oriented x3, mood and affect normal. Results CBC & Chem 7: 08/31/19 05:55 09/02/19 06:11 Labs: Abnormal Lab Results - Last 24 Hours (Table) 09/03/19 09/03/19 09/03/19 Range/Units 05:59 11:54 16:43 POC Glucose (mg/dL) 138 H 171 H 109 H (75-99) mg/dL 09/03/19 Range/Units 20:38 POC Glucose (mg/dL) 185 H (75-99) mg/dL Assessment and Plan Assessment: 1-patient is 69 year female presented to hospital with increasing shortness of breath in this patient did have evidence of congestive heart failure A she did have diffuse swelling to the legs and did have difficulty erythematous patch to the left posterior leg and dorsum aspect of the right hand that has failed to respond to the cefazolin which is more of a contact/fungal dermatitis Plan: 1-we will apply Mycolog cream to the left posterior leg and right hand dorsum twice daily 2-apply Elvis wrap to the leg from just above the toe to below the knee to keep the swelling down It the patient did show overall improvement with the Mycolog cream she can be able to go home to continue with the Mycolog cream and ELVIS wrap as advised and close outpatient follow-up Time with Patient: Greater than 30
[2019-09-04] MEDS: traMADol 50 MG TAB PO PRN ×2 (03:36→09:50)
[2019-09-04 07:05] LABS: Glucose,Whole Blood 126 mg/dL (75-99)
[2019-09-04] MEDS: INSULIN ASPART (NovoLOG) 100 UNIT/ML VIAL SQ SCH ×2 (07:09→12:27)
[2019-09-04 07:44] VITALS: TEMP 97.7
[2019-09-04] MEDS: LISINOPRIL 2.5 MG TAB PO SCH (08:06)
[2019-09-04] MEDS: FUROSEMIDE 40 MG TAB PO SCH (08:06)
[2019-09-04] MEDS: HEPARIN SODIUM,PORCINE 5,000 UNIT/ML 1 ML VIAL SQ SCH (08:06)
[2019-09-04] MEDS: GABAPENTIN 400 MG CAP PO SCH ×2 (08:06→12:27)
[2019-09-04] MEDS: ATENOLOL 25 MG TAB PO SCH (08:06)
[2019-09-04] MEDS: LEVOTHYROXINE 125 MCG TAB PO SCH (08:06)
[2019-09-04] MEDS: ASPIRIN 81 MG PO SCH (08:06)
[2019-09-04] MEDS: glipiZIDE 10 MG TAB PO SCH (09:50)
[2019-09-04] MEDS: MUPIROCIN 2% OINT 22 GM TUBE TOPICAL SCH (09:51)
[2019-09-04] MEDS: NYSTATIN 100,000UNIT/GM CREAM 30 GM TUBE TOPICAL SCH (09:51)
[2019-09-04] MEDS: TRIAMCINOLONE 0.1% CREAM 80 GM TUBE TOPICAL SCH (10:51)
[2019-09-04 11:07] LABS: Glucose,Whole Blood 177 mg/dL (75-99)
[2019-09-04 11:39] VITALS: BP 121/50; PULSE 59; RESP 20
--- NOTE | 2019-09-04 14:37 | PN ---
PROGRESS NOTE DATE OF SERVICE: 09/04/2019 REASON FOR FOLLOWUP: Left posterior leg rash, possible ( ) dermatitis and rash on the right hand dorsum, seen by ( ). INTERVAL HISTORY: The patient is currently afebrile, has been breathing comfortably. The rash on the posterior leg has decreased in intensity, same for the right hand. The itching has improved. No open drainage. Denies any chest pain. Breathing has improved. No nausea. No abdominal pain, no diarrhea. PHYSICAL EXAMINATION: Blood pressure 120/60 with a pulse of 69, temperature is 97.7, she is 95% on 1 L nasal cannula. General description is an elderly female lying in bed in no distress. Respiratory system, unlabored breathing, clear to auscultation anteriorly. Heart S1, S2. Regular rate and rhythm. Abdomen soft, no tenderness. Left posterior leg rash is decreased in intensity. Right hand rash has also decreased. LABS: No new labs been obtained today. DIAGNOSTIC IMPRESSION AND PLAN: Patient with left posterior leg and right hand dorsum rash with ( ) dermatitis nicely responding to the Mycolog cream. She has been advised to apply Mycolog cream to the left posterior leg once a day and to the dorsum of the hand twice a day for one week. She will benefit from compression wraps or compression socks to the legs to decrease the swelling. No need for any systemic antibiotic therapy on discharge. MMODL / IJN: [id number] /
== END 2019-09-04 15:40 | disposition home or self-care (01) | DRG 291 ==
LOC: EC 10:35 → 3SCARD 14:03 → 5NMEDONC 09-04 05:33
PROVIDERS: ADMIT Hospitalist; ATTEND Hospitalist
PROC: 3E0234Z Introduction of Serum, Toxoid and Vaccine into Muscle, Percutaneous Approach (ICD-10-PCS; principal; 2019-08-28)
DX: I11.0 Hypertensive heart disease with heart failure (principal); J96.01 Acute respiratory failure with hypoxia; N17.0 Acute kidney failure with tubular necrosis; C79.51 Secondary malignant neoplasm of bone; C78.00 Secondary malignant neoplasm of unspecified lung; Z68.41 Body mass index [BMI] 40.0-44.9, adult; L03.116 Cellulitis of left lower limb; J98.11 Atelectasis; I50.33 Acute on chronic diastolic (congestive) heart failure; E66.01 Morbid (severe) obesity due to excess calories; I95.9 Hypotension, unspecified; Z23 Encounter for immunization; G89.3 Neoplasm related pain (acute) (chronic); I08.3 Combined rheumatic disorders of mitral, aortic and tricuspid valves; E11.65 Type 2 diabetes mellitus with hyperglycemia; E03.9 Hypothyroidism, unspecified; K21.9 Gastro-esophageal reflux disease without esophagitis; L30.9 Dermatitis, unspecified; H54.50 Low vision, one eye, unspecified eye; Z79.4 Long term (current) use of insulin; Z79.890 Hormone replacement therapy; Z79.899 Other long term (current) drug therapy; Z17.0 Estrogen receptor positive status [ER+]; Z71.3 Dietary counseling and surveillance; Z87.891 Personal history of nicotine dependence; Z85.3 Personal history of malignant neoplasm of breast; Z86.19 Personal history of other infectious and parasitic diseases; Z88.8 Allergy status to other drugs, medicaments and biological substances; Z88.6 Allergy status to analgesic agent; Z88.1 Allergy status to other antibiotic agents; Z91.041 Radiographic dye allergy status; Z83.2 Family history of diseases of the blood and blood-forming organs and certain disorders involving the immune mechanism
CPT/HCPCS: 36415; 71045; 71046; 73502; 78580; 80048; 80053; 81003; 83036; 83605; 83735; 83880; 84484; 85025; 85379; 85610; 85730; 93005; 93306; 93970; 96374; 99285

== ENCOUNTER 2019-09-24 10:52 | Day surgery (SDC) | payer MEDICARE ==
[2019-09-22 16:12] VITALS: BMI 40.6
[2019-09-24 11:16] VITALS: BP 174/80; PULSE 90; RESP 16; TEMP 98.2
[2019-09-24 11:28] LABS: Glucose,Whole Blood 346 mg/dL (75-99)
[2019-09-24] MEDS ORDERED: INSULIN ASPART (NovoLOG) 100 UNIT/ML VIAL SQ SCH (12:30)
--- NOTE | 2019-10-13 11:42 | IR ---
Fluoroscopic portogram([facility]). HISTORY: Device malfunction. The patient presented to the CVL with a Alejandra needle within the port. Preliminary fluoroscopy demonst rated the catheter to be intact. No aspiration could be obtained from the catheter and therefore i njection could not be performed. 0.1 minutes of fluoroscopy and one image submitted. IMPRESSION: 1. See above.
== END 2019-09-24 12:34 | disposition home or self-care (01) ==
LOC: CATHCVL 10:52
PROVIDERS: ATTEND Radiology Diagnostic Radiology
DX: T85.618A Breakdown (mechanical) of other specified internal prosthetic devices, implants and grafts, initial encounter (principal); Z53.8 Procedure and treatment not carried out for other reasons; C50.411 Malignant neoplasm of upper-outer quadrant of right female breast; C79.51 Secondary malignant neoplasm of bone; E11.9 Type 2 diabetes mellitus without complications; M19.90 Unspecified osteoarthritis, unspecified site; E78.2 Mixed hyperlipidemia; G62.1 Alcoholic polyneuropathy; I50.9 Heart failure, unspecified; E66.9 Obesity, unspecified; Z68.41 Body mass index [BMI] 40.0-44.9, adult; Z17.0 Estrogen receptor positive status [ER+]; Z91.048 Other nonmedicinal substance allergy status; Z88.6 Allergy status to analgesic agent; Z88.1 Allergy status to other antibiotic agents; Z79.82 Long term (current) use of aspirin; Z79.899 Other long term (current) drug therapy; Z79.4 Long term (current) use of insulin; Z79.52 Long term (current) use of systemic steroids; Z79.890 Hormone replacement therapy; Z92.21 Personal history of antineoplastic chemotherapy; Z87.891 Personal history of nicotine dependence; Z80.1 Family history of malignant neoplasm of trachea, bronchus and lung; Z80.49 Family history of malignant neoplasm of other genital organs
CPT/HCPCS: 36598

== ENCOUNTER 2020-04-27 10:17 | Inpatient (IN) | payer MEDICARE ==
--- NOTE | 2020-04-27 10:41 | ED ---
General Adult HPI - General Chief complaint: Weakness Stated complaint: SOB/Fall yesterday Time Seen by Provider: 04/27/20 10:20 Source: patient, RN notes reviewed, old records reviewed Mode of arrival: ambulatory Limitations: no limitations - History of Present Illness Initial comments: This is a 70-year-old female who presents to the emergency department complaining of generalized weakness. Patient has a past medical history of metastatic breast cancer. states she's been and follow up more recently has not yet injured herself. brings her in today because of her generalized weakness also increased swelling in her feet she appears to be more short of breath and has had to be put on oxygen by the lately and the patient is also been more confused recently. Patient has had no fever or chills. Patient denies any chest pain or palpitations. Patient denies any abdominal pain patient denies nausea vomiting diarrhea. Patient denies any headache patient denies any focal numbness or weakness - Related Data Home Medications Medication Instructions Recorded Confirmed Enalapril Maleate 10 mg PO DAILY 09/16/14 04/27/20 Levothyroxine Sodium [Synthroid] 125 mcg PO DAILY 09/16/14 04/27/20 atenoloL [Tenormin] 25 mg PO DAILY 09/16/14 04/27/20 traMADol HCL [Ultram] 100 mg PO Q6H PRN 06/19/17 04/27/20 Gabapentin [Neurontin] 400 mg PO QID 08/27/19 04/27/20 glipiZIDE [Glucotrol] 10 mg PO AC-BID 08/27/19 04/27/20 Furosemide [Lasix] 40 mg PO BID 04/27/20 04/27/20 Allergies Allergy/AdvReac Type Severity Reaction Status Date / Time anastrozole Allergy Unknown Verified 04/27/20 13:42 ciprofloxacin [From Cipro] Allergy Unknown Verified 04/27/20 13:42 ibuprofen Allergy Swelling Verified 04/27/20 13:42 Iodinated Contrast Media Allergy Rash/Hives Verified 04/27/20 13:42 [Iodinated Contrast Media - IV Dye] Review of Systems ROS Statement: Those systems with pertinent positive or pertinent negative responses have been documented in the HPI. ROS Other: All systems not noted in ROS Statement are negative. Past Medical History Past Medical History: Cancer, Diabetes Mellitus, GERD/Reflux, Hypertension, Thyroid Disorder Additional Past Medical History / Comment(s): recent breast cancer diagnosis. Bone metastasis mar 2019 states dx shingles, and has vision left eye issues History of Any Multi-Drug Resistant Organisms: None Reported Past Surgical History: No Surgical Hx Reported Additional Past Surgical History / Comment(s): PORT Cath INSERTION. cardiac catheterization Past Anesthesia/Blood Transfusion Reactions: No Reported Reaction Additional Past Anesthesia/Blood Transfusion Reaction / Comment(s): no previous anesthesia Past Psychological History: No Psychological Hx Reported Smoking Status: Never smoker Past Alcohol Use History: None Reported Past Drug Use History: None Reported - Past Family History Mother Family Medical History: Cancer Additional Family Medical History / Comment(s): blood clots Sister(s) Family Medical History: Blood Disorder Additional Family Medical History / Comment(s): blood clots Daughter(s) Family Medical History: Blood Disorder Additional Family Medical History / Comment(s): blood clots General Exam - General Exam Comments Initial Comments: GENERAL: Patient is well-developed and well-nourished. Patient is nontoxic and well- hydrated and is in mild distress. ENT: Neck is soft and supple. No significant lymphadenopathy is noted. Oropharynx is clear. Moist mucous membranes. Neck has full range of motion without eliciting any pain. EYES: The sclera were anicteric and conjunctiva were pink and moist. Extraocular movements were intact and pupils were equal round and reactive to light. Eyelids were unremarkable. PULMONARY: Patient has some crackles in the right upper lung CARDIOVASCULAR: There is a regular rate and rhythm without any murmurs gallops or rubs. ABDOMEN: Soft and nontender with normal bowel sounds. SKIN: Skin is clear with no lesions or rashes and otherwise unremarkable. NEUROLOGIC: Patient is alert and oriented 2. Cranial nerves II through XII are grossly intact. Motor and sensory are also intact. Normal speech, volume and content. Symmetrical smile. MUSCULOSKELETAL: Normal extremities with adequate strength and full range of motion. 2+ edema bilaterally LYMPHATICS: No significant lymphadenopathy is noted PSYCHIATRIC: Normal psychiatric evaluation. Limitations: no limitations Course Vital Signs 04/27/20 04/27/20 04/27/20 10:22 11:25 12:08 Temperature 98.3 F Pulse Rate 69 70 70 Respiratory 18 16 18 Rate Blood Pressure 131/62 165/87 112/68 O2 Sat by Pulse 96 94 L 96 Oximetry 04/27/20 04/27/20 12:30 13:56 Temperature 98.4 F Pulse Rate 67 70 Respiratory 18 18 Rate Blood Pressure 121/70 107/90 O2 Sat by Pulse 97 96 Oximetry Medical Decision Making - Medical Decision Making EKG shows normal sinus rhythm at 60 bpm RI interval is 162 QRS is 98 QT interval 440 QTC is 480. Patient's EKG shows no ST segment elevation or depression. CT of the chest shows no pulmonary embolism however does show metastatic disease to the lung. I spoke with Dr. MEMBRENO agreed to admit the patient admitted the patient I consulted Dr. Dc - Lab Data Result diagrams: 04/27/20 10:55 04/27/20 10:55 Lab Results 04/27/20 04/27/20 04/27/20 Range/Units 10:55 10:55 10:55 WBC 8.4 (3.8-10.6) k/uL RBC 4.22 (3.80-5.40) m/uL Hgb 11.2 L (11.4-16.0) gm/dL Hct 35.3 (34.0-46.0) % MCV 83.7 (80.0-100.0) fL MCH 26.6 (25.0-35.0) pg MCHC 31.8 (31.0-37.0) g/dL RDW 20.2 H (11.5-15.5) % Plt Count 256 (150-450) k/uL Neutrophils % 71 % Lymphocytes % 14 % Monocytes % 9 % Eosinophils % 2 % Basophils % 1 % Neutrophils # 6.0 (1.3-7.7) k/uL Lymphocytes # 1.2 (1.0-4.8) k/uL Monocytes # 0.7 (0-1.0) k/uL Eosinophils # 0.2 (0-0.7) k/uL Basophils # 0.1 (0-0.2) k/uL Hypochromasia Moderate Anisocytosis Moderate Microcytosis Slight PT 10.7 (9.0-12.0) sec INR 1.0 (<1.2) APTT 32.3 H (22.0-30.0) sec D-Dimer 5.82 H (<0.60) mg/L FEU Sodium (137-145) mmol/L Potassium (3.5-5.1) mmol/L Chloride (98-107) mmol/L Carbon Dioxide (22-30) mmol/L Anion Gap mmol/L BUN (7-17) mg/dL Creatinine (0.52-1.04) mg/dL Est GFR (CKD-EPI)AfAm (>60 ml/min/1.73 sqM) Est GFR (CKD-EPI)NonAf (>60 ml/min/1.73 sqM) Glucose (74-99) mg/dL Plasma Lactic Acid Jaswant (0.7-2.0) mmol/L Calcium (8.4-10.2) mg/dL Magnesium (1.6-2.3) mg/dL Total Bilirubin (0.2-1.3) mg/dL AST (14-36) U/L ALT (4-34) U/L Alkaline Phosphatase (38-126) U/L Troponin I (0.000-0.034) ng/mL NT-Pro-B Natriuret Pep pg/mL Total Protein (6.3-8.2) g/dL Albumin (3.5-5.0) g/dL Urine Color Yellow Urine Appearance Clear (Clear) Urine pH 6.0 (5.0-8.0) Ur Specific [place] 1.020 (1.001-1.035) Urine Protein Negative (Negative) Urine Glucose (UA) Negative (Negative) Urine Ketones Negative (Negative) Urine Blood Negative (Negative) Urine Nitrite Positive H (Negative) Urine Bilirubin Negative (Negative) Urine Urobilinogen 2.0 (<2.0) mg/dL Ur Leukocyte Esterase Negative (Negative) Urine RBC <1 (0-5) /hpf Urine WBC <1 (0-5) /hpf Urine Bacteria Rare H (None) /hpf 04/27/20 04/27/20 04/27/20 Range/Units 10:55 10:55 10:55 WBC (3.8-10.6) k/uL RBC (3.80-5.40) m/uL Hgb (11.4-16.0) gm/dL Hct (34.0-46.0) % MCV (80.0-100.0) fL MCH (25.0-35.0) pg MCHC (31.0-37.0) g/dL RDW (11.5-15.5) % Plt Count (150-450) k/uL Neutrophils % % Lymphocytes % % Monocytes % % Eosinophils % % Basophils % % Neutrophils # (1.3-7.7) k/uL Lymphocytes # (1.0-4.8) k/uL Monocytes # (0-1.0) k/uL Eosinophils # (0-0.7) k/uL Basophils # (0-0.2) k/uL Hypochromasia Anisocytosis Microcytosis PT (9.0-12.0) sec INR (<1.2) APTT (22.0-30.0) sec D-Dimer (<0.60) mg/L FEU Sodium 138 (137-145) mmol/L Potassium 3.7 (3.5-5.1) mmol/L Chloride 102 (98-107) mmol/L Carbon Dioxide 31 H (22-30) mmol/L Anion Gap 5 mmol/L BUN 17 (7-17) mg/dL Creatinine 0.69 (0.52-1.04) mg/dL Est GFR (CKD-EPI)AfAm >90 (>60 ml/min/1.73 sqM) Est GFR (CKD-EPI)NonAf 89 (>60 ml/min/1.73 sqM) Glucose 139 H (74-99) mg/dL Plasma Lactic Acid Jaswant 1.4 (0.7-2.0) mmol/L Calcium 10.1 (8.4-10.2) mg/dL Magnesium 1.6 (1.6-2.3) mg/dL Total Bilirubin 1.2 (0.2-1.3) mg/dL AST 76 H (14-36) U/L ALT 14 (4-34) U/L Alkaline Phosphatase 117 (38-126) U/L Troponin I <0.012 (0.000-0.034) ng/mL NT-Pro-B Natriuret Pep pg/mL Total Protein 7.0 (6.3-8.2) g/dL Albumin 3.1 L (3.5-5.0) g/dL Urine Color Urine Appearance (Clear) Urine pH (5.0-8.0) Ur Specific [place] (1.001-1.035) Urine Protein (Negative) Urine Glucose (UA) (Negative) Urine Ketones (Negative) Urine Blood (Negative) Urine Nitrite (Negative) Urine Bilirubin (Negative) Urine Urobilinogen (<2.0) mg/dL Ur Leukocyte Esterase (Negative) Urine RBC (0-5) /hpf Urine WBC (0-5) /hpf Urine Bacteria (None) /hpf 04/27/20 Range/Units 10:55 WBC (3.8-10.6) k/uL RBC (3.80-5.40) m/uL Hgb (11.4-16.0) gm/dL Hct (34.0-46.0) % MCV (80.0-100.0) fL MCH (25.0-35.0) pg MCHC (31.0-37.0) g/dL RDW (11.5-15.5) % Plt Count (150-450) k/uL Neutrophils % % Lymphocytes % % Monocytes % % Eosinophils % % Basophils % % Neutrophils # (1.3-7.7) k/uL Lymphocytes # (1.0-4.8) k/uL Monocytes # (0-1.0) k/uL Eosinophils # (0-0.7) k/uL Basophils # (0-0.2) k/uL Hypochromasia Anisocytosis Microcytosis PT (9.0-12.0) sec INR (<1.2) APTT (22.0-30.0) sec D-Dimer (<0.60) mg/L FEU Sodium (137-145) mmol/L Potassium (3.5-5.1) mmol/L Chloride (98-107) mmol/L Carbon Dioxide (22-30) mmol/L Anion Gap mmol/L BUN (7-17) mg/dL Creatinine (0.52-1.04) mg/dL Est GFR (CKD-EPI)AfAm (>60 ml/min/1.73 sqM) Est GFR (CKD-EPI)NonAf (>60 ml/min/1.73 sqM) Glucose (74-99) mg/dL Plasma Lactic Acid Jaswant (0.7-2.0) mmol/L Calcium (8.4-10.2) mg/dL Magnesium (1.6-2.3) mg/dL Total Bilirubin (0.2-1.3) mg/dL AST (14-36) U/L ALT (4-34) U/L Alkaline Phosphatase (38-126) U/L Troponin I (0.000-0.034) ng/mL NT-Pro-B Natriuret Pep 359 pg/mL Total Protein (6.3-8.2) g/dL Albumin (3.5-5.0) g/dL Urine Color Urine Appearance (Clear) Urine pH (5.0-8.0) Ur Specific [place] (1.001-1.035) Urine Protein (Negative) Urine Glucose (UA) (Negative) Urine Ketones (Negative) Urine Blood (Negative) Urine Nitrite (Negative) Urine Bilirubin (Negative) Urine Urobilinogen (<2.0) mg/dL Ur Leukocyte Esterase (Negative) Urine RBC (0-5) /hpf Urine WBC (0-5) /hpf Urine Bacteria (None) /hpf Disposition Clinical Impression: Dyspnea, Generalized weakness, Pleural effusion, Lung metastases Disposition: ADMITTED IP TO THIS HOSP Referrals: Keagan Alfaro DO [Primary Care Provider] - 1-2 days Time of Disposition: 14:36
[2020-04-27 11:11] LABS: Anisocytosis Moderate; Basophils # (A) 0.1 k/uL (0-0.2); Basophils % (A) 1 %; Eosinophils # (A) 0.2 k/uL (0-0.7); Eosinophils % (A) 2 %; HCT 35.3 % (34.0-46.0); HGB 11.2 gm/dL (11.4-16.0); Hypochromasia Moderate; Lymphocytes # (A) 1.2 k/uL (1.0-4.8); Lymphocytes % (A) 14 %; MCH 26.6 pg (25.0-35.0); MCHC 31.8 g/dL (31.0-37.0); MCV 83.7 fL (80.0-100.0); Mean Platelet Volume 7.6; Microcytosis Slight; Monocytes # (A) 0.7 k/uL (0-1.0); Monocytes % (A) 9 %; Neutrophils % (A) 71 %; Platelet Count 256 k/uL (150-450); RBC 4.22 m/uL (3.80-5.40); RDW 20.2 % (11.5-15.5); WBC 8.4 k/uL (3.8-10.6)
[2020-04-27 11:21] LABS: ALT 14 U/L (4-34); AST 76 U/L (14-36); African American GFR (CKD) >90 (>60 ml/min/1.73 sqM); Albumin 3.1 g/dL (3.5-5.0); Alkaline Phosphatase 117 U/L (38-126); Anion Gap 5 mmol/L; Blood Urea Nitrogen 17 mg/dL (7-17); Calcium 10.1 mg/dL (8.4-10.2); Carbon Dioxide 31 mmol/L (22-30); Chloride 102 mmol/L (98-107); Glucose 139 mg/dL (74-99); Magnesium 1.6 mg/dL (1.6-2.3); Non-African American GFR(CKD) 89 (>60 ml/min/1.73 sqM); Potassium 3.7 mmol/L (3.5-5.1); Sodium 138 mmol/L (137-145); Total Bilirubin 1.2 mg/dL (0.2-1.3)
--- NOTE | 2020-04-27 11:50 | XR ---
EXAMINATION TYPE: XR chest 2V DATE OF EXAM: 04/27/2020 COMPARISON: 08/30/2019 TECHNIQUE: PA and lateral views submitted. HISTORY: Weakness FINDINGS: Diffuse skeletal osseous metastases noted. Mediport catheter seen is bilateral consolidation and smal l right effusion. Pathologic rib fractures are suggested on the right. Pulmonary nodules in the lungs are suspected in the heart is stable in size. IMPRESSION: 1. Bilateral airspace disease correlate for pneumonia. Venous congestion not excluded. 2. Diffuse skeletal metastasis. 3. Suspect intrapulmonary metastases.
--- NOTE | 2020-04-27 11:54 | CT ---
EXAMINATION TYPE: CT brain wo con DATE OF EXAM: 04/27/2020 COMPARISON: None HISTORY: altered mental status CT DLP: 1099.[address] of the brain was performed. The ventricles, basal cisterns and sulci overlying the cerebral convexities demonstrate mild enlargem ent. Scattered areas of decreased attenuation within the left temporal lobe, left frontal lobe and hi gh left frontal lobe could reflect areas of remote ischemic insult however given patient's history of breast carcinoma metastatic disease is not excluded. There is no evidence for intracranial hemorrhage or sulcal effacement. There is decreased attenuation about the periventricular white matter and deep white matter of both c erebral hemispheres, compatible with chronic small vessel ischemia. Differential diagnosis does inclu de demyelination. No mass effects are seen.No midline shift. Heterogenous appearance throughout the bony calvarium is felt to reflect metastatic disease. If symptoms persist consider MRI. IMPRESSION: 1. Age related atrophic and chronic small vessel ischemic change without acute intracranial process s een at this time. 2.Scattered areas of decreased attenuation within the left temporal lobe, left frontal lobe and high left frontal lobe could reflect areas of nonacute ischemic insult however given patient's history of breast carcinoma metastatic disease is not excluded. 3. Findings compatible with a metastatic disease to the bony calvarium
[2020-04-27 11:57] LABS: Partial Thromboplastin Time 32.3 sec (22.0-30.0); Prothrombin Time 10.7 sec (9.0-12.0)
[2020-04-27 12:12] LABS: D-Dimer 5.82 mg/L FEU (<0.60)
[2020-04-27] MEDS ORDERED: diphenhydrAMINE 50 MG/ML 1 ML VIAL IVP STA (12:19)
[2020-04-27] MEDS ORDERED: methylPREDNISolone SOD SUCCI 125 MG/2 ML VIAL IV STA (12:19)
[2020-04-27] MEDS ORDERED: FAMOTIDINE 20 MG/2 ML VIAL IV STA (12:19)
[2020-04-27 12:29] LABS: Appearance,Urine Clear (Clear); Bacteria,Urine Rare /hpf; Bilirubin,Urine Negative (Negative); Blood,Urine Negative (Negative); Color,Urine Yellow; Glucose,Urine (UA) Negative (Negative); Ketones,Urine Negative (Negative); Leukocyte Esterase,Urine Negative (Negative); Nitrite,Urine Positive (Negative); Protein,Urine Negative (Negative); RBC,Urine <1 /hpf (0-5); WBC,Urine <1 /hpf (0-5)
--- NOTE | 2020-04-27 13:23 | CT ---
EXAMINATION TYPE: CT chest angio for PE DATE OF EXAM: 04/27/2020 COMPARISON: None HISTORY: elevated d-dimer CT DLP: 674.5 mGycm CONTRAST: CT chest with contrast and 3D reconstruction with MIP imaging is performed with IV Contrast, patient injected with 100 mL of Isovue 370. Contrast-enhanced CT of the chest was performed through the course of the pulmonary arteries with calin g and mediastinal window settings submitted. 3D reconstruction with MIP imaging was also performed. PULMONARY ARTERIES: The pulmonary arteries and their major tributaries are patent. I do not see neelima dence for sizable filling defect to suggest pulmonary embolic process. LUNGS: Bilateral pleural effusions right greater than left with right lower lobe as well as left lowe r lobe volume loss and/or infiltrates. Scattered pulmonary nodules compatible with metastatic disease MEDIASTINUM: Thoracic aorta is of normal caliber,however, evaluation is limited given timing of the contrast bolus. If there is concern for thoracic aortic pathology consider YAHIR. Correlate clinicall y . The heart is not enlarged. No evidence for mediastinal mass. No mediastinal lymph nodes greater than 1cm. HILAR STRUCTURES: No evidence for mass. No hilar lymph nodes greater than 1 cm. UPPER ABDOMEN: No significant abnormality is seen. Other: Diffuse bony metastatic disease identified. Multiple left breast masses seen with skin thicken ing noted. Mastectomy changes right breast. IMPRESSION: 1. No evidence for Pulmonary embolism at this time. 2. Pulmonary metastatic disease noted. 3. Bony metastatic disease. 4. Bilateral pleural effusions and areas of atelectasis) left.
[2020-04-27] MEDS ORDERED: traMADol 50 MG TAB PO PRN (20:10)
[2020-04-27] MEDS ORDERED: FUROSEMIDE 40 MG TAB PO SCH (21:00)
[2020-04-27] MEDS ORDERED: ALPRAZolam 0.25 MG TAB PO PRN (21:13)
[2020-04-27] MEDS ORDERED: HYDROmorphone 0.5 MG/0.5 ML SYRINGE IVP PRN (21:13)
[2020-04-27] MEDS ORDERED: SODIUM CHLORIDE 0.9% 1,000 ML IV SCH (21:30)
[2020-04-27 21:51] LABS: Glucose,Whole Blood 352 mg/dL (75-99)
[2020-04-27] MEDS: HEPARIN SODIUM,PORCINE 5,000 UNIT/ML 1 ML VIAL SQ SCH (22:05)
[2020-04-27] MEDS: FUROSEMIDE 10 MG/ML 4 ML VIAL IV SCH (22:05)
[2020-04-27] MEDS: GABAPENTIN 400 MG CAP PO SCH (22:05)
[2020-04-27] MEDS: INSULIN ASPART (NovoLOG) 100 UNIT/ML VIAL SQ SCH (22:05)
[2020-04-27] MEDS: traMADol 50 MG TAB PO PRN (22:06)
--- NOTE | 2020-04-27 22:30 | HP ---
HISTORY AND PHYSICAL DATE OF SERVICE: 04/27/2020 CHIEF COMPLAINT: Weakness. HISTORY OF PRESENT ILLNESS: This 70-year-old woman with a past medical history of multiple medical problems, including history of metastatic malignancy, history of CHF, diabetes mellitus, GERD, hypertension, history of metastatic left breast cancer, metastases to the bone, spine and lungs, was having chemotherapy and had radiation and hormonal treatment. The patient also had chronic hypoxic respiratory failure. The patient was having increasing difficulties with weakness and the patient has had multiple falls. Her was finding it difficult to transfer. The patient came to [facility] and was admitted for further evaluation and treatment. Chest x-ray showed bilateral lesions. There is no history of any fever, rigor or chills. No history of headache, loss of consciousness, seizures. PAST MEDICAL HISTORY: History of CHF, diabetes mellitus, type 2, GERD, hypertension, metastatic left breast cancer. MEDICATIONS: Medications prior to admission include Ultram 100 mg q.6 p.r.n., Glucotrol, Synthroid, Neurontin, Lasix, Tenormin, enalapril. ALLERGIES: ANASTROZOLE, CIPRO, IBUPROFEN, IODINATED CONTRAST DYES. FAMILY HISTORY: History of breast cancer and blood clots in the family. SOCIAL HISTORY: Previous history of smoking. No history of alcohol. REVIEW OF SYSTEMS: ENT: No diminished hearing. No diminished vision. CARDIOVASCULAR SYSTEM: No angina, palpitations. RESPIRATORY SYSTEM: As mentioned earlier. GI: As mentioned earlier. : No dysuria or retention. NERVOUS SYSTEM: As mentioned earlier. ALLERGY/IMMUNOLOGY: No asthma, hayfever. MUSCULOSKELETAL: As mentioned earlier. HEMATOLOGY/ONCOLOGY: As mentioned earlier. ENDOCRINE: Hypothyroidism. CONSTITUTIONAL: As mentioned earlier. DERMATOLOGY: Negative. RHEUMATOLOGY: Negative. PSYCHIATRY: As mentioned earlier. PHYSICAL EXAMINATION: Patient alert and oriented x3. Pulse 87, blood pressure 150/90, respiration 18, temperature 98.2, pulse ox 97% on 2 L. HEENT: Conjunctivae normal. NECK: No jugular venous distention. CARDIOVASCULAR SYSTEM: S1, S2 muffled. RESPIRATORY SYSTEM: Breath sounds diminished at the bases. A few scattered rhonchi and crackles. ABDOMEN: Soft, non-tender. No mass palpable. LEGS: Bilateral leg edema. Multiple ecchymosis. NERVOUS SYSTEM: Higher functions as mentioned earlier. Diffusely weak, mainly in the lower limbs. SKIN: Multiple ecchymoses. JOINTS: No active deforming arthropathy. Movement of the left arm is limited by old fracture. LYMPHATICS: No lymph node palpable in neck, axillae or groin. LABS/IMAGING: WBC 8.4, hemoglobin 11.2, and D-dimer is 5.82. Chest CTA which was reviewed personally by me showed no evidence of any pulmonary embolism but showed pulmonary metastatic disease and bony metastatic disease and bilateral pleural effusions and atelectasis on the left. ASSESSMENT: 1. Carcinoma of breast with multiple metastases and weakness. Rule out spinal metastases and paraplegia. 2. Multiple lung masses. 3. Bilateral pleural effusion. 4. Gait dysfunction. 5. Change in mental status, metabolic encephalopathy, multifactorial. 6. History of congestive heart failure. 7. Diabetes mellitus, type 2. 8. Gastroesophageal reflux disease. 9. Hypertension. 10.Hypothyroidism. 11.Chronic hypoxic respiratory failure, on 2 L nasal cannula at home. 12.History of shingles. 13.History of left elbow fracture and surgery. 14.History of nicotine dependence. 15.Obesity with body mass index of 36.8. RECOMMENDATIONS AND DISCUSSION: In this 70-year-old woman who presented with multiple complex medical issues, we will monitor the patient closely, continue the current medications, continue symptomatic treatment. Otherwise at this time I recommend PT/OT evaluation, neurology consultation. Resume the home medications. Symptomatic treatment. Possible ECF rehab. Guarded prognosis because of multiple complex medical issues. I would also recommend IV Lasix and continue to monitor. Further recommendations to follow. A copy of this dictation is being forwarded to Noa Soriano, who is the primary physician. MMODL / IJN: [id number] /
[2020-04-28] MEDS: PIPERACILLIN-TAZOBACTAM 3.375 GM in SODIUM CHLORIDE 0.9% 100 ML IVPB SCH ×4 (00:34→23:19)
[2020-04-28] MEDS ORDERED: SODIUM CHLORIDE 0.65% NASAL SPRAY 44 ML BTL NASAL PRN (03:00)
[2020-04-28 04:02] LABS: Glucose,Whole Blood 340 mg/dL (75-99)
[2020-04-28] MEDS: LEVOTHYROXINE 125 MCG TAB PO SCH (05:44)
[2020-04-28 06:55] LABS: Glucose,Whole Blood 309 mg/dL (75-99)
[2020-04-28] MEDS: ALBUTEROL NEBULIZED 2.5 MG/3 ML INHALATION SCH ×4 (07:29→19:37)
[2020-04-28] MEDS: PANTOPRAZOLE 40 MG TABLET PO SCH (07:49)
[2020-04-28] MEDS: atenoloL 25 MG TAB PO SCH (07:49)
[2020-04-28] MEDS: glipiZIDE 10 MG TAB PO SCH ×2 (07:49→16:42)
[2020-04-28] MEDS: lisinopriL 20 MG TAB PO SCH (07:49)
[2020-04-28] MEDS: INSULIN ASPART (NovoLOG) 100 UNIT/ML VIAL SQ SCH ×4 (07:49→21:18)
[2020-04-28] MEDS: GABAPENTIN 400 MG CAP PO SCH ×4 (07:50→21:18)
[2020-04-28] MEDS: FUROSEMIDE 10 MG/ML 4 ML VIAL IV SCH ×2 (07:50→21:18)
[2020-04-28] MEDS: HEPARIN SODIUM,PORCINE 5,000 UNIT/ML 1 ML VIAL SQ SCH ×2 (07:50→21:18)
[2020-04-28] MEDS ORDERED: SODIUM CHLORIDE 0.9% 1,000 ML IV SCH (10:00)
[2020-04-28 11:10] LABS: Glucose,Whole Blood 258 mg/dL (75-99)
[2020-04-28] MEDS ORDERED: FAMOTIDINE 20 MG/2 ML VIAL IV ONE (12:30)
[2020-04-28] MEDS ORDERED: methylPREDNISolone SOD SUCCI 125 MG/2 ML VIAL IV ONE (12:30)
[2020-04-28] MEDS ORDERED: diphenhydrAMINE 50 MG/ML 1 ML VIAL IVP ONE (12:30)
[2020-04-28] MEDS: NYSTATIN 100,000 UNIT/GM POWD 15 GM TOPICAL SCH ×2 (12:57→21:19)
[2020-04-28] MEDS: MAG HYDROX/AL HYDROX/SIMETH 30 ML, LIDOCAINE VISCOUS 30 ML, diphenhydrAMINE ELIXIR 75 M... PO SCH ×12 (12:57→22:21)
[2020-04-28 13:05] LABS: African American GFR (CKD) >90 (>60 ml/min/1.73 sqM); Anion Gap 7 mmol/L; Blood Urea Nitrogen 18 mg/dL (7-17); Calcium 9.6 mg/dL (8.4-10.2); Carbon Dioxide 32 mmol/L (22-30); Chloride 98 mmol/L (98-107); Glucose 312 mg/dL (74-99); Non-African American GFR(CKD) 90 (>60 ml/min/1.73 sqM); Potassium 3.4 mmol/L (3.5-5.1); Sodium 137 mmol/L (137-145)
[2020-04-28 13:31] VITALS: BMI 36.2
--- NOTE | 2020-04-28 13:50 | P.CNNES ---
History of Present Illness Consult date: 04/28/20 Requesting physician: Fatoumata Gagnon Reason for Consult: Weakness History of Present Illness: Patient is a 70-year-old female, came to the hospital yesterday at 10:15 AM for evaluation of generalized weakness. Patient has history of metastatic breast cancer to the bones and the lungs. Patient at present appears somewhat delirious, slightly confused but able to provide some history. Patient states that her weakness started about 3 weeks ago. At first she required some help to get up but she was then able to stand and walk fine. Then it became worse, and she required an assist of 1 and now she requires an assist of 2 to walk. Once they lift her up on her feet, then she tends to fall down. Patient has metastat ic cancer. Patient denies any headache. Vital signs on arrival blood pressure 131/62, pulse rate 69 temperature 98.3. Computed tomography scan of head showed age-related atrophic and chronic small vessel ischemic change without acute intracranial process. Scattered areas of decreased attenuation within the left temporal lobe, left frontal lobe and high left frontal lobe would reflect areas of non-acute ischemic insult however given patient's history of breast carcinoma, metastatic disease is not excluded. Findings compatible with a metastatic disease of the bony calvarium. CTA of the chest negative for pulmonary embolism. Per report metastasis noted. Bony metastatic disease. Bilateral pleural effusion, and area of atelectasis on the left. EKG shows normal sinus rhythm, chest x-ray showed bilateral air space disease correlate for pneumonia. Venous congestion not excluded. Diffuse skeletal metastasis. Patient's blood test shows normal sodium and potassium. Renal functions normal. AST 76, ALT 14, UA positive for nitrite, but negative leukocyte esterase. Serum calcium is 10.1. Patient has left wrist drop. Patient states that about 6 months ago, she was trying to stand up using her elbow support, and it snapped. She required surgery for left elbow fracture. Since then patient has developed a left wrist drop. Patient does have a history of tobacco use in the past. Patient has history of breast cancer, that she states was diagnosed in 2015. Review of Systems Patient denies headache, denies any chest pain, or shortness of breath at this time. Denies nausea vomiting. She feels stomach is always 4. Patient has some difficulty controlling bowels. She has urgency and frequency. Patient denies significant mid back or low back pain. She has some pain in the back of the neck. Complains of fatigue, weakness, gait imbalance. Complains of dry mouth. All other review of systems reviewed and noncontributory. Past Medical History Past Medical History: Cancer, Heart Failure, Diabetes Mellitus, GERD/Reflux, Hypertension, Thyroid Disorder Additional Past Medical History / Comment(s): Metastatic L breast cancer-mets to bone/spine/lung and has had chemo/radiation and hormonal treatments, lately using oxygen at 2L/NC, NIDDM type II-now since wt loss is diet controlled, neuropathy legs/feet/hands, shingelles and since has had poor L eye vision, L elbow fracture with surgery and since has had limited ROM with that arm/hand, L leg cellulitis, hypothyroid, arthritis bilateral knees/hands and back. History of Any Multi-Drug Resistant Organisms: None Reported Past Surgical History: No Surgical Hx Reported, Breast Surgery, Heart Catheterization, Orthopedic Surgery Additional Past Surgical History / Comment(s): L breast core bx, L elbow fracture/hardware, R chest port/portocathogram. Past Anesthesia/Blood Transfusion Reactions: No Reported Reaction Additional Past Anesthesia/Blood Transfusion Reaction / Comment(s): no previous anesthesia Smoking Status: Former smoker - Past Family History Father Family Medical History: Cancer Additional Family Medical History / Comment(s): Lung and prostate cancer. Father was a smoker. Mother Family Medical History: Cancer Additional Family Medical History / Comment(s): Breast cancer and blood clots Sister(s) Family Medical History: Blood Disorder Additional Family Medical History / Comment(s): blood clots Daughter(s) Family Medical History: Blood Disorder Additional Family Medical History / Comment(s): blood clots Medications and Allergies Home Medications Medication Instructions Recorded Confirmed Type Enalapril Maleate 10 mg PO DAILY 09/16/14 04/27/20 History Levothyroxine Sodium [Synthroid] 125 mcg PO DAILY 09/16/14 04/27/20 History atenoloL [Tenormin] 25 mg PO DAILY 09/16/14 04/27/20 History traMADol HCL [Ultram] 100 mg PO Q6H PRN 06/19/17 04/27/20 History Gabapentin [Neurontin] 400 mg PO QID 08/27/19 04/27/20 History glipiZIDE [Glucotrol] 10 mg PO AC-BID 08/27/19 04/27/20 History Furosemide [Lasix] 40 mg PO BID 04/27/20 04/27/20 History Allergies Allergy/AdvReac Type Severity Reaction Status Date / Time anastrozole Allergy Unknown Verified 04/27/20 13:42 ciprofloxacin [From Cipro] Allergy Unknown Verified 04/27/20 13:42 ibuprofen Allergy Swelling Verified 04/27/20 13:42 Iodinated Contrast Media Allergy Rash/Hives Verified 04/27/20 13:42 [Iodinated Contrast Media - IV Dye] Physical Examination - Vital Signs Vital Signs: Vital Signs Temp Pulse Pulse Resp BP BP Pulse Ox 04/28/20 07:46 80 04/28/20 07:30 76 04/28/20 05:00 97.9 F 81 16 146/68 94 L 04/27/20 21:00 98.2 F 84 20 169/84 96 04/27/20 19:57 98.2 F 87 18 150/90 97 04/27/20 17:06 16 04/27/20 16:17 96.3 F L 75 19 157/63 95 04/27/20 15:03 71 18 137/72 96 04/27/20 13:56 98.4 F 70 18 107/90 96 04/27/20 12:30 67 18 121/70 97 04/27/20 12:08 70 18 112/68 96 04/27/20 11:25 70 16 165/87 94 L 04/27/20 10:22 98.3 F 69 18 131/62 96 Intake and Output 04/27/20 04/28/20 04/28/20 22:59 06:59 14:59 Intake Total 950 560 Output Total 1 Balance 949 560 Intake: Intake, IV Titration 60 260 Amount Piperacillin-Tazobactam 3 100 .375 gm In Sodium Chloride 0.9% 100 ml @ 25 mls/hr IVPB Q8HR [facility] Rx# :[id number] Sodium Chloride 0.9% 1, 60 160 000 ml @ 20 mls/hr IV . Q24H [facility] Rx#:[id number] Oral 890 300 Output: Urine/Stool Mix 1 Other: Voiding Method Bedside Commode Bedpan # Voids 2 4 Weight 88.451 kg 87 kg On examination patient is an elderly female, very pleasant in no acute distress. Patient is slightly delirious and somewhat disoriented. Patient states that it is 1913, then said was 191, and then said was 2019. Thinks it is January but the season is fall season. Patient frequently changes her statement. She states that she is in [facility] in [facility]. She could not tell name of the current president. On cranial examination pupils are round and reacting to light, visual mojica are full on confrontation, extraocular muscles are intact with no nystagmus. Face is symmetric, tongue protrudes to the midline. Palatal elevation sensation normal. Hearing is slightly decreased, shoulder shrug normal. On muscle strength testing there is no pronator drift. 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 Her finger flexors, ulnar innervated muscles otherwise appears normal. In the lower limbs hip flexion 3+4-/3+4-, knee extension appears normal ankle dorsiflexion 4+5-/4+5-. Reflexes are diminished to absent, and plantars are downgoing. No clonus. No ataxia for [id number] testing. Tone and bulk of muscles normal. Results - Laboratory Findings CBC and BMP: 04/27/20 10:55 04/28/20 04:47 Abnormal Lab Findings: Abnormal Labs 04/27/20 04/27/20 04/27/20 10:55 10:55 10:55 Hgb 11.2 L RDW 20.2 H APTT 32.3 H D-Dimer 5.82 H Carbon Dioxide Glucose POC Glucose (mg/dL) AST Albumin Urine Nitrite Positive H Urine Bacteria Rare H 04/27/20 04/27/20 04/28/20 10:55 21:48 04:01 Hgb RDW APTT D-Dimer Carbon Dioxide 31 H Glucose 139 H POC Glucose (mg/dL) 352 H 340 H AST 76 H Albumin 3.1 L Urine Nitrite Urine Bacteria 04/28/20 06:53 Hgb RDW APTT D-Dimer Carbon Dioxide Glucose POC Glucose (mg/dL) 309 H AST Albumin Urine Nitrite Urine Bacteria Assessment and Plan Assessment: * 70-year-old female admitted with three-week history of progressive weakness of upper and lower limbs, with gait imbalance and falls. Patient has metastatic breast cancer to the lungs and bones. Differential diagnosis is quite extensive, could be related to side effects of chemotherapy, paraneoplastic syndrome like Lambert Eaton myasthenic syndrome, or weakness related to advanced cancer. Rule out intracerebral/spinal metastasis. * Diabetes poorly controlled with A1c 10.6. Plan: * MRI of brain and cervical spine with and without contrast if no medical contraindications to rule out cerebral and spinal metastasis respectively. * We will check calcium channel antibodies to rule out Lambert-Eaton myasthenic syndrome, if the test is available in the [facility] system. * We will check B12, folate, TSH, B1, B6, CPK and aldolase. * PT OT evaluate gait. * Optimize control of diabetes. * Neurology will follow.
[2020-04-28] MEDS: FLUCONAZOLE 100 MG TAB PO SCH (14:25)
[2020-04-28] MEDS ORDERED: Magnesium Replacement Protocol 1 EACH MISC MISCELLANE PRN (15:49)
[2020-04-28] MEDS ORDERED: Potassium Replacement Protocol 1 EACH MISC MISCELLANE PRN (15:49)
[2020-04-28] MEDS: BARIUM SULFATE 450 ML ORAL.SUSP BOTTLE PO PRN ×2 (16:39→19:30)
[2020-04-28] MEDS: POTASSIUM CHLORIDE ER 20 MEQ TAB.ER PO SCH ×5 (16:42→23:17)
[2020-04-28 16:57] LABS: Glucose,Whole Blood 221 mg/dL (75-99)
--- NOTE | 2020-04-28 17:22 | PN ---
PROGRESS NOTE DATE OF SERVICE: 04/28/2020 This 70-year-old woman was admitted with significant weakness and metastatic malignancy. The patient complained of bilateral weakness. Neurology has seen the patient and recommended MRI and multiple evaluations also. PT/OT is evaluating the patient for possible ECF rehab. No chest pain. No palpitations. No fever. Past medical history reviewed. REVIEW OF SYSTEMS: CARDIOVASCULAR SYSTEM: No angina, palpitations. RESPIRATORY SYSTEM: As mentioned earlier. GI: As mentioned earlier. : No dysuria or retention. NERVOUS SYSTEM: As mentioned earlier. CURRENT MEDICATIONS: Reviewed. They include Ventolin, hydroxide, albuterol, Xanax, Tenormin, Diflucan, Lasix, Neurontin, Glucotrol, heparin, Dilaudid, Zestril, Mycostatin, Zosyn. PHYSICAL EXAMINATION: Patient is alert, oriented x3. Pulse is 66, blood pressure 127/52, respiration 18, temperature 97.7, pulse ox 94% on 3 L. HEENT: Conjunctivae normal. NECK: No jugular venous distention. CARDIOVASCULAR SYSTEM: S1, S2 muffled. RESPIRATORY SYSTEM: Breath sounds diminished at the bases. A few scattered rhonchi and crackles. ABDOMEN: Soft, non-tender. NERVOUS SYSTEM: No focal deficit. LABS: Sodium 137, potassium 3.4. ASSESSMENT: 1. Carcinoma of breast with multiple metastases and weakness. Rule out spinal metastases and paraplegia. 2. Multiple lung masses secondary to metastatic malignancy. 3. Bilateral pleural effusion. 4. Gait dysfunction. 5. Change in mental status, metabolic encephalopathy, multifactorial. 6. History of congestive heart failure and recent hospital admission. 7. Diabetes mellitus, type 2. 8. History of gastroesophageal reflux disease. 9. Hypertension. 10.Hypothyroidism. 11.Chronic hypoxic respiratory failure, on 2 L nasal cannula at home. 12.History of shingles. 13.History of left elbow fracture and surgery. 14.History of nicotine dependence. 15.Obesity with body mass index of 36.8. RECOMMENDATIONS AND DISCUSSION: I recommend to continue current medications, continue with the monitoring, symptomatic treatment. Otherwise at this time I would recommend potassium supplementation. Evaluation by Neurology is recommended. Symptomatic treatment will be provided. Sensorium was slightly improved. PT/OT evaluation and possible ECF rehab. Further recommendations to follow. MMODL / IJN: [id number] /
[2020-04-28] MEDS: methylPREDNISolone SOD SUCCI 125 MG/2 ML VIAL IV SCH ×2 (17:52→23:19)
--- NOTE | 2020-04-28 19:28 | P.CONS ---
History of Present Illness - Reason for Consult Consult date: 04/28/20 Oncology care Requesting physician: Kike Cisse - Chief Complaint weakness - History of Present Illness Mrs. Balderrama is a very pleasant 70-year-old female patient of Dr. miky humphrey with a history of metastatic breast cancer dating back to 08/12 14. 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 The primary was in the left breast. The mass had been present for 8 years prior to being biopsied. Patient has had a variety of treatments including radiation to painful bony metastases, chemotherapy, monoclonal antibody therapy, aromatase inhibitor. She did well for several years. May 2017 follow up PET scan showed redevelopment of left breast disease and liver metastases. She was started on treatment with Herceptin/Faslodex/perjeta/Xgeva and did well until May 2019 when PET scan showed progression of lung metastases. She started on oral targeted piqray 07/02. Piqray was stopped in early 2019 due to side effects (severe hyperglyce denny). Patient was then placed on Kadcyla (TDM1). She last saw in March 2017. Follow-up scans were recommended, patient declined at that time. Last seen in office 03/31. Last kadcyla 04/13. Next appt 05/[address] Felipe 05/11 at 945. Patient states that after her last treatment she has had a progressive decline, she has been to the emergency department several times. Her main complaints are progressive weakness, lack of appetite, dizziness, she has also had several falls. She denies fevers, chest pain, she does have abdominal discomfort, she denies dysuria or hematuria, hematochezia or melena, constipation or diarrhea but, she can't recall her last bowel movement. Review of Systems 14 point ROS is as stated in HPI Past Medical History Past Medical History: Cancer, Heart Failure, Diabetes Mellitus, GERD/Reflux, Hypertension, Thyroid Disorder Additional Past Medical History / Comment(s): Metastatic L breast cancer-mets to bone/spine/lung and has had chemo/radiation and hormonal treatments, lately using oxygen at 2L/NC, NIDDM type II-now since wt loss is diet controlled, neuropathy legs/feet/hands, shingelles and since has had poor L eye vision, L elbow fracture with surgery and since has had limited ROM with that arm/hand, L leg cellulitis, hypothyroid, arthritis bilateral knees/hands and back. History of Any Multi-Drug Resistant Organisms: None Reported Past Surgical History: No Surgical Hx Reported, Breast Surgery, Heart Catheterization, Orthopedic Surgery Additional Past Surgical History / Comment(s): L breast core bx, L elbow fracture/hardware, R chest port/portocathogram. Past Anesthesia/Blood Transfusion Reactions: No Reported Reaction Additional Past Anesthesia/Blood Transfusion Reaction / Comm: no previous anesthesia Smoking Status: Former smoker - Past Family History Father Family Medical History: Cancer Additional Family Medical History / Comment(s): Lung and prostate cancer. Father was a smoker. Mother Family Medical History: Cancer Additional Family Medical History / Comment(s): Breast cancer and blood clots Sister(s) Family Medical History: Blood Disorder Additional Family Medical History / Comment(s): blood clots Daughter(s) Family Medical History: Blood Disorder Additional Family Medical History / Comment(s): blood clots Medications and Allergies Home Medications Medication Instructions Recorded Confirmed Type Enalapril Maleate 10 mg PO DAILY 09/16/14 04/27/20 History Levothyroxine Sodium [Synthroid] 125 mcg PO DAILY 09/16/14 04/27/20 History atenoloL [Tenormin] 25 mg PO DAILY 09/16/14 04/27/20 History traMADol HCL [Ultram] 100 mg PO Q6H PRN 06/19/17 04/27/20 History Gabapentin [Neurontin] 400 mg PO QID 08/27/19 04/27/20 History glipiZIDE [Glucotrol] 10 mg PO AC-BID 08/27/19 04/27/20 History Furosemide [Lasix] 40 mg PO BID 04/27/20 04/27/20 History Allergies Allergy/AdvReac Type Severity Reaction Status Date / Time anastrozole Allergy Unknown Verified 04/27/20 13:42 ciprofloxacin [From Cipro] Allergy Unknown Verified 04/27/20 13:42 ibuprofen Allergy Swelling Verified 04/27/20 13:42 Iodinated Contrast Media Allergy Rash/Hives Verified 04/27/20 13:42 [Iodinated Contrast Media - IV Dye] Physical Exam Vitals: Vital Signs Temp Pulse Pulse Resp BP BP Pulse Ox 04/28/20 07:46 80 04/28/20 07:30 76 04/28/20 05:00 97.9 F 81 16 146/68 94 L 04/27/20 21:00 98.2 F 84 20 169/84 96 04/27/20 19:57 98.2 F 87 18 150/90 97 04/27/20 17:06 16 04/27/20 16:17 96.3 F L 75 19 157/63 95 04/27/20 15:03 71 18 137/72 96 04/27/20 13:56 98.4 F 70 18 107/90 96 04/27/20 12:30 67 18 121/70 97 04/27/20 12:08 70 18 112/68 96 04/27/20 11:25 70 16 165/87 94 L 04/27/20 10:22 98.3 F 69 18 131/62 96 Intake and Output 04/27/20 04/28/20 04/28/20 22:59 06:59 14:59 Intake Total 950 560 Output Total 1 Balance 949 560 Intake: Intake, IV Titration 60 260 Amount Piperacillin-Tazobactam 3 100 .375 gm In Sodium Chloride 0.9% 100 ml @ 25 mls/hr IVPB Q8HR [facility] Rx# :[id number] Sodium Chloride 0.9% 1, 60 160 000 ml @ 20 mls/hr IV . Q24H [facility] Rx#:[id number] Oral 890 300 Output: Urine/Stool Mix 1 Other: Voiding Method Bedside Commode Bedpan # Voids 2 4 Weight 88.451 kg 87 kg - Constitutional General appearance: cooperative, no acute distress, obese - EENT dry mucus membranes Eyes: anicteric sclerae, EOMI ENT: hearing grossly normal, pharyngeal erythema, thrush - Neck Neck: no lymphadenopathy - Respiratory Respiratory: bilateral: diminished - Cardiovascular Rhythm: regular Heart sounds: normal: S1, S2 Abnormal Heart Sounds: no systolic murmur, no diastolic murmur, no rub, no S3 Gallop, no S4 Gallop, no click, no other leg Peripheral Edema: bilateral: Trace - Gastrointestinal General gastrointestinal: decreased bowel sounds, distended, soft, tenderness - Integumentary Integumentary: pale - Neurologic Neurologic: CNII-XII intact - Musculoskeletal Musculoskeletal: generalized weakness - Psychiatric difficulty recalling recent events, repeating herself Psychiatric: A&O x's 3, appropriate affect Results CBC & Chem 7: 04/27/20 10:55 04/28/20 04:47 Labs: Abnormal Lab Results - Last 24 Hours (Table) 04/27/20 04/27/20 04/27/20 Range/Units 10:55 10:55 10:55 Hgb 11.2 L (11.4-16.0) gm/dL RDW 20.2 H (11.5-15.5) % APTT 32.3 H (22.0-30.0) sec D-Dimer 5.82 H (<0.60) mg/L FEU Carbon Dioxide (22-30) mmol/L Glucose (74-99) mg/dL POC Glucose (mg/dL) (75-99) mg/dL AST (14-36) U/L Albumin (3.5-5.0) g/dL Urine Nitrite Positive H (Negative) Urine Bacteria Rare H (None) /hpf 04/27/20 04/27/20 04/28/20 Range/Units 10:55 21:48 04:01 Hgb (11.4-16.0) gm/dL RDW (11.5-15.5) % APTT (22.0-30.0) sec D-Dimer (<0.60) mg/L FEU Carbon Dioxide 31 H (22-30) mmol/L Glucose 139 H (74-99) mg/dL POC Glucose (mg/dL) 352 H 340 H (75-99) mg/dL AST 76 H (14-36) U/L Albumin 3.1 L (3.5-5.0) g/dL Urine Nitrite (Negative) Urine Bacteria (None) /hpf 04/28/20 Range/Units 06:53 Hgb (11.4-16.0) gm/dL RDW (11.5-15.5) % APTT (22.0-30.0) sec D-Dimer (<0.60) mg/L FEU Carbon Dioxide (22-30) mmol/L Glucose (74-99) mg/dL POC Glucose (mg/dL) 309 H (75-99) mg/dL AST (14-36) U/L Albumin (3.5-5.0) g/dL Urine Nitrite (Negative) Urine Bacteria (None) /hpf CT scan - chest: report reviewed CT Scan - head: report reviewed Assessment and Plan (1) Dyspnea Current Visit: Yes Status: Acute Priority: High Code(s): R06.00 - DYSPNEA, UNSPECIFIED SNOMED Code(s): 863257293 (2) Generalized weakness Current Visit: Yes Status: Acute Priority: High Code(s): R53.1 - WEAKNESS SNOMED Code(s): 17021733 (3) Metastatic breast cancer Current Visit: Yes Status: Chronic Priority: High Code(s): C50.919 - MALIGNANT NEOPLASM OF UNSP SITE OF UNSPECIFIED FEMALE BREAST SNOMED Code(s): 312401271 Plan: I explained to patient that she reasons for her weakness could be infection, in general poor oral intake/reaction to her treatment or progressive malignancy. I reminded her that Dr. miky humphrey wanted her to be followed up last month with imaging as she had been on treatment for quite some time, she refused. Patient states feeling a little bit better being on the antibiotics. She is feeling a little better with some hydration. She will try to tolerate some more oral intake. I did encourage her to have follow-up scans in regards to her malignancy. She agreed to the same. These are ordered. After chart review at the office: found that CA-15-3 was being used as a guide. When she started on TDM 1 inhibitor her CA-15-3 was in the 700 range. 03/10 it was 762. 04/01 it was 862. Doctor attests: I performed a history and physical examination of this patient, developed impression and plan of care, discussed with dictator. I agree with dictators note, documented as a scribe.
[2020-04-28 21:10] LABS: Glucose,Whole Blood 271 mg/dL (75-99)
--- NOTE | 2020-04-28 21:33 | CT ---
EXAMINATION TYPE: CT abdomen pelvis w con DATE OF EXAM: 04/28/2020 COMPARISON: HISTORY: treatment f/u. Weakness, dyspnea, lung mets. PT allergic, premedicated and with Redicat. CT DLP: 1927.40 mGycm Automated exposure control for dose reduction was used. CONTRAST: Performed with IV Contrast, patient injected with 100 mL of Isovue 300. Images obtained from the diaphragm to the floor the pelvis with IV contrast. There is moderate size right pleural effusion. There is small left pleural effusion. There is extensi ve airspace infiltrates and atelectasis in the right lower lobe and to a lesser extent the left lung base. There is no pericardial effusion. Liver shows no focal defect. There is normal size gallbladder. The bile ducts are not dilated. Spleen is intact. There is no pancreatic mass. There is 1 cm calcified gallstone. There is no adrenal mass. Kidneys show satisfactory contrast opacification. There is right side hydro nephrosis and delayed right side pyelogram. Bladder distends smoothly. There are phleboliths in the p ernst. Distal right ureter is not well seen. Left ureter does not appear dilated. There is no retrope ritoneal adenopathy. Abdominal aorta is atheromatous. There is normal oral contrast opacification of bowel. There is no sign of a bowel obstruction. There is no mesenteric edema. There is no evidence of free air. There is no ascites. There is dilated rectum with fecal material. Rectum measures 8 cm. There is multilevel moderate spondylotic changes in the lumbar spine. There is extensive osteoblastic changes in the bony pelvis and femurs and in Lumbar spine and visualized thoracic spine. IMPRESSION: Delayed right side pyelogram and right-sided hydronephrosis consistent with distal ureteral obstructi on. Distal right ureter not well visualized. Bilateral pleural effusions and lower lobe pulmonary consolidation and atelectasis. Right renal obstruction is new compared to the PET CT scan of 09/27/2018. Extensive osteoblastic metastatic disease.
--- NOTE | 2020-04-29 00:04 | P.CONS ---
History of Present Illness - Reason for Consult Consult date: 04/28/20 Pressure ulcer on the coccyx Requesting physician: Fatoumata Gagnon - Chief Complaint Generalized weakness , chronic nonhealing wound to the sacral area x weeks - History of Present Illness Patient is a 70-year-old female with a past medical history significant for metastatic breast cancer patient has been brought into the ER by family with concern for generalized weakness and also increased swelling in the lower extremity and shortness of breath, patient also have a history of for a chronic nonhealing wound at the sacral area when asked specifically with the ly crawford. Denies having any headache or chest pain or shortness of breath or cough no nausea vomiting or abdominal pain or diarrhea. Complaining of some pain to the sacral wound area but unable to elaborate it any further, patient on arrival to the ear was afebrile, normal white count. Did have elevated d-dimer, patient did have elevated AST, UA was nitrite positive patient did have a chest x-ray with evidence of bilateral airspace disease, referred for pneumonia diffuse skeletal metastasis, the patient did have CT angiogram of the stitches which was negative for PE pulmonary metastatic disease notice bilateral pleural effusion and areas of atelectasis patient has been started on Zosyn and infectious disease was consulted for further management Review of Systems Positive point has been mentioned in the HPI rest of the systems are negative Past Medical History Past Medical History: Cancer, Heart Failure, Diabetes Mellitus, GERD/Reflux, Hypertension, Thyroid Disorder Additional Past Medical History / Comment(s): Metastatic L breast cancer-mets to bone/spine/lung and has had chemo/radiation and hormonal treatments, lately using oxygen at 2L/NC, NIDDM type II-now since wt loss is diet controlled, neuropathy legs/feet/hands, shingelles and since has had poor L eye vision, L elbow fracture with surgery and since has had limited ROM with that arm/hand, L leg cellulitis, hypothyroid, arthritis bilateral knees/hands and back. History of Any Multi-Drug Resistant Organisms: None Reported Past Surgical History: No Surgical Hx Reported, Breast Surgery, Heart Catheterization, Orthopedic Surgery Additional Past Surgical History / Comment(s): L breast core bx, L elbow fracture/hardware, R chest port/portocathogram. Past Anesthesia/Blood Transfusion Reactions: No Reported Reaction Additional Past Anesthesia/Blood Transfusion Reaction / Comm: no previous anesthesia Smoking Status: Former smoker - Past Family History Father Family Medical History: Cancer Additional Family Medical History / Comment(s): Lung and prostate cancer. Father was a smoker. Mother Family Medical History: Cancer Additional Family Medical History / Comment(s): Breast cancer and blood clots Sister(s) Family Medical History: Blood Disorder Additional Family Medical History / Comment(s): blood clots Daughter(s) Family Medical History: Blood Disorder Additional Family Medical History / Comment(s): blood clots Medications and Allergies Home Medications Medication Instructions Recorded Confirmed Type Enalapril Maleate 10 mg PO DAILY 09/16/14 04/27/20 History Levothyroxine Sodium [Synthroid] 125 mcg PO DAILY 09/16/14 04/27/20 History atenoloL [Tenormin] 25 mg PO DAILY 09/16/14 04/27/20 History traMADol HCL [Ultram] 100 mg PO Q6H PRN 06/19/17 04/27/20 History Gabapentin [Neurontin] 400 mg PO QID 08/27/19 04/27/20 History glipiZIDE [Glucotrol] 10 mg PO AC-BID 08/27/19 04/27/20 History Furosemide [Lasix] 40 mg PO BID 04/27/20 04/27/20 History Allergies Allergy/AdvReac Type Severity Reaction Status Date / Time anastrozole Allergy Unknown Verified 04/27/20 13:42 ciprofloxacin [From Cipro] Allergy Unknown Verified 04/27/20 13:42 ibuprofen Allergy Swelling Verified 04/27/20 13:42 Iodinated Contrast Media Allergy Rash/Hives Verified 04/27/20 13:42 [Iodinated Contrast Media - IV Dye] Physical Exam Vitals: Vital Signs Temp Pulse Pulse Resp BP Pulse Ox 04/28/20 19:58 98.4 F 78 16 156/71 97 04/28/20 19:47 70 16 04/28/20 19:37 74 16 04/28/20 16:10 74 16 04/28/20 15:59 72 16 04/28/20 11:30 76 04/28/20 11:22 76 04/28/20 11:11 97.7 F 66 18 127/52 95 04/28/20 07:46 80 04/28/20 07:30 76 04/28/20 05:00 97.9 F 81 16 146/68 94 L Intake and Output 04/28/20 04/28/20 04/29/20 14:59 22:59 06:59 Intake Total 180 Balance 180 Intake: Intake, IV Titration 180 Amount Piperacillin-Tazobactam 3 100 .375 gm In Sodium Chloride 0.9% 100 ml @ 25 mls/hr IVPB Q8HR [facility] Rx# :[id number] Sodium Chloride 0.9% 1, 80 000 ml @ 20 mls/hr IV . Q24H [facility] Rx#:[id number] Other: Voiding Method Bedpan Bedpan Diaper Diaper Incontinent Incontinent # Voids 4 Weight 87 kg GENERAL DESCRIPTION: An elderly female lying in bed, no distress. No tachypnea or accessory muscle of respiration use. HEENT: Shows Pallor , no scleral icterus. Oral mucous membrane is dry. No pharyngeal erythema or thrush NECK: Trachea central, no thyromegaly. LUNGS: Unlabored breathing. Decreased breath sound at the base. No wheeze or crackle. HEART: S1, S2, regular rate and rhythm. No loud murmur ABDOMEN: Soft, no tenderness , guarding or rigidity, no organomegaly EXTREMITIES: No edema of feet. SKIN: No rash, no masses palpable. Stage III sacral pressure ulcer with some slough tissue the baseof the surrounding redness or any drainage NEUROLOGICAL: The patient is awake, alert, oriented x3, mood and affect normal. Results CBC & Chem 7: 04/27/20 10:55 04/28/20 22:43 Labs: Abnormal Lab Results - Last 24 Hours (Table) 04/28/20 04/28/20 04/28/20 Range/Units 04:01 04:47 04:47 Potassium 3.4 L (3.5-5.1) mmol/L Carbon Dioxide 32 H (22-30) mmol/L BUN 18 H (7-17) mg/dL Glucose 312 H (74-99) mg/dL POC Glucose (mg/dL) 340 H (75-99) mg/dL Hemoglobin A1c 7.0 H (4.0-6.0) % 04/28/20 04/28/20 04/28/20 Range/Units 06:53 10:58 16:55 Potassium (3.5-5.1) mmol/L Carbon Dioxide (22-30) mmol/L BUN (7-17) mg/dL Glucose (74-99) mg/dL POC Glucose (mg/dL) 309 H 258 H 221 H (75-99) mg/dL Hemoglobin A1c (4.0-6.0) % 04/28/20 04/28/20 04/28/20 Range/Units 19:28 21:09 22:43 Potassium 3.2 L 3.3 L (3.5-5.1) mmol/L Carbon Dioxide (22-30) mmol/L BUN (7-17) mg/dL Glucose (74-99) mg/dL POC Glucose (mg/dL) 271 H (75-99) mg/dL Hemoglobin A1c (4.0-6.0) % Microbiology - Last 24 Hours (Table) 04/28/20 03:49 Wound Culture - Preliminary Buttock 04/28/20 03:49 Anaerobic Culture - Preliminary Buttock Assessment and Plan Assessment: 1- patient is a 70-year-old female with a past medical history significant for metastatic breast cancer and this patient has been brought to the hospital with generalized weakness. Appetite and unable really to be taken care of at home in this patient who did have CT angiogram of the chest did not show any PE or any significant consolidation suggestive of pneumonia 2-patient with stage III sacral pressure ulcer with some slough tissue no surrounding cellulitis (1) Stage III pressure ulcer of sacral region Current Visit: Yes Status: Acute Code(s): L89.153 - PRESSURE ULCER OF SACRAL REGION, STAGE 3 SNOMED Code(s): 058732033 Plan: 1-local wound care with medahoney followed by moist dressing daily of the pressure 2-Zosyn 3.75 mg to continue waiting for the culture finalized We will follow on clinical condition and cultures to further adjust medication if needed Thank you for this consultation will follow this patient with you Time with Patient: Greater than 30
[2020-04-29] MEDS: POTASSIUM CHLORIDE ER 20 MEQ TAB.ER PO SCH (00:29)
[2020-04-29] MEDS: LEVOTHYROXINE 125 MCG TAB PO SCH (05:43)
[2020-04-29] MEDS: methylPREDNISolone SOD SUCCI 125 MG/2 ML VIAL IV SCH ×3 (05:44→18:22)
[2020-04-29] MEDS: ALBUTEROL NEBULIZED 2.5 MG/3 ML INHALATION SCH ×4 (07:28→20:00)
[2020-04-29 07:54] LABS: Glucose,Whole Blood 224 mg/dL (75-99)
[2020-04-29] MEDS: INSULIN ASPART (NovoLOG) 100 UNIT/ML VIAL SQ SCH ×4 (08:45→22:13)
[2020-04-29] MEDS: PIPERACILLIN-TAZOBACTAM 3.375 GM in SODIUM CHLORIDE 0.9% 100 ML IVPB SCH ×2 (08:45→16:51)
[2020-04-29] MEDS: FLUCONAZOLE 100 MG TAB PO SCH (08:46)
[2020-04-29] MEDS: GABAPENTIN 400 MG CAP PO SCH ×4 (08:46→22:12)
[2020-04-29] MEDS: PANTOPRAZOLE 40 MG TABLET PO SCH (08:46)
[2020-04-29] MEDS: lisinopriL 20 MG TAB PO SCH (08:46)
[2020-04-29] MEDS: atenoloL 25 MG TAB PO SCH (08:46)
[2020-04-29] MEDS: glipiZIDE 10 MG TAB PO SCH ×2 (08:46→16:52)
[2020-04-29] MEDS: MAG HYDROX/AL HYDROX/SIMETH 30 ML, LIDOCAINE VISCOUS 30 ML, diphenhydrAMINE ELIXIR 75 M... PO SCH ×12 (08:47→22:14)
[2020-04-29] MEDS: NYSTATIN 100,000 UNIT/GM POWD 15 GM TOPICAL SCH ×2 (08:47→22:14)
[2020-04-29] MEDS: FUROSEMIDE 10 MG/ML 4 ML VIAL IV SCH ×2 (08:47→22:12)
[2020-04-29] MEDS: HEPARIN SODIUM,PORCINE 5,000 UNIT/ML 1 ML VIAL SQ SCH ×2 (08:47→22:13)
[2020-04-29 09:58] LABS: Magnesium 1.4 mg/dL (1.5-2.4)
[2020-04-29 11:36] LABS: Glucose,Whole Blood 201 mg/dL (75-99)
[2020-04-29] MEDS: INSULIN DETEMIR (LEVEMIR) 100 UNIT/ML SYR SQ SCH ×2 (11:58→22:13)
--- NOTE | 2020-04-29 15:55 | MR ---
EXAMINATION TYPE: MR brain/cspine wo/w DATE OF EXAM: 04/29/2020 COMPARISON: CT brain wo 04/27/2020 HISTORY: Leg weakness, rule out brain or spinal metastasis CONTRAST: Performed utilizing 8.5 mL intravenous Gadavist gadolinium contrast. TECHNIQUE: Multiplanar, multiecho imaging on a 3.0 Vernell magnet is performed through the brain. Stud y is not performed within 24 hours of arrival to the hospital. The craniovertebral junction is normal. The pituitary is normal. Diffusion-weighted imaging is performed. No abnormal hyperintensity is present to suggest an acute i ntracranial infarct or acute ischemic change. There are areas of increased signal within the white matter of the left frontal lobe and within the p osterior left parietal lobe. Some focal uptake may be within the anterior left temporal lobe. There a re additional punctate periventricular white matter changes which are nonspecific but could be relate d to microvascular ischemic change. Ventricles and sulci are appropriate for the patient age. Right maxillary sinus is nearly opacified with mucous retention cysts. Graft following contrast admin istration suspicious enhancement within the brain is not identified. However, there is some irregular thickening along the left parietal lobe with some more focal increased uptake adjacent to the left f rontal lobe. Some mild thickening of the meninges near the right temporal region may be present. Lept omeningeal metastasis should be considered. The borders are ill-defined at this location. On the post contrast imaging there is also some thickening and mild enhancement probably right parietal-occipital region suspicious for metastatic lesion. IMPRESSIONS: 1. Thickening and ill definition of the meninges of the left frontal and left parietal regions suspic ious for metastasis. 2. Metastatic lesion within the left parietal-occipital bone. An additional lesion may be in the righ t frontal region near the vertex. 3. Mild periventricular white matter ischemic type changes. EXAMINATION TYPE: MR brain/cspine wo/w DATE OF EXAM: 04/29/2020 COMPARISON: None HISTORY: Leg weakness, rule out brain or spinal metastasis CONTRAST: Performed utilizing 8.5 mL intravenous Gadavist gadolinium contrast. TECHNIQUE: Multiplanar multiecho imaging on a 3.0 Vernell magnet is performed through the cervical spin e. FINDINGS: The craniovertebral junction is normal. Vertebral body alignment is normal. There is sig nal abnormality within C3 and C5 and along the superior endplate of C4 suspicious for metastatic dise ase. These areas are enhancing. There is Greater involvement with enhancement through C4 than appreci ated on the precontrast imaging. T1-2: There is central protrusion with mild anterior thecal sac compression. No spinal canal stenosis or neural foraminal stenosis is evident. C7-T1: There is a small central protrusion with minimal anterior thecal sac compression. No spinal c anal stenosis is present. Left foraminal narrowing is present from uncovertebral joint hypertrophy.. C6-7: There is a large right paracentral disc herniation with cord contact and some cord deformity. S kaitlin canal stenosis posterior to the disc herniation is evident. Severe bilateral foraminal narrowin g is present due to uncovertebral joint hypertrophy. Some AP spinal canal stenosis is present. Cord d eformity is noted.. C5-6: There is a large central disc herniation with cord contact and cord deformity. AP spinal canal stenosis present. Severe bilateral foraminal narrowing is present.. C4-5: Broad-based disc bulge is present with moderate anterior thecal sac compression. Cord contact i s evident. There is likely some cord deformity. Spinal canal stenosis present. Bilateral severe enmanuel inal stenosis is present. C3-4: Disc bulge is present with anterior thecal sac compression. Cord contact and cord deformity is present. Spinal canal stenosis and foraminal stenosis is present.. C2-3: Mild central disc bulge has anterior thecal sac contact. Cord contact is evident. Spinal canal stenosis is not evident. Neural foramen appear patent.. IMPRESSIONS: 1. Disc bulging with anterior thecal sac compression. This also has cord compression and is contribut ing to spinal canal stenosis. 2. Uncovertebral joint hypertrophy contributing to bilateral foraminal narrowing within the cervical spine. 3. Metastatic lesions within the C3-C5 vertebral bodies. Additional heterogeneity is within the cervi chanelle vertebral levels which may be additional metastatic disease
--- NOTE | 2020-04-29 16:38 | PN ---
PROGRESS NOTE DATE OF SERVICE: 04/29/2020 This 70-year-old woman was admitted with significant weakness and metastatic malignancy. Multiple evaluations have been done. The patient was also seen by Dr. Paul from Infectious Disease for pressure ulcers on the coccyx which are stage III. Local wound care and Zosyn have been initiated. Otherwise, CT scan of the abdomen and pelvis showed right-sided hydronephrosis and bilateral pleural effusion and right renal obstruction, extensive osteoblastic metastatic disease also. Past medical history reviewed. REVIEW OF SYSTEMS: CARDIOVASCULAR SYSTEM: No angina, palpitations. RESPIRATORY SYSTEM: As mentioned earlier. GI: As mentioned earlier. : No dysuria or retention. NERVOUS SYSTEM: No numbness, weakness. CURRENT MEDICATIONS: Reviewed. They include Xanax, Tenormin, Diflucan, Lasix, Neurontin, Glucotrol, Dilaudid, Levemir, Zestril, p.r.n. medications. Doses are reviewed. PHYSICAL EXAMINATION: Patient is alert, oriented x2. Pulse 72, blood pressure 158/71, respiration 18, temperature 97.9, pulse ox 91% on 3 L. HEENT: Conjunctivae normal. NECK: No jugular venous distention. CARDIOVASCULAR SYSTEM: S1, S2 muffled. RESPIRATORY SYSTEM: Breath sounds diminished at the bases. Bilateral scattered rhonchi and crackles. ABDOMEN: Soft, non-tender. LEGS: No edema. No swelling. NERVOUS SYSTEM: No focal deficit. LABS: Labs at this time show magnesium is 1.4. Glucose is 224 and 201. Potassium 3.3. ASSESSMENT: 1. Carcinoma of breast with multiple metastases and weakness. Rule out spinal metastasis and paraplegia. 2. Multiple lung masses secondary to metastatic malignancy. 3. Bilateral pleural effusion. 4. Sacral decubitus, stage III, with possible sepsis, on IV Zosyn. 5. Gait dysfunction. 6. Change in mental status, metabolic encephalopathy, acute, multifactorial. 7. History of congestive heart failure recently and recent hospital admission. 8. Diabetes mellitus, type 2. 9. History of gastroesophageal reflux disease. 10.Hypertension. 11.Hypothyroidism. 12.History of chronic hypoxic respiratory failure, on 2 L nasal cannula at home. 13.History of shingles. 14.History of left elbow fracture and surgery. 15.History of nicotine dependence. 16.Obesity with body mass index of 36.8. RECOMMENDATIONS AND DISCUSSION: I recommend to continue current medications, continue with the monitoring, symptomatic treatment. Continue the antibiotics. Monitor closely. Further evaluation. Repeat labs. Closely follow with Neurology. Guarded prognosis. Further recommendations to follow. PT/OT and possible ECF rehab. MRI of the brain was also ordered. HOANG / ASHLEY: [id number] /
--- NOTE | 2020-04-29 16:49 | P.PN ---
Subjective Progress Note Date: 04/29/20 Patient was seen for a follow-up. Patient's is also present. Patient appears slightly more delirious, confused. Offers no complaints. MRI of the cervical spine with and without contrast showed disc bulging with anterior thecal sac compression. This also has cord compression and is contributing to spinal canal stenosis. Uncovertebral joint hypertrophy contributing to bilateral foraminal narrowing within the cervical spine. Metastatic lesions within the C3 to C5 vertebral bodies. Additional heterogeneity is within the cervical vertebral levels which may be additional metastatic disease. MRI of the brain with and without contrast shows thickening and ill-defined lesion of the meninges of the left frontal and left parietal region suspicious for metastasis. Metastatic lesion within the left parietal occipital bone. An additional lesion may be in the right frontal region near the vertex. Objective - Vital Signs Vital signs: Vital Signs Temp 97.9 F 04/29/20 12:48 Pulse 72 04/29/20 12:48 Resp 18 04/29/20 12:48 BP 158/71 04/29/20 12:48 Pulse Ox 91 L 04/29/20 12:48 Intake & Output 04/28/20 04/29/20 04/29/20 18:59 06:59 18:59 Intake Total 180 1040 Balance 180 1040 Weight 87 kg 86.6 kg Intake: Intake, IV Titration 180 440 Amount Piperacillin-Tazobactam 3 100 200 .375 gm In Sodium Chloride 0.9% 100 ml @ 25 mls/hr IVPB Q8HR [facility] Rx# :[id number] Sodium Chloride 0.9% 1, 80 240 000 ml @ 20 mls/hr IV . Q24H [facility] Rx#:[id number] Oral 600 Other: Voiding Method Bedpan Bedpan Diaper Diaper Incontinent Incontinent # Voids 4 3 # Bowel Movements 2 - Exam Patient slightly more confused. Detail testing deferred. - Labs CBC & Chem 7: 04/27/20 10:55 04/29/20 04:34 Labs: Abnormal Lab Results - Last 24 Hours (Table) 04/28/20 04/28/20 04/28/20 Range/Units 04:47 16:55 19:28 Potassium 3.2 L (3.5-5.1) mmol/L POC Glucose (mg/dL) 221 H (75-99) mg/dL Hemoglobin A1c 7.0 H (4.0-6.0) % Magnesium (1.5-2.4) mg/dL Creatine Kinase (26-186) U/L Vitamin B12 (200.0-944.0) pg/mL 04/28/20 04/28/20 04/29/20 Range/Units 21:09 22:43 04:34 Potassium 3.3 L (3.5-5.1) mmol/L POC Glucose (mg/dL) 271 H (75-99) mg/dL Hemoglobin A1c (4.0-6.0) % Magnesium 1.4 L (1.5-2.4) mg/dL Creatine Kinase 191 H (26-186) U/L Vitamin B12 1650.0 H (200.0-944.0) pg/mL 04/29/20 04/29/20 Range/Units 07:52 11:35 Potassium (3.5-5.1) mmol/L POC Glucose (mg/dL) 224 H 201 H (75-99) mg/dL Hemoglobin A1c (4.0-6.0) % Magnesium (1.5-2.4) mg/dL Creatine Kinase (26-186) U/L Vitamin B12 (200.0-944.0) pg/mL Microbiology - Last 24 Hours (Table) 04/28/20 03:49 Gram Stain - Preliminary Buttock Wound Culture - Preliminary Gram Neg Bacilli Gram Neg Bacilli#2 Assessment and Plan Assessment: * Metastatic breast cancer, with evidence of dural and spinal metastasis, with spinal cord compression. 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 * Diabetes poorly controlled with A1c 10.6. Plan: * MRI of brain and cervical spine with and without contrast revealed extensive spinal and dual metastasis. Probable cord compression. * Discussed with manager cafe, patient to undergo hospice care at this time. Discussed with patient's . * B12 1650, TSH 0.640 normal, hemoglobin A1c 7.0. Vitamin B1, B6 and folate levels are pending. CPK is mildly elevated 191/186. Aldolase pending. * Neurology will sign off.
[2020-04-29 17:14] LABS: Glucose,Whole Blood 150 mg/dL (75-99)
--- NOTE | 2020-04-29 17:27 | P.PN ---
Subjective Progress Note Date: 04/29/20 The patient is more alert today. She is following commands appropriately. While she seems to be overall more lucid compared to yesterday, she still has intervals of confusion with disorientation, as well as difficulty in finding words and replying to questions appropriately. She denies any headaches visual complaints. Her neck and back pain issues as well as lower extremity weakness which are chronic, are stable. No fever/chills/nausea/vomiting. However appetite has been quite poor with oral intake minimal. Objective - Vital Signs Vital signs: Vital Signs Temp 97.9 F 04/29/20 12:48 Pulse 72 04/29/20 12:48 Resp 18 04/29/20 12:48 BP 158/71 04/29/20 12:48 Pulse Ox 91 L 04/29/20 12:48 Intake & Output 04/28/20 04/29/20 04/29/20 18:59 06:59 18:59 Intake Total 180 1040 100 Balance 180 1040 100 Weight 87 kg 86.6 kg Intake: Intake, IV Titration 180 440 100 Amount Piperacillin-Tazobactam 3 100 200 100 .375 gm In Sodium Chloride 0.9% 100 ml @ 25 mls/hr IVPB Q8HR [facility] Rx# :[id number] Sodium Chloride 0.9% 1, 80 240 000 ml @ 20 mls/hr IV . Q24H [facility] Rx#:[id number] Oral 600 Other: Voiding Method Bedpan Bedpan Bedpan Diaper Diaper Diaper Incontinent Incontinent Incontinent # Voids 4 3 3 # Bowel Movements 2 1 - Constitutional General appearance: Present: no acute distress - EENT Eyes: Present: EOMI ENT: Present: hearing grossly normal, normal oropharynx - Respiratory Respiratory: bilateral: CTA - Cardiovascular Rhythm: regular Heart sounds: normal: S1, S2 - Gastrointestinal General gastrointestinal: Present: normal bowel sounds, soft - Integumentary Integumentary: Present: normal - Neurologic Neurologic: Present: CNII-XII intact - Musculoskeletal Musculoskeletal: Present: generalized weakness, strength equal bilaterally - Psychiatric Psychiatric Comment(s): As noted above - Labs CBC & Chem 7: 04/27/20 10:55 04/29/20 04:34 Labs: Abnormal Lab Results - Last 24 Hours (Table) 04/28/20 04/28/20 04/28/20 Range/Units 04:47 19:28 21:09 Potassium 3.2 L (3.5-5.1) mmol/L POC Glucose (mg/dL) 271 H (75-99) mg/dL Hemoglobin A1c 7.0 H (4.0-6.0) % Magnesium (1.5-2.4) mg/dL Creatine Kinase (26-186) U/L Vitamin B12 (200.0-944.0) pg/mL 04/28/20 04/29/20 04/29/20 Range/Units 22:43 04:34 07:52 Potassium 3.3 L (3.5-5.1) mmol/L POC Glucose (mg/dL) 224 H (75-99) mg/dL Hemoglobin A1c (4.0-6.0) % Magnesium 1.4 L (1.5-2.4) mg/dL Creatine Kinase 191 H (26-186) U/L Vitamin B12 1650.0 H (200.0-944.0) pg/mL 04/29/20 04/29/20 Range/Units 11:35 17:13 Potassium (3.5-5.1) mmol/L POC Glucose (mg/dL) 201 H 150 H (75-99) mg/dL Hemoglobin A1c (4.0-6.0) % Magnesium (1.5-2.4) mg/dL Creatine Kinase (26-186) U/L Vitamin B12 (200.0-944.0) pg/mL Microbiology - Last 24 Hours (Table) 04/28/20 03:49 Gram Stain - Preliminary Buttock Wound Culture - Preliminary Gram Neg Bacilli Gram Neg Bacilli#2 Assessment and Plan (1) Meningeal carcinomatosis Narrative/Plan: The patient has continued to have mental status issues with confusion and aphasia despite improvement otherwise. Therefore MRI of the brain was performed today. The results showed evidence of bony metastases in the calvarium, but also significant meningeal thickening in the anterior aspect of the brain. Results were discussed with radiation oncology also reviewed the scan, as well as neurology. They were in agreement with the radiologist's report that the findings appear to represent meningeal carcinomatosis unfortunately. - The results were discussed in detail with the patient and her , along with implications. They were advised that prognosis in these cases is uniformly poor. Standard systemic therapy is generally not effective, and the patient would require intrathecal treatment. Even with intrathecal treatment, chances of efficacy or a reasonable duration of response are very poor. - Based on the above, as well as evidence of systemic progression and her poor performance status, at this time it would be most reasonable to consider comfort care in my opinion. This was discussed in detail with the patient and her who are in agreement. In fact due to her decline prior to this hospital admission he had already been considering the same. - Hospice consult was therefore be placed. Current Visit: Yes Status: Acute Code(s): C79.49 - SECONDARY MALIGNANT NEOPLASM OF OTH PARTS OF NERVOUS SYSTEM; C80.1 - MALIGNANT (PRIMARY) NEOPLASM, UNSPECIFIED SNOMED Code(s): 207251971 (2) Metastatic breast cancer Narrative/Plan: There now appears to be progression with development of leptomeningeal metastasis, with implications as noted above. The patient's CT scans did not show any significant progression in the lung or visceral structures. The patient has known diffuse bony metastatic disease which is difficult to assess for progression. However labs in the office have shown serial increased of her tumor markers indicating progression. This was also discussed with the patient. Current Visit: Yes Status: Chronic Priority: High Code(s): C50.919 - MALIGNANT NEOPLASM OF UNSP SITE OF UNSPECIFIED FEMALE BREAST SNOMED Code(s): 956866865 (3) Generalized weakness Narrative/Plan: This is multifactorial, from cancer progression especially leptomeningeal i nvolvement, as well as superimposed CHF and possible UTI. The patient has been on antibiotics and his disease status is improved.. But there has been some improvement, generalized weakness persists from her underlying malignancy with progression. It was discussed with the patient and her family that this is likely to progress along with progression of her underlying malignancy, due to which involvement of hospice would be strongly recommended to keep the patient as comfortable as possible. Current Visit: Yes Status: Acute Priority: High Code(s): R53.1 - WEAKNESS SNOMED Code(s): 45965436
[2020-04-29] MEDS: traMADol 50 MG TAB PO PRN (19:43)
[2020-04-29 21:50] LABS: Glucose,Whole Blood 157 mg/dL (75-99)
--- NOTE | 2020-04-29 23:23 | PN ---
PROGRESS NOTE DATE OF SERVICE: 04/29/2020 REASON FOR FOLLOWUP: Stage III infected sacral pressure ulcer. INTERVAL HISTORY: The patient is currently afebrile. The patient seems to be more awake and alert today. She is breathing comfortably. Denies having any chest pain or shortness of breath or cough. No abdominal pain or any worsening pain to the sacral wound area. PHYSICAL EXAMINATION: Blood pressure 162/63 with a pulse of 78, temperature 97.8. She is 92% on 3 L nasal cannula. General description is an elderly female lying in bed in no distress. RESPIRATORY SYSTEM: Unlabored breathing. Clear to auscultation anteriorly. HEART: S1, S2. Regular rate and rhythm. ABDOMEN: Soft. No tenderness. LABS: No new labs have been obtained. Local culture positive for Gram-negative. DIAGNOSTIC IMPRESSION AND PLAN: Patient with a stage III sacral pressure ulcer with concern for possible secondary cellulitis. Local culture with Gram-negative. Patient is covered with Zosyn. Local care to continue with Medihoney followed by moist dressing and keep the area off the pressure. MMODL / IJN: [id number] /
[2020-04-30] MEDS: PIPERACILLIN-TAZOBACTAM 3.375 GM in SODIUM CHLORIDE 0.9% 100 ML IVPB SCH ×2 (01:49→08:02)
[2020-04-30] MEDS: methylPREDNISolone SOD SUCCI 125 MG/2 ML VIAL IV SCH ×4 (01:50→17:24)
[2020-04-30] MEDS: LEVOTHYROXINE 125 MCG TAB PO SCH (06:30)
[2020-04-30 07:07] LABS: Anisocytosis Slight; Basophils % (A) 0 %; Eosinophils % (A) 0 %; HCT 43.4 % (34.0-46.0); HGB 13.4 gm/dL (11.4-16.0); Hypochromasia Moderate; Lymphocytes # (A) 0.4 k/uL (1.0-4.8); Lymphocytes % (A) 4 %; MCH 26.2 pg (25.0-35.0); MCHC 30.9 g/dL (31.0-37.0); MCV 84.8 fL (80.0-100.0); Mean Platelet Volume 7.4; Microcytosis Slight; Monocytes # (A) 0.6 k/uL (0-1.0); Monocytes % (A) 6 %; Neutrophils # (A) 8.9 k/uL (1.3-7.7); Neutrophils % (A) 88 %; Platelet Count 298 k/uL (150-450); RBC 5.12 m/uL (3.80-5.40); WBC 10.1 k/uL (3.8-10.6)
[2020-04-30 07:28] LABS: Glucose,Whole Blood 185 mg/dL (75-99)
[2020-04-30] MEDS: INSULIN ASPART (NovoLOG) 100 UNIT/ML VIAL SQ SCH ×3 (08:00→17:23)
[2020-04-30] MEDS: INSULIN DETEMIR (LEVEMIR) 100 UNIT/ML SYR SQ SCH (08:00)
[2020-04-30] MEDS: atenoloL 25 MG TAB PO SCH (08:01)
[2020-04-30] MEDS: GABAPENTIN 400 MG CAP PO SCH ×3 (08:01→17:51)
[2020-04-30] MEDS: PANTOPRAZOLE 40 MG TABLET PO SCH (08:01)
[2020-04-30] MEDS: lisinopriL 20 MG TAB PO SCH (08:01)
[2020-04-30] MEDS: HEPARIN SODIUM,PORCINE 5,000 UNIT/ML 1 ML VIAL SQ SCH (08:01)
[2020-04-30] MEDS: glipiZIDE 10 MG TAB PO SCH ×2 (08:01→17:23)
[2020-04-30] MEDS: FLUCONAZOLE 100 MG TAB PO SCH (08:02)
[2020-04-30] MEDS: NYSTATIN 100,000 UNIT/GM POWD 15 GM TOPICAL SCH (08:02)
[2020-04-30] MEDS: FUROSEMIDE 10 MG/ML 4 ML VIAL IV SCH (08:02)
[2020-04-30] MEDS: MAG HYDROX/AL HYDROX/SIMETH 30 ML, LIDOCAINE VISCOUS 30 ML, diphenhydrAMINE ELIXIR 75 M... PO SCH ×8 (08:03→17:51)
[2020-04-30] MEDS: ALBUTEROL NEBULIZED 2.5 MG/3 ML INHALATION SCH ×3 (08:10→16:07)
[2020-04-30 09:03] LABS: African American GFR (CKD) 75.1 (60.0-200.0); Anion Gap 14.4 mmol/L (4.00-12.00); Calcium 9.9 mg/dL (8.7-10.3); Carbon Dioxide 31.6 mmol/L (21.6-31.8); Non-African American GFR(CKD) 64.8 (60.0-200.0); Potassium 3.2 mmol/L (3.5-5.5)
[2020-04-30 12:05] LABS: Glucose,Whole Blood 149 mg/dL (75-99)
[2020-04-30 12:25] LABS: INR 1.2 (<1.2)
[2020-04-30 12:34] VITALS: BP 150/66; RESP 16; TEMP 98
[2020-04-30] MEDS ORDERED: AMOXIC-POT CLAV 875-125MG 1 EACH TAB PO SCH (13:15)
--- NOTE | 2020-04-30 14:08 | PN ---
PROGRESS NOTE DATE OF SERVICE: 04/30/2020 REASON FOR FOLLOWUP: Infected sacral pressure ulcer. INTERVAL HISTORY: The patient is currently afebrile. The patient is pleasantly confused. Apparently the patient did pull out her MediPort and IV and currently no IV access. The patient denies having any chest pain or cough. No abdominal pain, no diarrhea. EXAMINATION: Blood pressure 150/66, pulse 65, temperature 98. She is 96% on 2 L. General description is an elderly female lying in bed in no distress. Respiratory system: Unlabored breathing, clear to auscultation anteriorly. Heart S1, S2. Regular rate and rhythm. Abdomen soft, no tenderness. LABS: Hemoglobin 13.4, white count 10.1, BUN of 27, creatinine 0.9. The sacral wound culture finalized with Klebsiella and Gram-negative. DIAGNOSTIC IMPRESSION AND PLAN: Patient with infected sacral pressure ulcer. Culture with Pseudomonas and Gram- negative. The patient was on Zosyn, however, the patient had pulled out her IV and has no IV access. Antibiotic was switched over to Augmentin. Local care to continue as ordered. Continue supportive care. MMODL / IJN: [id number] / CAROL ANN
[2020-04-30 16:08] VITALS: PULSE 72
--- NOTE | 2020-04-30 22:56 | DS ---
DISCHARGE SUMMARY DATE OF SERVICE: 04/30/2020 FINAL DIAGNOSES: 1. CA of breast with multiple metastasis and weakness with possibly leptomeningeal METS and spinal METS with mets. 2. Multiple lung metastatic secondary to metastatic malignancy. 3. Bilateral pleural effusion. 4. Gastrointestinal and genitourinary bleeding. 5. Sacral decubitus stage III with possible sepsis on IV Zosyn. 6. Gait dysfunction. 7. Change in mental status. 8. Acute metabolic encephalopathy, acute multifactorial. 9. History of congestive heart failure, recently had hospital admission. 10.Diabetes mellitus type 2. 11.History of gastroesophageal reflux disease. 12.Hypertension. 13.Hypothyroidism. 14.History of chronic hypoxic respiratory failure on 2 L nasal cannula. 15.History of shingles. 16.History of left elbow fracture and surgery. 17.History of nicotine dependence. 18.Obesity with body mass index of 36.8. 19.NO CODE NO CPR NO VENT. HOSPICE CARE. DISCHARGE DISPOSITION: The [facility] being transferred [facility] further evaluation and treatment. Further continued conservative line of management. HISTORY OF PRESENT ILLNESS: This 70-year-old woman with a past medical history of multiple medical problems was admitted with multiple weakness and multiple other medical issues as mentioned earlier. Evaluation including MRI showed possible leptomeningeal METS and extensive metastasis which was progressing. Case was discussed with Dr. Dc and Dr. Dc recommended hospice which was conveyed to the family and the family opted for [facility] and the patient will be transferred to [facility] for hospice care. The overall prognosis extremely guarded because of multiple complex medical issues as listed above and copy of this dictation will be followed Dr. Keagan Latham who is the primary physician. Medications per Hospice. MMODL / IJN: [id number] /
[2020-05-02 10:18] LABS: Aldolase 9.7 U/L (1.2-7.6)
--- NOTE | 2020-05-02 14:31 | CDI ---
Documentation Clarification Form Date: 05/02/20 From: Bridget Gee CCS Phone: If you have a question about this query, please contact Nasima Ledesma, Objective C Developer at [phone] between 8am and 5pm. Admit Date: 04/29/20 Discharge Date:04/30/20 Patient Name: Aniyah Balderrama Visit Number: [id number] ATTENTION: The Clinical Documentation Specialists (CDI) and [facility] Coding Staff appreciate your assistance in clarifying documentation. Please respond to the clarification below the line at the bottom and electronically sign. The CDI & [facility] Coding staff will review the response and follow-up if needed. Please note: Queries are made part of the Legal Health Record. If you have any questions, please contact the author of this message via ITS. Dear Dr. Gagnon, CHF is documented in the H&P, PNs, DS. PN 04/29 documents: Narrative/Plan: This is multifactorial, from cancer progression especially leptomeningeal involvement, as well as superimposed CHF and possible UTI. History/Risk Factors: HTN, DM, Breast CA w/ mets Clinical Indicators: Pleural effusions, Edema VS/Pulse OX: BP 121/70, RR 18, NM 70, O2 Sat 96 BNP: 1370 Echocardiogram Results: 08/28/19- There is mild concentric left ventricular hypertrophy. Overall left ventricular sytolic function is normal with an EF between 55-60 %. Chest X Ray: Diffuse skeletal osseous metastases noted.Mediport catheter seen is bilateral consolidation and small right effusion.Pathologic rib fractures are suggested on the right.Pulmonary nodules in the lungs are suspected in the heart is stable in size. CT Abdomen: Bilateral pleural effusions and lower lobe pulmonary consolidation and atelectasis Treatment: Lasix IV 40 mg In your professional opinion, can you please clarify the acuity and type of CHF if known? Systolic Heart Failure: Acute Chronic Acute on Chronic Diastolic Heart Failure: Acute Chronic Acute on Chronic Systolic & Diastolic Heart Failure: Acute Chronic Acute on Chronic Heart Failure Unable to Determine Other, please specify Diastolic Heart Failure: Chronic MTDD
--- NOTE | 2020-05-02 14:49 | CDI ---
Documentation Clarification Form Date: 05/02/20 From: Bridget Gee CCS Phone: If you have a question about this query, please contact Nasima Ledesma, Quilt Sewer at [phone] between 8am and 5pm. Admit Date: 04/29/20 Discharge Date: 04/30/20 Patient Name: Aniyah Balderrama Visit Number: [id number] ATTENTION: The Clinical Documentation Specialists (CDI) and [facility] Coding Staff appreciate your assistance in clarifying documentation. Please respond to the clarification below the line at the bottom and electronically sign. The CDI & [facility] Coding staff will review the response and follow-up if needed. Please note: Queries are made part of the Legal Health Record. If you have any questions, please contact the author of this message via ITS. Dear Dr. Gagnon, Diabetes poorly controlled with A1c 10.6 is documented in 04/28 Consult, PN 04/29: History/Risk Factors: Chemo/Radiation therapy, Breast CA w/ mets, HTN, Sepsis, Cellulitis, CHF Clinical Indicators: Poorly controlled DM Labs: POC Glucose 352, 340, 309 Treatment: Insulin SQ In order to capture the severity of Illness and necessary documentation specificity, please clarify: DM Type 2 uncontrolled with hyperglicemia DM Type 2 poorly controlled Other, please specify Unable to Determine DM Type 2 uncontrolled with hyperglicemia MTDD
== END 2020-04-30 20:00 | disposition hospice, inpatient (51) | DRG 871 ==
LOC: EC 10:17 → 6NMEDSUR 14:39 → OBSVTOIN 04-29 15:19
PROVIDERS: ADMIT Internal Medicine; ATTEND Internal Medicine
DX: A41.9 Sepsis, unspecified organism (principal); G93.41 Metabolic encephalopathy; L89.153 Pressure ulcer of sacral region, stage 3; J96.11 Chronic respiratory failure with hypoxia; M50.00 Cervical disc disorder with myelopathy, unspecified cervical region; C79.49 Secondary malignant neoplasm of other parts of nervous system; C79.51 Secondary malignant neoplasm of bone; R47.01 Aphasia; K92.2 Gastrointestinal hemorrhage, unspecified; N13.30 Unspecified hydronephrosis; C78.00 Secondary malignant neoplasm of unspecified lung; C78.7 Secondary malignant neoplasm of liver and intrahepatic bile duct; I50.32 Chronic diastolic (congestive) heart failure; L03.317 Cellulitis of buttock; I11.0 Hypertensive heart disease with heart failure; E11.42 Type 2 diabetes mellitus with diabetic polyneuropathy; C50.912 Malignant neoplasm of unspecified site of left female breast; Z99.81 Dependence on supplemental oxygen; E11.65 Type 2 diabetes mellitus with hyperglycemia; Z51.5 Encounter for palliative care; Z66 Do not resuscitate; K21.9 Gastro-esophageal reflux disease without esophagitis; B02.9 Zoster without complications; H53.9 Unspecified visual disturbance; R29.6 Repeated falls; E03.9 Hypothyroidism, unspecified; E66.9 Obesity, unspecified; M21.332 Wrist drop, left wrist; M48.02 Spinal stenosis, cervical region; R32 Unspecified urinary incontinence; M15.9 Polyosteoarthritis, unspecified; B96.5 Pseudomonas (aeruginosa) (mallei) (pseudomallei) as the cause of diseases classified elsewhere; N93.9 Abnormal uterine and vaginal bleeding, unspecified; G89.3 Neoplasm related pain (acute) (chronic); R26.89 Other abnormalities of gait and mobility; W19.XXXA Unspecified fall, initial encounter; Z68.36 Body mass index [BMI] 36.0-36.9, adult; Z79.890 Hormone replacement therapy; Z79.84 Long term (current) use of oral hypoglycemic drugs; Z79.899 Other long term (current) drug therapy; Z95.828 Presence of other vascular implants and grafts; Z85.3 Personal history of malignant neoplasm of breast; Z87.891 Personal history of nicotine dependence; Z87.81 Personal history of (healed) traumatic fracture; Z98.890 Other specified postprocedural states; Z88.8 Allergy status to other drugs, medicaments and biological substances; Z88.6 Allergy status to analgesic agent; Z88.1 Allergy status to other antibiotic agents; Z91.041 Radiographic dye allergy status; Z80.1 Family history of malignant neoplasm of trachea, bronchus and lung; Z82.49 Family history of ischemic heart disease and other diseases of the circulatory system; Z80.42 Family history of malignant neoplasm of prostate; Z80.3 Family history of malignant neoplasm of breast
CPT/HCPCS: 36415; 70450; 70553; 71046; 71275; 72156; 74177; 80048; 80053; 81001; 82085; 82272; 82550; 82607; 82746; 83036; 83605; 83735; 83880; 84132; 84207; 84425; 84443; 84484; 85025; 85379; 85610; 85730; 87070; 87075; 87077; 87186; 87205; 93005; 94640; 94760; 96374; 96375; 99285